=== PATIENT | female | born 2000 | race Caucasian/White ===

== ENCOUNTER 2025-03-10 11:46 | Outpatient (CLI) | payer OTHER, SELFPAY ==
[2025-03-10 16:05] LABS: Absolute Lymphocyte Count 1.82 X10^3/uL (0.83-4.51); Absolute Neutrophil Count 3.5 X10^3/uL (2.0-7.7); Basophil# 0.04 X10^3/uL; Basophil% 0.7 % (0-1); Eosinophil# 0.26 X10^3/uL; Eosinophils% 4.4 % (0-5); Hematocrit 41.4 % (37-47); Hemoglobin 14.1 g/dL (12.0-15.0); Lymphocyte # 1.82 X10^3/ul (0.83-4.51); Lymphocyte % 30.7 % (19-41); Mean Corp Hgb Conc 34.1 g/dL (32-36); Mean Corpuscular Hgb 30.3 pg (27.0-32.0); Mean Corpuscular Volume 88.8 fL (81-99); Mean Platelet Vol. 9.8 fl (6.2-12.0); Monocyte# 0.34 X10^3/uL; Monocyte% 5.7 % (0-10); NRBC Flagged by Analyzer 0 % (0-5); Neutrophil # 3.45 X10^3/uL (2.7-7.7); Neutrophil % 58.2 % (47-70); Platelet Count 277 K/mm3 (150-450); RBC Distribution Width CV 11.9 % (11.6-14.6); RBC Distribution Width SD 38.4 fl (35.1-43.9); Red Blood Count 4.66 M/mm3 (4.2-5.4); White Blood Count 5.9 K/mm3 (4.4-11.0)
[2025-03-11 15:09] LABS: ALB/GLOB Ratio 1.9 RATIO (0.9-2.4); AST(SGOT) 16 U/L (<=31); Alanine Aminotransfer ALT/SGPT 10 U/L (<=34); Alkaline Phosphatase 59 U/L (35-104); Anion Gap 13 (5-15); BUN 11 mg/dL (4-19); BUN/Creat Ratio 15.4 RATIO (10-20); Calcium,Total 9.8 mg/dL (7.6-11.0); Carbon Dioxide 21.2 mmol/L (21.0-32.0); Chloride 105 mmol/L (98-108); Creatinine, Serum 0.71 mg/dL (0.70-1.20); EST Glomerular Filtration Rate 122 (>60); Globulin 2.7 g/dL (2.2-4.2); Glucose 92 mg/dL (70-99); Protein, Total 7.6 g/dL (5.9-8.4); Sodium Level 139 mmol/L (133-145); Total Bilirubin 0.76 mg/dL (0.00-1.30)
[2025-03-11 15:51] LABS: Vitamin D,25 Hydroxy 13.7 ng/mL (30-100)
[2025-03-12 15:08] LABS: Endomysial Antibody IgA Negative (Negative); Immunoglobulin A 104 mg/dL (87-352); t-Transglutaminase IgA <2 U/mL (0-3)
[2025-03-14 23:07] LABS: ANTINUCLEAR ANTIBODIES DIRECT Negative (Negative); Anti-Centromere B Ab <0.2 AI (0.0-0.9); Anti-Chromatin <0.2 AI (0.0-0.9); Anti-Jo <0.2 AI (0.0-0.9); Anti-Scleroderma-70 AB <0.2 AI (0.0-0.9); Anti-dsDNA Ab <1 IU/mL (0-9); Beef 0.34 kU/L (Class I); Chocolate <0.10 kU/L (Class 0); Codfish <0.10 kU/L (Class 0); Corn <0.10 kU/L (Class 0); Egg, Whole <0.10 kU/L (Class 0); Milk (Cow) 0.72 kU/L (Class II); Mussels <0.10 kU/L (Class 0); Peanut <0.10 kU/L (Class 0); Pork <0.10 kU/L (Class 0); RNP Ab <0.2 AI (0.0-0.9); SJOGREN'S Anti-SS-A test < 0.2 AI (0.0-0.9); SJOGREN'S Anti-SS-B test < 0.2 AI (0.0-0.9); Salmon <0.10 kU/L (Class 0); Shrimp <0.10 kU/L (Class 0); Smith Ab <0.2 AI (0.0-0.9); Soybean <0.10 kU/L (Class 0); Tuna <0.10 kU/L (Class 0); Wheat <0.10 kU/L (Class 0)
== END 2025-03-10 23:59 | disposition home or self-care (01) ==
LOC: BIMLAB 11:49
PROVIDERS: PCP Internal Medicine; Referring Provider Internal Medicine; Visit Provider Internal Medicine
DX: R10.9 Unspecified abdominal pain (principal); G89.29 Other chronic pain
CPT/HCPCS: 36415; 80053; 82306; 82784; 83516; 84443; 85025; 86003; 86005; 86038; 86225; 86235; 86255

== ENCOUNTER → 2025-04-28 | Outpatient (CLI) | payer OTHER, SELFPAY ==
[2025-04-28 16:27] LABS: Hematocrit 41.3 % (37-47); Hemoglobin 14.1 g/dL (12.0-15.0); Immature Granulocytes Count 0.010 X10^3/uL (0.0-0.0); Mean Corp Hgb Conc 34.1 g/dL (32-36); Mean Corpuscular Volume 88.2 fL (81-99); Mean Platelet Vol. 9.5 fl (6.2-12.0); NRBC Flagged by Analyzer 0 % (0-5); Platelet Count 311 K/mm3 (150-450); RBC Distribution Width CV 11.9 % (11.6-14.6); RBC Distribution Width SD 38.2 fl (35.1-43.9); Red Blood Count 4.68 M/mm3 (4.2-5.4); White Blood Count 6.2 K/mm3 (4.4-11.0)
== END | disposition home or self-care (01) ==
LOC: LAB 15:56
PROVIDERS: PCP Internal Medicine; Referring Provider Nurse Practitioner Acute Care; Visit Provider Nurse Practitioner Acute Care
DX: K92.1 Melena (principal); R10.13 Epigastric pain; R11.0 Nausea; R10.32 Left lower quadrant pain
CPT/HCPCS: 36415; 85025

== ENCOUNTER → 2025-06-02 | Outpatient (CLI) | payer OTHER, SELFPAY ==
--- NOTE | 2025-06-02 10:06 | US_ITS ---
PROCEDURE: ABDOMEN LIMITED 06/02/2025 REASON FOR EXAM: EPIGASTRIC PAIN, BLOATING TECHNIQUE: Procedure Code: USABDL Modality: US Procedure: ABDOMEN LIMITED COMPARISON: None FINDINGS: Liver: Fatty infiltration of the liver is noted without a discrete lesion. No intrahepatic biliary dilatation, liver measures 14.9 cm Gallbladder: No stones, sludge, wall thickening or tenderness. Wall measures 1.9 mm, no pericholecystic fluid Common bile duct: Normal measuring 2.6 mm. Pancreas: Normal Kidneys: The right kidney measures 10.7 cm. No hydronephrosis, calculi or mass US/Abdomen Limited IMPRESSION: Fatty liver, no discrete lesion, otherwise unremarkable abdominal sonogram Reading Location: [id number]
== END | disposition home or self-care (01) ==
LOC: US 10:04
PROVIDERS: PCP Internal Medicine; Referring Provider Nurse Practitioner Acute Care; Visit Provider Nurse Practitioner Acute Care
DX: R11.0 Nausea (principal); R10.13 Epigastric pain; R10.32 Left lower quadrant pain
CPT/HCPCS: 76705

== ENCOUNTER 2025-06-16 10:24 | Day surgery (SDC) | payer OTHER, SELFPAY ==
[2025-06-16] VITALS (8 sets, daily range): BP systolic 86–109; BP diastolic 53–68; PULSE 55–65; RESP 14–16; TEMP 36.6–36.9; O2SAT 96–100; BMI 17.4
--- NOTE | 2025-06-16 10:30 | PRE.ANES_ITS ---
ASA Classification* ASA Classification ASA Classification: 2 Assessment & Plan Anesthesia* Anesthesia Assessment Anesthesia Assessment: Discussed sedation and/or anesthesia options, risks, benefits, and alternatives with patient/parents/legal guardian/POA. Questions invited. The patient/parents/legal guardian/POA seems to understand and agrees to proceed with anesthesia plan. Reviewed the physical assessment, medical history, allergy history and patient home medications list prior to surgery/procedure/anesthetic and documented any changes. Performed airway and anesthesia risk assessments. Anesthesia Type Anesthesia Type: MAC Anesthesia Focused Assessment* Airway Assessment Mouth opens: >3 cm Mallampati Score: II Labs Anesthesia Preop lab: CBC WBC, (4.4-11.0) 6.2 K/mm3 04/28/25, 16:00 RBC, (4.2-5.4) 4.68 M/mm3 04/28/25, 16:00 Hgb, (12.0-15.0) 14.1 g/dL 04/28/25, 16:00 Hct, (37-47) 41.3 % 04/28/25, 16:00 Plt Count, (150-450) 311 K/mm3 04/28/25, 16:00 CHEMISTRY Potassium, (3.3-5.1) 4.0 mmol/L 03/10/25, 11:49 Sodium, (133-145) 139 mmol/L 03/10/25, 11:49 BUN, (4-19) 11 mg/dL 03/10/25, 11:49 Creatinine, (0.70-1.20) 0.71 mg/dL 03/10/25, 11:49 Glucose, (70-99) 92 mg/dL 03/10/25, 11:49 TSH, (0.300-4.200) 2.570 uIU/mL 03/10/25, 11:49 COAG Pre-Assessment Diagnosis/Proposed Procedure Planned Operative Procedure(s): EGD Anesthesia History 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 When Was Last Pacemaker Check QUESTION #4 FULL TEXT: You/Your Family Experience fever (hyperthermia) with Anesthesia Last Oral Intake Last Oral intake: Last Oral Intake NPO since Meds taken in AM with sips of water? Meds patient instructed to take am of surgery PONV PONV - loader technician: PONV - loader technician Female Yes 06/11/25 09:25 HX of Motion Sickness No 06/11/25 09:25 HX of N/V After Surgery No 06/11/25 09:25 Non-Smoker Yes 06/11/25 09:25 Duration of Surgery greater No 06/11/25 09:25 than 60 minutes Number of Risk Factors 2 06/11/25 09:25 PONV Score Moderate Risk 06/11/25 09:25 Height & Weight Height & Weight: Anesthesia: Height & Weight Height 5 ft 4 in 05/19/25 15:00 Respiratory Assessment Respiratory Assessment - loader technician: Respiratory Tract Infection Hx - loader technician Hx Respiratory Tract Infection No 06/11/25 09:25 STOP Sleep Apnea STOP Sleep Apnea - loader technician: STOP Sleep Apnea - loader technician Hx Hypertension No 06/11/25 09:25 Hx Sleep Apnea No 06/11/25 09:25 CPAP BIPAP Do you snore loudly (louder No 06/11/25 09:25 than talking or can be heard Do you often feel tired/ No 06/11/25 09:25 fatigued/ sleepy during daytime? Has anyone observed you stop No 06/11/25 09:25 breathing during sleep? STOP Results Negative 06/11/25 09:25 QUESTION #5 FULL TEXT : Do you snore loudly (louder than talking or can be heard through closed doors)? 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 Specify any problems Hx of Preganancy in last 3 No 06/11/25 09:25 Months Nurse Filling Out Transfusion VCHRISTIN 06/11/25 09:25 & Questions: Date: 06/11/25 06/11/25 09:25 Time: 06/11/25 09:25 Patient unable to answer at this time (ie. confused, unrespo /Reproduction History /Reproductive History - loader technician: /Reproductive Hx- loader technician Hx Now No 06/11/25 09:25 Gestational Age (in weeks): EDC: Hx Hx Para Hx Section SAB No 06/11/25 09:25 [facility] Medical History History of steroid therapy Anemia Back pain Gastric reflux Non-smoker COVID Mononucleosis Depression Allergy/AdvReac Type Severity Reaction Status Date / Time Beef Containing Products AdvReac Severe Upset Verified 06/11/25 09:19 Stomach Milk Containing Products AdvReac Severe Upset Verified 06/11/25 09:19 (Dairy) Stomach Family History Mother Hyperlipidemia Father Heart disease Hypertension Grandmother Breast cancer Grandmother Diabetes Aunt Diabetes Surgical History Hx of tonsillectomy H/O wisdom tooth extraction Social History adopted: No household members: significant other and family number of children: 0 current occupational status: employed 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
--- NOTE | 2025-06-16 10:31 | PCM.HP.STD ---
HPI - General General Date of Admission: 06/16/25 Date of Service: 06/16/25 Chief Complaint: abdominal pain HPI Narrative 25-year-old female with a history of chronic abdominal pain, nausea, and possible lactose intolerance presenting with worsening symptoms over the last two years. The patient's clinical presentation suggests potential gastrointestinal pathology such as gastroesophageal reflux disease (GERD) or peptic ulcer disease, especially given the report of black stools indicative of possible upper gastrointestinal bleeding. Further complications may be attributed to a complex interplay of factors including dietary allergies, previous ovarian cysts, and underlying adenomyosis. Suspected constipation and overflow diarrhea may contribute to her current symptomatology due to fecal retention observed in prior imaging. CBC today H. pylori stool Pantoprazole 40mg once daily - Begin pantoprazole only after completing stool test. - Follow dietary restrictions for identified food allergies. - Drink plenty of fluids to help with bowel regularity. - Collect stool sample as per provided instructions and call [employer] for collection. - Schedule follow-up appointment in three weeks to review test results and progress. - Visit the lab today for blood work and contact us if you have any concerns or questions. - Address any unusual symptoms, such as continued black stools or increased pain, with immediate medical consultation. Please advise patient stool testing is negative for acute infection and calprotectin is normal. Stool was positive for Enterotoxigenic Escherichia coli (ETEC); however, this is not something that we treat unless patient are experiencing severe watery diarrhea. This is likely colonized with calprotectin being normal. 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 [facility] Medical History History of steroid therapy Anemia Back pain Gastric reflux Non-smoker COVID Mononucleosis Depression Allergy/AdvReac Type Severity Reaction Status Date / Time Beef Containing Products AdvReac Severe Upset Verified 06/11/25 09:19 Stomach Milk Containing Products AdvReac Severe Upset Verified 06/11/25 09:19 (Dairy) Stomach Family History Mother Hyperlipidemia Father Heart disease Hypertension Grandmother Breast cancer Grandmother Diabetes Aunt Diabetes Surgical History Hx of tonsillectomy H/O wisdom tooth extraction Social History adopted: No household members: significant other and family number of children: 0 current occupational status: employed 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 pets and animals: Yes (3) pets and animals: cat(s) sexually active: Yes Smoking Status: Never smoker Tobacco: How many years used: 1 how long ago did patient quit smokin alcohol intake: never substance use type: does not use caffeine: Yes (1) Type: coffee what type of physical activity do you participate in: walking frequency: daily do you feel safe at home: Yes ROS Constitutional Constitutional: Denies fatigue, fever(s), poor appetite, weight gain or weight loss Gastrointestinal Gastrointestinal: Denies belching, bloating, change in bowel habits, change in stool character, chewing difficulty, coffee ground emesis, constipation, cramping, diarrhea, dyspepsia, dysphagia, early satiety, excessive flatus, fecal incontinence, heartburn, hematemesis, hematochezia, hemorrhoids, loose stools, melena, nausea, odynophagia, rectal bleeding, tenesmus, vomiting or weight changes Physical Exam Const alert, oriented x3, no apparent distress and healthy appearing General Appearance: cooperative GI normal to inspection, nondistended, normoactive bowel sounds, soft to palpation, non-tender and non-distended Percussion: normal to percussion Rectal Exam: deferred Assessment & Plan Assessment/Plan (1) Abdominal cramping: (2) LLQ pain: (3) Nausea: PLAN: Assessment and Plan Assessment and Plan (1) Epigastric pain: Status: Acute (2) Nausea: Status: Acute (3) LLQ pain: Status: Acute (4) Abdominal cramping: Status: Acute Orders: Orders Abdomen Limited Today R10.13 - Epigastric pain, R10.32 - Left lower quadrant pain, R11.0 - Nausea Medications: New linaclotide (Linzess) take once daily 30 minutes before breakfast every morning 145 mcg PO QAM 90 caps 1RF Plan 25-year-old female presents for 3-week follow-up of epigastric and LLQ abdominal pain, nausea, and vomiting. Stool testing is negative for acute infection and calprotectin is normal. Stool was positive for Enterotoxigenic Escherichia coli (ETEC); however, this is not something that we treat unless patient are experiencing severe watery diarrhea. This is likely colonized with calprotectin being normal. She denies any improvement in her gastrointestinal symptoms with avoiding food allergens. She has noted an improvement in nausea and near resolution of emesis with pantoprazole 40 mg once daily. However, she does continue to experience epigastric tenderness and heartburn. She denies any use of nonsteroidal medications in the past month. She is continuing to experience of bloating and constipation, reporting going up to a week without a bowel movement. She has increased her oral intake, now eating at least 2 meals daily. Her weight is stable. I have scheduled her for an abdominal ultrasound and EGD. She will continue pantoprazole daily and start Linzess 145 mcg once daily. She will follow-up in 3 weeks. Plan Details Follow Up: 3 Weeks
[2025-06-16 10:50] LABS: Internal QC Validated? YES +Cl - CLEAR BKGD; Pregnancy, Urine Negative Negative; Record Kit Lot#,Urine Preg 0000964736
[2025-06-16] MEDS: Lactated Ringers 1,000 ML 15 ML IV (11:07)
--- NOTE | 2025-06-16 11:30 | EGD_PTH ---
PATIENT: EDISON PUENTE LOC: EN U#:[id number] AGE/SX: 25/F ROOM: RE06/16/[address]: Dr. Mike Alarcon DO : 2000 BED: DIS: 06/16/2025 SPEC #: [id number] RECD: 06/16/25 13:50 STATUS: LOUIS REMalu #: [id number] TEAGAN: 06/16/25 11:[address]: Mike Alarcon DEPT: SURGICAL PATHOLOGY RECD BY: Jon Covarrubias ENTERED: 06/16/25 14:34 SP TYPE: EGD BIOPSY PHILIPPE DR: Dr. Melissa Newsome MD Tissues: A - Duodenum, NOS B - Gastric mucous membrane C - Esophagus, NOS Procedures: Surgery Specimen Level IV HEADER OPERATION: EGD PRE-OP DIAGNOSIS: Epigastric pain, nausea, left lower quadrant pain, abdominal cramping TISSUE SUBMITTED: A- Duodenum biopsy, B- Gastric body biopsy, C- Distal esophagus biopsy MICROSCOPIC DIAGNOSIS A. Duodenum, biopsy: * Normal villous architecture with Bradley gland hyperplasia. * Negative for increased intraepithelial lymphocytes. B. Gastric body, biopsy: * Antral and oxyntic mucosa with features of reactive gastropathy - see note. * Negative for Helicobacter-like organisms (H&E). Note: A fragment of small intestinal mucosa is also noted, favor carryover from part A. Recommend clinical/endoscopic correlation. C. Distal esophagus, biopsy: * Columnar mucosa negative for goblet cell metaplasia. * Focal scant benign squamous mucosa. MICROSCOPIC DESCRIPTION Slides are reviewed. GROSS DESCRIPTION A. Received in fixative is one container labeled with the patient's name and designated "Duodenum biopsy." The specimen consists of two irregular fragments of cameron tissue that measure 0.4 and 0.6 cm. The specimen is totally submitted in one cassette. B. Received in fixative is one container labeled with the patient's name and designated "Gastric body biopsy." The specimen consists of three irregular fragments of cameron tissue that measure <0.1 to 0.4 cm. Smallest fragment may not survive processing. The specimen is totally submitted in one cassette. C. Received in fixative is one container labeled with the patient's name and designated "Distal esophagus biopsy." The specimen consists of two irregular fragments of cameron tissue, each measuring 0.4 cm. The specimen is totally submitted in one cassette. [place] 06/16/2025 CPT:64386x5
--- NOTE | 2025-06-16 12:18 | OP.EGD_ITS ---
Patient Name: Heide York Procedure Date: 06/16/2025 11:59 AM Date of : 2000 Age: 25 Procedure: Upper GI endoscopy Indications: Epigastric abdominal pain, Functional Dyspepsia, Indigestion, Heartburn Providers: Mike Alarcon DO Referring MD: Melissa Newsome Md Medicines: Monitored Anesthesia Care Patient Profile: This is a 25 year old female. Refer to note in patient chart for documentation of history and physical. Patient has symptoms of acute epigastric abdominal pain. Complications: No immediate complications. Procedure: Pre-Anesthesia Assessment: - Prior to the procedure, a History and Physical was performed, and patient medications and allergies were reviewed. The patient is competent. The risks and benefits of the procedure and the sedation options and risks were discussed with the patient. All questions were answered and informed consent was obtained. Patient identification and proposed procedure were verified by the physician in the pre-procedure area. Mental Status Examination: alert and oriented. Airway Examination: normal oropharyngeal airway and neck mobility. Respiratory Examination: clear to auscultation. CV Examination: normal. Prophylactic Antibiotics: The patient does not require prophylactic antibiotics. Prior Anticoagulants: The patient has taken no anticoagulant or antiplatelet agents except for NSAID medication. ASA Grade Assessment: II - A patient with mild systemic disease. After reviewing the risks and benefits, the patient was deemed in satisfactory condition to undergo the procedure. The anesthesia plan was to use monitored anesthesia care (MAC). Immediately prior to administration of medications, the patient was re-assessed for adequacy to receive sedatives. The heart rate, respiratory rate, oxygen saturations, blood pressure, adequacy of pulmonary ventilation, and response to care were monitored throughout the procedure. The physical status of the patient was re-assessed after the procedure. After obtaining informed consent, the endoscope was passed under direct vision. Throughout the procedure, the patient's blood pressure, pulse, and oxygen saturations were monitored continuously. The Endoscope was introduced through the mouth, and advanced to the third part of the duodenum. Small bowel enteroscopy was deemed necessary. The upper GI endoscopy was accomplished without difficulty. The patient tolerated the procedure well. Scope In: 12:07:03 PM Scope Out: 12:11:51 PM Total Procedure Duration Time 0 hours 4 minutes 48 seconds Findings: The Z-line was irregular and was found 39 cm from the incisors. Biopsies were taken with a cold forceps for histology. Verification of patient identification for the specimen was done. Estimated blood loss was minimal. Patchy mildly erythematous mucosa without bleeding was found in the gastric body. Biopsies were taken with a cold forceps for histology. Verification of patient identification for the specimen was done. Estimated blood loss was minimal. Biopsies were taken with a cold forceps for Helicobacter pylori testing. Verification of patient identification for the specimen was done. Estimated blood loss was minimal. Patchy mildly erythematous mucosa without active bleeding and with no stigmata of bleeding was found in the entire duodenum. Biopsies were taken with a cold forceps for histology. Verification of patient identification for the specimen was done. Estimated blood loss was minimal. Impression: - Z-line irregular, 39 cm from the incisors. Biopsied. - Erythematous mucosa in the gastric body. Biopsied. - Erythematous duodenopathy. Biopsied. Recommendation: - Discharge patient to home. - Resume previous diet. - Continue present medications. Procedure Code(s): --- Professional --- 90211, Small intestinal endoscopy, enteroscopy beyond second portion of duodenum, not including ileum; with biopsy, single or multiple CPT copyright 2021 [employer]. All rights reserved. The codes documented in this report are preliminary and upon soda fountain clerk review may be revised to meet current compliance requirements. Mike Alarcon DO 06/16/2025 12:17:43 PM This report has been signed electronically. Number of Addenda: 0 Note Initiated On: 06/16/2025 11:59 AM
--- NOTE | 2025-06-16 12:18 | OP.PROVAT_ITS ---
06/16/2025 Melissa Newsome Md Re : Upper GI endoscopy procedure for Heide York Dear Jerod This procedure was performed on Monday, June 16, 2025. My impressions and recommendations are as follows: Impressions : - Z-line irregular, 39 cm from the incisors. Biopsied. - Erythematous mucosa in the gastric body. Biopsied. - Erythematous duodenopathy. Biopsied. Recommendations : - Discharge patient to home. - Resume previous diet. - Continue present medications. My findings are described in the full procedure note, which is enclosed. If I can be of further assistance, please feel free to contact me at . Sincerely, Mike Alarcon, 06/16/2025 12:17:43 PM This report has been signed electronically.
--- NOTE | 2025-06-16 12:31 | PCM.POST.ANE ---
Anesthesia: Postop Eval I Current Vital Signs Temperature: 97.9 F Pulse Rate: 61 Blood Pressure: 89/53 Respiratory Rate: 16 Pulse Ox: 97 Oxygen Delivery Method: Room Air Assessment Airway patent: Yes Spontaneous unlabored respirations: Yes Mental status: Asleep nausea: No Vomiting: No Anesthesia Complication: No Fluid Hydration Crystalloid volume administer (ml): 400 Total IV fluid infused: 400 Progress Note Anesthesia document: Postop Eval 1 completed: Yes
--- NOTE | 2025-06-16 13:04 | PCM.POSTANE2 ---
Anesthesia Postop Eval I Sum Postop Eval Completion status Anesthesia document: Postop Eval 1 completed: Yes Anesthesia Postop Eval I Summary Anesthesia Postop Eval I Summary: Anesthesia Postop Eval I: Assessment Summary Airway patent Yes 06/16/25 12:32 [email or web address] Spontaneous unlabored Yes 06/16/25 12:32 [email or web address] respirations Mental status Asleep 06/16/25 12:32 [email or web address] nausea No 06/16/25 12:32 [email or web address] Vomiting No 06/16/25 12:32 [email or web address] Anesthesia Postop Eval I: Fluid Summary Crystalloid volume administer 400 06/16/25 12:32 [email or web address] (ml) Colloids volume administered ( ml) Blood Product volume administered (ml) Total IV fluid infused 400 06/16/25 12:32 [email or web address] Anesthesia Postop Eval I: Summary Notes Anesthesia Complication No 06/16/25 12:32 [email or web address] Anesthesia Complication Comment: Post-operative progress note Anesthesia: Postop Eval II Evaluation Mental status: Awake Pain Level: 0 nausea: No Vomiting: No
== END 2025-06-16 13:22 | disposition home or self-care (01) ==
LOC: EN 10:29 → AC 10:29
PROVIDERS: Anesthesiology; PCP Internal Medicine; Referring Provider Internal Medicine; Visit Provider Internal Medicine Gastroenterology
PROC: 0DJ08ZZ Inspection of Upper Intestinal Tract, Via Natural or Artificial Opening Endoscopic (ICD-10-PCS; CPT 43235; principal; 2025-06-16 11:25)
DX: R10.32 Left lower quadrant pain (principal); R10.13 Epigastric pain; R11.2 Nausea with vomiting, unspecified; K31.89 Other diseases of stomach and duodenum; K92.89 Other specified diseases of the digestive system
CPT/HCPCS: 43239; 81025; 88305; J2405

== ENCOUNTER → 2025-06-19 | Outpatient (CLI) | payer OTHER, SELFPAY | END | disposition home or self-care (01) | LOC: LABSPEC 12:11 | PROVIDERS: PCP Internal Medicine; Referring Provider Nurse Practitioner Family; Visit Provider Nurse Practitioner Family | DX: Z12.4 Encounter for screening for malignant neoplasm of cervix (principal) | CPT/HCPCS: 88175; G0145 ==

== ENCOUNTER 2025-09-16 20:16 | Emergency (ER) | payer OTHER, SELFPAY ==
[2025-09-16 20:17] VITALS: BP 111/67; PULSE 76; RESP 16; TEMP 37.2; O2SAT 100; BMI 18.0
--- NOTE | 2025-09-16 20:42 | US_ITS ---
PROCEDURE: BREAST LIMITED UNILATERAL 09/16/2025 REASON FOR EXAM: F, Age 25 y/o , SWELLING, WHITE DISCHARGE FROM NIPPLE, NOT BREASTF COMPARISON: . TECHNIQUE: Procedure Code: USBRSTLIMIT Modality: US Procedure: BREAST LIMITED UNILATERAL FINDINGS: Left breast 7 o'clock 3 cm from nipple 2.3 x 0.9 cm hypoechoic circumscribed lesion with vascularity. No mammogram provided. US/Breast Limited Unilateral IMPRESSION: Left breast hypoechoic circumscribed solid lesion at the 7 o'clock position, 3 cm from the nipple, measuring 2.3 x 0.9 cm, with internal vascularity. Imaging features are indeterminate. BI-RADS Category 4. Ultrasound-guided biopsy is recommended. No prior mammogram is available for correlation. Reading Location: [facility]
--- OUTSIDE RECORDS SUMMARY | 2025-09-16 20:53 | XMS RPT_ITS | CCD ---
Author Organization [facility] Care Team Providers Care Hoisting Machine Operator Name Role Phone BHOJRAJ, WILFREDO P. Referring Unavailable BHOJRAJ, WILFREDO P. Attending Unavailable BHOJRAJ, WILFREDO P. Primary Care Unavailable MONICA, JESSIE W Referring Unavailable MARLON SCHMITZ Attending Unavailable BHOJRAJ, WILFREDO Primary Care Unavailable MONICA, JESSIE Hayes Attending Unavailable BHOJRAJ, WILFREDO Primary Care Unavailable SELF, SELF Referring Unavailable MONICA, JESSIE W Referring Unavailable BHOJRAJ, WILFREDO Primary Care Unavailable BHOJRAJ, WILFREDO Primary Care Unavailable MONICA, JESSIE W Admitting Unavailable MONICA, JESSIE W Attending Unavailable BHOJRAJ, WILFREDO Primary Care Unavailable MONICA, JESSIE Hayes Attending Unavailable BHOJRAJ, WILFREDO Primary Care Unavailable SELF, SELF Referring Unavailable MONICA, JESSIE Hayes Attending Unavailable SELF, SELF Referring Unavailable BHOJRAJ, WILFREDO P Primary Care Unavailable MARLON TRAYLOR Attending Unavailable [facility] Primary Care Provider U navailable Unavailable Primary Care Provider Unavailabl e Dr. Melissa Newsome MD Attending Provider Dr. Melissa Newsome MD Primary Care Provider [phone] Dr. Melissa Newsome MD Referring Provider MICHELLE TUBBS Attending Unavailable FABIOLA HUANG Attending Unavailable Mary Cervantes Attending Provider Mary Cervantes Referring Provider Jerod ROME, Dr. Torres Attending Physician Dr. Melissa Newsome MD Primary Care Physician Mary Cervantes Attending Physician [phone] Dr. Mike Alarcon DO Attending Physician [phone] Agnes VELAZCO, Dr. Mckeon Nurse Practitioner Jaz Bustos Attending Physician [phone] Rachel MANAGER EDUCATION-CJaz Referring Provider [phone] NO, PHYSICIAN Primary Care Unavailable GREGORY GARDNER Attending Unavailable Mary Chauhan Attending Unavailable Mary Chauhan Referring Unavailable Jerod, Melissa Primary Care Unavailable Tien, Mary Referring Unavailable Jerod, Melissa Primary Care Unavailable Mary Chauhan Attending Unavailable Jerod, Melissa Primary Care Unavailable Jaz Ramos Attending Unavailable Jaz Ramos Referring Unavailable Jerod, Melissa Referring Unavailable Jerod, Melissa Primary Care Unavailable [place], Melissa Attending Unavailable [place], Melissa Primary Care Unavailable Mike Alarcon Attending Unavailable [place], Melissa Referring Unavailable [place], Melissa Primary Care Unavailable TienMary green Attending Unavailable [place], Melissa Referring Unavailable [place], Melissa Primary Care Unavailable Mike Alarcon Consulting Unavailable FriendMike Attending Unavailable [place], Melissa Referring Unavailable Jerod, Melissa Attending Unavailable Jerod, Melissa Referring Unavailable TienKathyMary Attending Unavailable Jerod, Melissa Primary Care Unavailable TienMary Attending Unavailable Jerod, Melissa Primary Care Unavailable [place], Melissa Referring Unavailable [place], Melissa Primary Care Unavailable Jaz Ramos Attending Unavailable Jerod, Melissa Referring Unavailable [place] , Dr. Torres Primary Care Physician Dr. Melissa Newsome MD Referring Provider Tine MANAGER EDUCATION-Mary Jones Attending Physician [phone] Tien MANAGER EDUCATION-CMary Referring Provider Agnes VELAZCO, Dr. Mckeon Attending Physician [phone] Dr. Mike Alarcon DO Nurse Practitioner Jaz Bustos Attending Physician Jaz Bustos Referring Provider [phone] Allergies Allergy Classification Reported Allergen(s) Allergy Type Date of Onset Reaction(s) Facility (4 sources) Beef Containing Products Propensity to adverse reactions 5 Upset Stomach [facility] (4 sources) Milk Containing Products (Dairy) Propensity to adverse reactions Upset Stomach [facility] (1 source) Beef Containing Products Drug allergy (disorder) [facility] Repository (1 source) Milk Containing Products (Dairy) Drug allergy (disorder) [facility] Repository Medications Current Medications Medication Drug Class(es) Dates Sig (Normalized) Sig (Original) cephalexin 250 mg oral capsule (1 source) Cephalosporin Antibacterial Start: 07-30-2024 End: 08-06-2024 take 1 capsule by mouth four times daily cephALEXin (KEFLEX) 250 mg capsule Indications: Acute UTI Take 1 capsule by mouth four times daily for 7 days. 28 capsule 07/30/2024 08/06/2024 Active levonorgestrel 0.368600 mg/hr intrauterine system (11 sources) Progestin, Progestin-containin g Intrauterine Device Start: 06-19-2025 Levonorgestrel (Kyleena) 17.5 mcg/24 hr (5 yrs) 19.5 mg intrauterine device Active 1 NMA INTRA-UTER ONCE June 18, 2025 11:00pm as a single dose Complies with drug therapy Start: 06-19-2025 Start: 06-19-2025 Start: 12-24-2020 levonorgestrel (KYLEENA) 17.5 mcg/24 hrs (5 yrs) 19.5 mg IUD Take by intrauterine route. 12/24/2020 Active Comment on above: Take by intrauterine route. lubiprostone 0.008 mg oral capsule (1 source) Chloride Channel Activator Start: take 1 capsule by mouth twice daily Lubiprostone (Amitiza) 8 mcg capsule Active 8 ug PO TWICE A DAY 60 July 13, 2025 11:00pm Complies with drug therapy nitrofurantoin, macrocrystals 25 mg / nitrofurantoin, monohydrate 75 mg oral capsule (1 source) Nitrofuran Antibacterial Start: End: take 1 capsule by mouth twice daily nitrofurantoin monohydrate and macrocrystal (MACROBID) 100 mg capsule Indications: Urinary frequency Take 1 capsule by mouth two times a day for 5 days. 10 capsule 01/13/2025 01/18/2025 Active [place] (Nk) (1 source) Start: [place] (Nk) Active March 10, 2025 12:00am oseltamivir 75 mg oral capsule (1 source) Neuraminidase Inhibitor Start: End: take 1 capsule by mouth twice daily oseltamivir (TAMIFLU) 75 mg capsule Take 1 capsule by mouth two times a day for 5 days. 10 capsule 0 12/16/2023 12/21/2023 Active Comment on above: Take 1 capsule by mo [facility] two times a day for 5 days. sucralfate 1000 mg oral tablet (2 sources) Aluminum Complex Start: End: take 1 tablet by mouth before mealtime Sucralfate (Carafate) 1 gram tablet Discontinued 1 g PO before meals 42 14 0 July 13, 2025 11:00pm July 26, 2025 11:00pm July 28, 2025 12:08am sulfamethoxazole 800 mg / trimethoprim 160 mg oral tablet (1 source) Dihydrofolate Reductase Inhibitor Antibacterial, Sulfonamide Antimicrobial Start: End: take 1 tablet by mouth twice daily sulfamethoxazole-tri methoprim (BACTRIM DS) 800-160 mg per tablet Indications: Urinary frequency Take 1 tablet by mouth two times a day for 5 days. 10 tablet 0 05/10/2024 05/15/2024 Active Completed/Discontinued Medications Medication Drug Class(es) Dates Sig (Normalized) Sig (Original) cholecalciferol 1.25 mg oral capsule (8 sources) Vitamin D Start: 03-11-2025 End: 04-28-2025 take 1 capsule by mouth every week Cholecalciferol (Vitamin D3) 1,250 mcg (50,000 unit) capsule Discontinued 1250 ug PO EVERY WEEK 8 0 March 10, 2025 11:00pm April 28, 2025 2:08pm fluconazole 150 mg oral tablet (4 sources) Azole Antifungal Start: 01-13-2025 End: 01-13-2025 fluconazole (DIFLUCAN) 150 mg tablet Indications: Urinary frequency Take 1 tablet by mouth one time only for 1 dose. If symptoms have not improved in 72 hours may take second dose 2 tablet 01/13/2025 01/13/2025 Start: 07-30-2024 End: 07-30-2024 fluconazole (DIFLUCAN) 150 m g tablet Indications: Acute UTI Take 1 tablet by mouth one time only for 1 dose. Repeat in 3 days as needed. 2 tablet 07/30/2024 07/30/2024 Active Start: 05-08-2024 End: 05-11-2024 take 1 tablet by mouth once daily fluconazole (DIFLUCAN) 150 mg tablet Take 1 tablet by mouth once daily for 1 day. 1 tablet 0 05/10/2024 05/11/2024 Active FLUoxetine 40 mg oral capsule (9 sources) Serotonin Reuptake Inhibitor Start: 12-10-2021 End: 03-10-2025 Fluoxetine (Prozac) 40 mg Capsule Discontinued mg December 09, 2021 11:00pm March 10, 2025 10:07am Iron (9 sources) Start: 12-10-2021 End: 03-10-2025 iron Discontinued December 09, 2021 11:00pm March 10, 2025 10:07am Start: 12-10-2021 End: 03-10-2025 iron Discontinued November 12:00am March 10, 2025 11:07am linaclotide 0.29 mg oral capsule (10 sources) Guanylate Cyclase-C Agonist Start: 05-19-2025 End: 06-11-2025 take 1 capsule by mouth once daily 30 minutes before breakfast Linaclotide (Linzess) 145 mcg capsule Discontinued 145 ug PO EVERY MORNING 90 May 18, 2025 11:00pm June 11, 2025 8:20am take once daily 30 minutes before breakfast every morning Start: 05-19-2025 End: 05-19-2025 take 1 capsule by mouth once daily in the morning Linaclotide (Linzess) 290 mcg capsule Discontinued 290 ug PO EVERY MORNING 90 May 18, 2025 11:00pm May 19, 2025 2:31pm Multivitamin tablet (7 sources) Start: 04-28-2025 End: 06-11-2025 Multivitamin tablet Disconti nued 1 {tbl} PO EVERY MORNING April 27, 2025 11:00pm June 11, 2025 8:20am Start: 04-28-2025 End: 06-11-2025 Multivitamin tablet Disconti nued 1 {tbl} PO EVERY MORNING April 28, 2025 12:00am June 11, 2025 9:20am Start: 04-28-2025 Multivitamin t ablet Active 1 {tbl} PO EVERY MORNING April 28, 2025 12:00am pantoprazole 40 mg delayed release oral tablet (7 sources) Proton Pump Inhibitor Start: 04-28-2025 End: 06-11-2025 take 1 tablet by mouth once daily Pantoprazole 40 mg tablet,delayed release (DR/EC) Discontinued 40 mg PO daily 90 1 April 27, 2025 11:00pm June 11, 2025 8:20am Problems Active Problems Problem Classification Problem Date Documented Da te Episodic/Chronic Abdominal pain (20 sources) Chronic abdominal pain; Translations: [Pain in pelvis] Onset: 01-28-2025 Episodic Administrative/social admission (8 sources) First encounter by subject; Translations: [Persons encountering health services in other specified circumstances] 03-10-2025 Episodic Anxiety disorders (7 sources) Mild anxiety; Translations: [Anxiety disorder, unspecified] 03-10-2025 Chronic Contraceptive and procreative management (1 source) Patient encounter status; Translations: [Encounter for contraceptive management, unspecified] 07-04-2025 Episodic Comment on above: No PA needed for IUD . 07/04/25 Ref#[id number] Fever of unknown origin (1 source) Fever; Translations: [Fever, unspecified] 12-16-2023 Episodic Gastrointestinal hemorrhage (15 sources) Melena; Translations: [Melena] Onset: 05-07-2025 04-28-2025 Episodic Genitourinary symptoms and ill-defined conditions (4 sources) Increased frequency of urination; Translations: [Frequency of micturition] Onset: 01-13-2025 05-08-2024 Episodic Headache; including migraine (9 sources) Tension-type headache; Translations: [Tension-type headache, unspecified, not intractable] 12-16-2024 Chronic Influenza (1 source) Influenza due to Influenza B virus; Translations: [Influenza due to other identified influenza virus with other respiratory manifestations] 12-16-2023 Episodic Malaise and fatigue (7 sources) Fatigue; Translations: [Other fatigue] 03-10-2025 Episodic Menstrual disorders (8 sources) Irregular periods; Translations: [Irregular menstruation, unspecified] 06-19-2025 Chronic Mood disorders (7 sources) Moderate major depression ; Translations: [Major depressive disorder, single episode, moderate] 03-10-2025 Chronic Nausea and vomiting (20 sources) Nausea; Translations: [Nausea] Onset: 06-17-2025 04-28-2025 Episodic Other female genital disorders (1 source) Vaginal discharge; Translations: [Other specified noninflammatory disorders of vagina] 05-08-2024 Episodic Other gastrointestinal disorders (2 sources) Constipation; Translations: [Constipation, unspecified] 07-14-2025 Episodic Other nervous system disorders (1 source) Other chronic pain; Translations: [Other chronic pain] Onset: 03-10-2025 Chronic Other screening for suspected conditions (not mental disorders or infectious disease) (1 source) Encounter for screening for malignant neoplasm of cervix; Translations: [Encounter for screening for malignant neoplasm of cervix] Onset: 07-18-2025 Episodic Residual codes; unclassified (7 sources) Medication refused; Translations: [Immunization not carried out because of patient refusal] 03-10-2025 Episodic Spondylosis; intervertebral disc disorders; other back problems (10 sources) Neck pain; Translations: [Cervicalgia] 12-16-2024 Episodic Unclassified (2 sources) R10.9 - Unspecified abdominal pain,G89.29 - Other chronic pain Unclassified (1 source) Acute midline low back pain without sciatica; Translations: [Acute midline low back pain without sciatica] Onset: 03-11-2025 Urinary tract infections (1 source) Acute urinary tract infection; Translations: [Urinary tract infection, site not specified] 07-30-2024 Episodic Past or Other Problems Problem Classification Problem Date Documented Da te Episodic/Chronic Other gastrointestinal disorders (2 sources) Constipation, unspecified; Translations: [Constipation, unspecified] Onset: 05-06-2025 Episodic Results Test Name Value Interpretation Reference Range Facil ity Gastroenterology Visit Repor ton 07-14-2025 Gastroenterology Visit Report [facility] [address] [place] [address] OFFICE VISIT Date of Service: 07/14/25 MR#: [id number] Acct: [id number] Name: EDISON PUENTE Rep #: [id number] : 2000 Provider: JOSIE olguin Age/Sex: 25/F Location: [facility] [place] Status: Signed Intake Vital Signs 05/19/25 15:00 06/19/25 09:03 07/14/25 14:57 Height 5 ft 4 in 5 ft 4 in 5 ft 4 in Weight: 103 lb 3 oz 100 lb 6 oz BMI 17.6 17.2 BP 111/74 108/72 Respiration 16 Pulse 72 Temp 98.2 F Temp Source Temporal Pulse Oximetry (%) 98 Oxygen Delivery Method room air Intake Visit Reasons: F/u Abdominal cramping Chief Complaint: 3 week follow-up Entertainment Dancer Required: No Accompanied by: Self Is patient in pain?: Yes Pain scale (1-10): 3 Allergies Beef Containing Products Adverse Reaction (Severe, Verified 07/14/25 14:58) Upset Stomach Milk Containing Products (Dairy) Adverse Reaction (Severe, Verified 07/14/25 14:58) Upset Stomach Medications ???Medication ???Instructions ???Recorded ???Confirmed ???Type levonorgestrel 17.5 mcg/24 hr (up 1 device intrauterine ONCE 07/14/25 History to 5 yrs) 19.5mg intrauterine device (Kyleena) lubiprostone 8 mcg capsule 8 mcg PO BID #60 caps 07/14/25 Rx (Amitiza) sucralfate 1 gram tablet (Carafate) 1 g PO QAC 2 weeks #42 tabs 07/14/25 Rx PFSH Medical History Contraceptive management History of steroid therapy Anemia Back pain Gastric reflux Non-smoker COVID Mononucleosis Depression Surgical History Hx of tonsillectomy H/O wisdom tooth extraction Family History Mother Hyperlipidemia Endometriosis Father Heart disease Hypertension Grandmother Breast cancer Grandmother Diabetes Aunt Diabetes Social History adopted: No household members: significant other and family number of children: 0 current occupational status: employed 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 pets and animals: Yes (3) pets and animals: cat(s) sexually active: Yes Smoking Status: Never smoker Tobacco: How many years used: 1 how long ago did patient quit smokin alcohol intake: never substance use type: does not use caffeine: Yes (1) Type: coffee what type of physical activity do you participate in: walking frequency: daily seatbelt use: always do you feel safe at home: Yes HPI HPI Chief Complaint: 3 week follow-up Details: - has not noticed any difference avoiding beef and dairy - Linzess - did not have a BM for a week and caused abdomnal pain - stopped pantoprazole after 1 week also - ABD US showed fatty liver - 100lbs and BMI 17.2% The patient is a 25-year-old female presenting with persistent constipation and epigastric pain as the primary concerns. She reports epigastric tenderness, heartburn, and has been experiencing intervals of constipation lasting up to a week and a half, with minimal bowel movement characterized by small, hard stool. Constipation has not improved with Linzess, which she discontinued due to severe abdominal discomfort post-ingestion. She has a past medical history of nausea and vomiting, partially resolving with pantoprazole 40 mg daily, which she has since stopped. She also previously noted epigastric, left upper quadrant pain following exposure to a possible food allergen, with no clear improvement upon dietary adjustments. Current dietary intake includes minimized consumption of beef and dairy. Recent stool testing returned negative for acute infection, but positive for exotogenic E. coli, which is not being treated due to absence of severe diarrhea symptoms. She underwent upper endoscopy on 06/16, revealing gastric and duodenal inflammation consistent with mild gastritis, with biopsies negative for Malone's esophagus and H. pylori infection. Liver ultrasound on 06/02 indicated fatty liver without discrete lesions, raising a potential concern for lean NAFLD, despite patient denying any alcohol consumption and maintaining a low body weight, historically fluctuating but recently noted at 100 pounds. ROS Const Constitutional: Positive for fatigue; No fever(s) or weight change ENT ENT: No difficulty swallowing Gastro GI: Positive for abdominal pain, bloating, constipation, diarrhea and nausea/dyspepsia; No belching, change in bowel habits, change in stool character, coffee ground emesis, cramping, heartburn, difficulty swallowing, feeling full early, excessive flatus, incontinent of stools, Vomiting blood/hematemesis, Blood in stool, loose stools, Black,t (more content not included)... Normal [facility] PAP I-G w/rfx hrHPV-Aptimaon 06-26-2025 ADEQ Comment Normal . [facility] Comment on above: Order Comment: Speci men Comment: [id number] Specimen Comment: No. of containers..01 ThinPrep Vial Result Comment: Sati sfactory for evaluation. Endocervical and/or squamous metaplastic cells (endocervical component) are present. Performed By: #### L [id number] #### [facility] [address] [place], [address] COMM . Normal . [facility] Comment on above: Order Comment: Speci men Comment: [id number] Specimen Comment: No. of containers..01 ThinPrep Vial Performed By: #### L [id number] #### [facility] [address] [place], [place], [id number] COMMENT Comment Normal . [facility] Comment on above: Order Comment: Speci men Comment: [id number] Specimen Comment: No. of containers..01 ThinPrep Vial Result Comment: This liquid based ThinPrep(R) pap test was screened with the use of an image guided system. Performed By: #### L [id number] #### [facility] [address] [place], [place], [id number] DIAG Comment Normal . [facility] Comment on above: Order Comment: Speci men Comment: [id number] Specimen Comment: No. of containers..01 ThinPrep Vial Result Comment: NEGA TIVE FOR INTRAEPITHELIAL LESION OR MALIGNANCY. THIS SPECIMEN WAS RESCREENED PART OF OUR SERVICE REPRESENTATIVE PROGRAM. Performed By: #### L [id number] #### [facility] [address] [place], [place], [id number] HPV RFLX Comment Normal . [facility] Comment on above: Order Comment: Speci men Comment: [id number] Specimen Comment: No. of containers..01 ThinPrep Vial Result Comment: The HPV DNA reflex criteria were not met with this specimen result therefore, no HPV testing was performed. Performed at: [address] [id number] Photocomposition Keyboard Operator: Martita Jordan MD, Phone: [phone] Performed By: #### L [id number] #### [facility] [address] [place], [place], [address] PAPSMR Comment Normal . [facility] Comment on above: Order Comment: Speci men Comment: [id number] Specimen Comment: No. of containers..01 ThinPrep Vial Result Comment: The Pap smear is a screening test designed to aid in the detection of premalignant and malignant conditions of the uterine cervix. It is not a diagnostic procedure and should not be used as the sole means of detecting cervical cancer. Both false-positive and false-negative reports do occur. Performed By: #### L [id number] #### [facility] [address] [place], [place], [address] PERFORM Comment Normal . [facility] Comment on above: Order Comment: Speci men Comment: [id number] Specimen Comment: No. of containers..01 ThinPrep Vial Result Comment: Meg Ashby, Pleat Patternmaker (ASCP) Performed By: #### L [id number] #### [facility] [address] [place], [place], [address] QC REV Comment Normal . [facility] Comment on above: Order Comment: Speci men Comment: [id number] Specimen Comment: No. of containers..01 ThinPrep Vial Result Comment: Ingrid Pantoja Pleat Patternmaker (ASCP) Performed By: #### L [id number] #### [facility] [address] [place], [place], [address] Cervical or vagninal specime n microscopic examination by cytology stain (reported asOrdered By: Jaz Ramos on 06-19-2025 Cytology report Cyto stain Doc (Cvx/Vag) Comment . [facility] Comment on above: The Pap smear is a s creening test designed to aid in thedetection of premalignant and malignant conditions of theuterine cervix. It is not a diagnostic procedure andshould not be used as the sole means of detecting cervicalcancer. Both false-positive and false-negative reports dooccur. Laboratory - CytologyOrdered By: Jaz Ramos on 06-19-2025 Pleat Patternmaker Cyto stain Nom (Cvx/Vag) [ID] Comment . [facility] Comment on above: Khang Gonzalesl ogmarie (ASCP) Laboratory - Miscellaneous t estsOrdered By: Jaz Ramos on 06-19-2025 Service comment (Unsp spec) [Interp] . . [facility] No Panel InformationOrdered By: Jaz Ramos on 06-19-2025 Pap Smear QC Review Comment . [facility] Comment on above: Karan Hartley (ASCP) Pap Smear Specimen Adequacy Comment . [facility] Comment on above: Satisfactory for tennille luation. Endocervical and/or squamous metaplasticcells (endocervical component) are present. 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: No Is patient in pain?: Yes Pain scale (1-10): 6 Allergies Beef Containing Products Adverse Reaction (Severe, Verified 06/19/25 09:04) Upset Stomach Milk Containing Products (Dairy) Adverse Reaction (Severe, Verified 06/19/25 09:04) Upset Stomach Medications ???Medication ???Instructions ???Recorded ???Confirmed ???Type levonorgestrel 17.5 mcg/24 hr (up 1 device intrauterine ONCE 06/19/25 History to 5 yrs) 19.5mg intrauterine device (Kyleena) Is last menstrual period known: Yes Last Menstrual Period: 06/16/25 Post menopausal: No Patient : No : No Control Method: kyleena [facility] Medical History History of steroid therapy Anemia Back pain Gastric reflux Non-smoker COVID Mononucleosis Depression Surgical History Hx of tonsillectomy H/O wisdom tooth extraction Family History (Updated 06/19/25 @ 09:19 by JOSIE Sosa) Mother Hyperlipidemia Endometriosis Father Heart disease Hypertension Grandmother Breast cancer Grandmother Diabetes Aunt Diabetes Social History adopted: No household members: significant other and family number of children: 0 current occupational status: employed 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 pets and animals: Yes (3) pets and animals: cat(s) sexually active: Yes Smoking Status: Never smoker Tobacco: How many years used: 1 how long ago did patient quit smokin alcohol intake: never substance use type: does not use caffeine: Yes (1) Type: coffee what type of physical activity do you participate in: walking frequency: daily seatbelt use: always do you feel safe at home: Yes History 0 Elective abortions Hx Para Spontaneous abortions Hx # Term Pregnancies Ectopic pregnancies Hx # Pregnancies Multiple births # of living children HPI Encounter for routine gynecological examination Details: EDISON PUENTE is a 25 year old who presents for annual exam. She is here to establish care; has Kyleena in place--placed 2020. She had this placed due to extremely heavy periods. She had an ultrasound completed in [place] and was told she had adenomyosis. She reports for the last year she has noticed irregular bleeding; she will have instances of 3 day bleeds then stops and restarts soon after. She is sexually active. She reports no concerns for std's; 1 partner. Last PAP: 2021; normal per pt. History of abnormal PAP: no Last mammogram: age 41 History of abnormal mammogram: n/a Colon cancer screening: age 46--follows with Dr. Alarcon for gastro. Other preventative health care screenings: Dr. Newsome; PCP Female Reproductive History Last Menstrual Period: 06/16/25 Questions: metrorrhagia: No, sexually active: Yes, dyspareunia: No and PCB: No ROS Const Constitutional: Denies chills, fatigue, fever(s), headache(s) or weight loss Eyes Eyes: Denies change in vision ENT ENT: Denies dizziness Cardio Card: Denies chest pain at rest or palpitations Resp Resp: Denies cough or dyspnea GI GI: Denies abdominal pain, constipation or nausea : Denies difficulty voiding, dysuria, hematuria, nipple discharge, pelvic pain, prolapse symptoms, urinary incontinence, vaginal discharge, vaginal dryness, vaginal odor or vaginal pruritus Skin Skin/Breast: Denies alopecia, rash, breast mass, breast pain, breast skin changes or nipple discharge Neuro Neuro: Denies dizziness Psych Psych: Denies anxiety or depression Endo Endo: Denies cold intolerance, excessive sweating or heat intolerance Exam Const General: cooperative, healthy appearing, comfortable, no acute distress, well groomed and well hydrated Nutritional Appearance: well nourished Orientation: alert, awake and oriented x3 HENMT Head: normal to inspection and normocephalic Ears: hearing grossly normal bilaterally and external ears normal Nose: external nose normal Face and sinus: normal facial exam Eyes General: appearance normal, both eyes and all related structures Neck Neck: normal visual inspection, full ROM and no lymphadenopathy Thyroid: thyroid normal (more content not included)... Normal [facility] EGD Reporton 06-16-2025 EGD Report [facility] Medical Records Department [address] [place] [address] EGD Report MR#: [id number] Acct: [id number] Name: EDISON PUENTE Rep #: [id number] : 2000 25 From: Mike Alarcon DO PCP: Dr. Melissa Newsome MD Status:[facility] Patient Name: Edison Puente Procedure Date: 06/16/2025 11:59 AM Date of : 2000 Age: 25 Procedure: Upper GI endoscopy Indications: Epigastric abdominal pain, Functional Dyspepsia, Indigestion, Heartburn Providers: Mike Alarcon DO Referring MD: Melissa Newsome Md Medicines: Monitored Anesthesia Care Patient Profile: This is a 25 year old female. Refer to note in patient chart for documentation of history and physical. Patient has symptoms of acute epigastric abdominal pain. Complications: No immediate complications. Procedure: Pre-Anesthesia Assessment: - Prior to the procedure, a History and Physical was performed, and patient medications and allergies were reviewed. The patient is competent. The risks and benefits of the procedure and the sedation options and risks were discussed with the patient. All questions were answered and informed consent was obtained. Patient identification and proposed procedure were verified by the physician in the pre-procedure area. Mental Status Examination: alert and oriented. Airway Examination: normal oropharyngeal airway and neck mobility. Respiratory Examination: clear to auscultation. CV Examination: normal. Prophylactic Antibiotics: The patient does not require prophylactic antibiotics. Prior Anticoagulants: The patient has taken no anticoagulant or antiplatelet agents except for NSAID medication. ASA Grade Assessment: II - A patient with mild systemic disease. After reviewing the risks and benefits, the patient was deemed in satisfactory condition to undergo the procedure. The anesthesia plan was to use monitored anesthesia care (MAC). Immediately prior to administration of medications, the patient was re-assessed for adequacy to receive sedatives. The heart rate, respiratory rate, oxygen saturations, blood pressure, adequacy of pulmonary ventilation, and response to care were monitored throughout the procedure. The physical status of the patient was re-assessed after the procedure. After obtaining informed consent, the endoscope was passed under direct vision. Throughout the procedure, the patient's blood pressure, pulse, and oxygen saturations were monitored continuously. The Endoscope was introduced through the mouth, and advanced to the third part of the duodenum. Small bowel enteroscopy was deemed necessary. The upper GI endoscopy was accomplished without difficulty. The patient tolerated the procedure well. Scope In: 12:07:03 PM Scope Out: 12:11:51 PM Total Procedure Duration Time 0 hours 4 minutes 48 seconds Findings: The Z-line was irregular and was found 39 cm from the incisors. Biopsies were taken with a cold forceps for histology. Verification of patient identification for the specimen was done. Estimated blood loss was minimal. Patchy mildly erythematous mucosa without bleeding was found in the gastric body. Biopsies were taken with a cold forceps for histology. Verification of patient identification for the specimen was done. Estimated blood loss was minimal. Biopsies were taken with a cold forceps for Helicobacter pylori testing. Verification of patient identification for the specimen was done. Estimated blood loss was minimal. Patchy mildly erythematous mucosa without active bleeding and with no stigmata of bleeding was found in the entire duodenum. Biopsies were taken with a cold forceps for histology. Verification of patient identification for the specimen was done. Estimated blood loss was minimal. Impression: - Z-line irregular, 39 cm from the incisors. Biopsied. - Erythematous mucosa in the gastric body. Biopsied. - Erythematous duodenopathy. Biopsied. Recommendation: - Discharge patient to home. - Resume previous diet. - Continue present medications. Procedure Code(s): --- Professional --- 57614, Small intestinal endoscopy, enteroscopy beyond second portion of duodenum, not including ileum; with biopsy, single or multiple CPT copyright 2021 [employer]. All rights reserved. The codes documented in this report are preliminary and upon green end department supervisor review may be revised to meet current compliance requirements. Mike Alarcon DO 06/16/2025 12:17:43 PM This report has been signed electronically. Number of Addenda: 0 Note Initiated On: 06/16/2025 11:59 AM 06/16/25 1217 Date Mike Gomez Signature: Date (if indicated) CC: Dr. Melissa Newsome MD; Mike Alarcon DO D (more content not included)... [facility] Medical Records Department [address] [place], [place] [address] [place] [address] Physician Letter MR#: [id number] Acct: [id number] Name: EDISON PUENTE Rep #: [id number] : 2000 25 From: Mike Alarcon DO PCP: Dr. Melissa Newsome MD Status:[facility] 06/16/2025 Melissa Newsome Md Re : Upper GI endoscopy procedure for Edison Puente Dear Jerod This procedure was performed on Monday, June 16, 2025. My impressions and recommendations are as follows: Impressions : - Z-line irregular, 39 cm from the incisors. Biopsied. - Erythematous mucosa in the gastric body. Biopsied. - Erythematous duodenopathy. Biopsied. Recommendations : - Discharge patient to home. - Resume previous diet. - Continue present medications. My findings are described in the full procedure note, which is enclosed. If I can be of further assistance, please feel free to contact me at . Sincerely, Mike Alarcon DO 06/16/2025 12:17:43 PM This report has been signed electronically. 06/16/25 1218 Date Mike Gomez Signature: Date (if indicated) CC: Dr. Melissa Newsome MD; Mike Alarcon DO Date Dictated: 06/16/25 1159 Date Transcribed: Airline Stewardess: RAMEZ Signed [facility] MR/POSTOP.ANEon 06-16-2025 MR/POSTOP.[facility] Medical Records Department [address] [place] [address] Anesthesia Postop Eval I 06/16/25 1231 MR#: [id number] Acct: [id number] Name: EDISON PUENTE Rep #: [id number] : 2000 25 From: Kyle Phillips PCP: Dr. Melissa Newsome MD Status:REG [facility] Race: C Location: [place] [address] Anesthesia: Postop Eval I Current Vital Signs Temperature: 97.9 F Pulse Rate: 61 Blood Pressure: 89/53 Respiratory Rate: 16 Pulse Ox: 97 Oxygen Delivery Method: Room Air Assessment Airway patent: Yes Spontaneous unlabored respirations: Yes Mental status: Asleep nausea: No Vomiting: No Anesthesia Complication: No Fluid Hydration Crystalloid volume administer (ml): 400 Total IV fluid infused: 400 Progress Note Anesthesia document: Postop Eval 1 completed: Yes 06/16/25 1232 Date Kyle Claros Signature: Date CC: Signed [facility] MR/TCDLRFUX0lb 06-16-2025 MR/POSTOPAN2 [facility] Medical Records Department [address] [place] [address] Anesthesia Postop Eval II 06/16/25 1304 MR#: [id number] Acct: [id number] Name: EDISON PUENTE Rep #: [id number] : 2000 25 From: Everrado Hernandez MD PCP: Dr. Melissa Newsome MD Status:REG [facility] Y Race: C Location: [place] [address] Anesthesia Postop Eval I Sum Postop Eval Completion status Anesthesia document: Postop Eval 1 completed: Yes Anesthesia Postop Eval I Summary Anesthesia Postop Eval I Summary: Anesthesia Postop Eval I: Assessment Summary Airway patent Yes 06/16/25 12:32 [email or web address] Spontaneous unlabored Yes 06/16/25 12:32 [email or web address] respirations Mental status Asleep 06/16/25 12:32 [email or web address] nausea No 06/16/25 12:32 [email or web address] Vomiting No 06/16/25 12:32 [email or web address] Anesthesia Postop Eval I: Fluid Summary Crystalloid volume administer 400 06/16/25 12:32 [email or web address] (ml) Colloids volume administered ( ml) Blood Product volume administered (ml) Total IV fluid infused 400 06/16/25 12:32 [email or web address] Anesthesia Postop Eval I: Summary Notes Anesthesia Complication No 06/16/25 12:32 [email or web address] Anesthesia Complication Comment: Post-operative progress note Anesthesia: Postop Eval II Evaluation Mental status: Awake Pain Level: 0 nausea: No Vomiting: No 06/16/25 1304 Date Everardo Hernandez MD Cosign Signature: Date CC: Signed Normal [facility] ,Urineon 06-16-2025 Beta HCG ( test) Ql (U) Negative Normal [facility] Comment on above: Result Comment: Very dilute urine specimens, as indicated by a low specific gravity, may not contain solar sales representative levels of hCG. If is still suspected, a first morning urine specimen should be collected 48 hours later and tested. Performed By: #### L 400.7600 #### [facility] [address] [place], [address] Surgery Specimen Level [place] 06-16-2025 Surgery Specimen Level IV Patient Age/Sex Location Account Attending Physician EDISON PUENTE EN [id number] Mike Alarcon DO Specimen: [id number] Received: 06/16/25-1349 Status: [facility] [place] Num: [id number] Spec Type: EGD BIOPSY Subm Dr: Mike Friend, DO HEADER OPERATION: EGD PRE-OP DIAGNOSIS: Epigastric pain, nausea, left lower quadrant pain, abdominal cramping TISSUE SUBMITTED: A- Duodenum biopsy, B- Gastric body biopsy, C- Distal esophagus biopsy MICROSCOPIC DIAGNOSIS A. Duodenum, biopsy: * Normal villous architecture with Bradley gland hyperplasia. * Negative for increased intraepithelial lymphocytes. B. Gastric body, biopsy: * Antral and oxyntic mucosa with features of reactive gastropathy - see note. * Negative for Helicobacter-like organisms (H E). Note: A fragment of small intestinal mucosa is also noted, favor carryover from part A. Recommend clinical/endoscopic correlation. C. Distal esophagus, biopsy: * Columnar mucosa negative for goblet cell metaplasia. * Focal scant benign squamous mucosa. MICROSCOPIC DESCRIPTION Slides are reviewed. GROSS DESCRIPTION A. Received in fixative is one container labeled with the patient's name and designated Duodenum biopsy. The specimen consists of two irregular fragments of cameron tissue that measure 0.4 and 0.6 cm. The specimen is totally submitted in one cassette. B. Received in fixative is one container labeled with the patient's name and designated Gastric body biopsy. The specimen consists of three irregular fragments of cameron tissue that measure <0.1 to 0.4 cm. Smallest fragment may not survive processing. The specimen is totally submitted in one cassette. C. Received in fixative is one container labeled with the patient's name and designated Distal esophagus biopsy. The specimen consists of two irregular fragments of cameron tissue, each measuring 0.4 cm. The specimen is totally submitted in one cassette. [place] 06/16/2025 CPT:03307w9 Patient Age/Sex Location Account Attending Physician EDISON PUENTE EN [id number] Mike Alarcon, DO Signed (signatur e on file) Dr. Marie Joshi MD 06/26/251120 Normal [facility] Comment on above: Performed By: #### P SUIV #### [facility] [address] [facility] [place], [address] Urine testOrdered By: Cuco Sanford on 06-16-2025 HCG ( test) Ql (U) Negative [facility] Comment on above: Very dilute urine sp ecimens, as indicated by a low specificgravity, may not contain solar sales representative levels of hCG. If is still suspected, a first morning urinespecimen should be collected 48 hours later and tested. Abdomen Limitedon 06-02-2025 Abdomen Limited [facility] Imaging Services [address] [place] [address] Abdomen Limited MR#: [id number] Acct: [id number] Name: EDISON PUENTE IRVING Rep #: [id number] : 2000 F 25 From: Arturo Simon MD PCP: Dr. Melissa Newsome MD Status: REG CLI Study: Abdomen Limited Date of Exam: 06/02/25 Exam# [id number] Ordering Dr: Mary Chauhan PROCEDURE: ABDOMEN LIMITED 06/02/2025 REASON FOR EXAM: EPIGASTRIC PAIN, BLOATING TECHNIQUE: Procedure Code: USABDL Modality: US Procedure: ABDOMEN LIMITED COMPARISON: None FINDINGS: Liver: Fatty infiltration of the liver is noted without a discrete lesion. No intrahepatic biliary dilatation, liver measures 14.9 cm Gallbladder: No stones, sludge, wall thickening or tenderness. Wall measures 1.9 mm, no pericholecystic fluid Common bile duct: Normal measuring 2.6 mm. Pancreas: Normal Kidneys: The right kidney measures 10.7 cm. No hydronephrosis, calculi or mass US/Abdomen Limited IMPRESSION: Fatty liver, no discrete lesion, otherwise unremarkable abdominal sonogram Reading Location: [facility] CC: JOSIE Chauhan; Dr. Melissa Newsome MD Airline Stewardess: Signed Normal [facility] Gastroenterology Visit Repor ton 05-19-2025 Gastroenterology Visit Report [facility] Gastroenterology [address] [place] [address] OFFICE VISIT Date of Service: 05/19/25 MR#: [id number] Acct: [id number] Name: EDISON PUENTE Rep #: [id number] : 2000 Provider: JOSIE olguin Age/Sex: 25/F Location: [facility] Status: Signed Intake Vital Signs 04/28/25 15:14 05/19/25 15:00 Height 5 ft 4 in 5 ft 4 in Weight: 103 lb 4 oz 103 lb 4 oz BMI 17.7 17.7 BP 106/69 107/72 Respiration 14 16 Pulse 76 82 Temp 99.0 F 97.7 F L Temp Source Temporal Temporal Pulse Oximetry (%) 98 98 Oxygen Delivery Method room air room air Intake Visit Reasons: 3 week FU Chief Complaint: 3 week follow-up Entertainment Dancer Required: No Accompanied by: Self Is patient in pain?: No Allergies No Known Allergies Allergy (Verified 04/28/25 15:09) Medications ???Medication ???Instructions ???Recorded ???Confirmed ???Type multivitamin 1 tab PO QAM 04/28/25 05/19/25 His tory pantoprazole 40 mg tablet,delayed 40 mg PO QDAY #90 tabs 04/28/25 0 05/19/25 Rx release linaclotide 145 mcg capsule 145 mcg PO QAM #90 caps 05/19/25 0 05/19/25 Rx (Linzess) PFSH Medical History COVID Mononucleosis Depression Surgical History Hx of tonsillectomy H/O wisdom tooth extraction Family History Mother Hyperlipidemia Father Heart disease Hypertension Grandmother Breast cancer Grandmother Diabetes Aunt Diabetes Social History adopted: No household members: significant other and family number of children: 0 current occupational status: employed 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 The patient's clinical presentation suggests potential gastrointestinal pathology such as gastroesophageal reflux disease (GERD) or peptic ulcer disease, especially given the report of black stools indicative of possible upper gastrointestinal bleeding. Further complications may be attributed to a complex interplay of factors including dietary allergies, previous ovarian cysts, and underlying adenomyosis. Suspected constipation and overflow diarrhea may contribute to her current symptomatology due to fecal retention observed in prior imaging. CBC today H. pylori stool Pantoprazole 40mg once daily - Begin pantoprazole only after completing stool test. - Follow dietary restrictions for identified food allergies. - Drink plenty of fluids to help with bowel regularity. - Collect stool sample as per provided instructions and call [employer] for collection. - Schedule follow-up appointment in three weeks to review test results and progress. - Visit the lab today for blood work and contact us if you have any concerns or questions. - Address any unusual symptoms, such as continued black stools or increased pain, with immediate medical consultation. Please advise patient stool testing is negative for acute infection and calprotectin is normal. Stool was positive for Enterotoxigenic Escherichia coli (ETEC); however, this is not something that we treat unless patient are experiencing severe watery diarrhea. This is likely colonized with calprotectin being normal. 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 Normal [facility] Absolute lymphocyte countOrd ered By: Mary Chauhan on 04-28-2025 Lymphocytes Auto (Unsp spec) [#/Vol] 1.86 10*3/uL 0.83-4.51 [facility] Absolute neutrophil countOrd ered By: Mary Chauhan on 04-28-2025 Neutrophils (Bld) [#/Vol] 3.6 10*3/uL 2.0-7.7 [facility] Automated blood erythrocyte countOrdered By: Mary Chauhan on 04-28-2025 RBC (Bld) [#/Vol] 4.68 10*6/uL Normal 4.2-5.[address] [facility] Comment on above: Performed By: #### L 100.0100 #### [facility] [address] [place], [address] Automated blood hematocrit ( percentage)Ordered By: Mary Chauhan on 04-28-2025 Hematocrit (Bld) [Volume fraction] 41.3 % Normal 37-47 [facility] Comment on above: Performed By: #### L 100.0100 #### [facility] [address] [place], [address] Automated lymphocyte count a s percentage of total leukocytesOrdered By: Mary Chauhan on 04-28-2025 Lymphocytes/100 WBC Auto (Unsp spec) 30.2 % 19-41 [facility] Basophil percentageOrdered B y: Mary Chauhan on 04-28-2025 Basophils/100 WBC (Bld) 0.5 % Normal 0-1 [facility] Comment on above: Performed By: #### L 100.0100 #### [facility] [address] [place], [address] CBC W/Diff, Automatedon 08-0 Absolute Lymph 1.86 X10 3/uL Normal 0.83-4.51 [facility] Comment on above: Performed By: #### L 100.0100 #### [facility] [address] [place], [address] Absolute Neut 3.6 X10 3/uL Normal 2.0-7.7 [facility] Comment on above: Performed By: #### L 100.0100 #### [facility] [address] [place], [address] IG% 0.200 Normal 0.0-0.9 [facility] Comment on above: Result Comment: IG% - Immature Granulocytes (promyelocytes, myelocytes and metamyelocytes) > 1% indicates that a LEFT SHIFT is Present. Performed By: #### L 100.0100 #### [facility] [address] [place], [address] Lymphocytes/100 WBC (Bld) 30.2 % Normal 19-41 [facility] Comment on above: Performed By: #### L 100.0100 #### [facility] [address] [place], [address] Nucleated RBC (Bld) [#/Vol] 0 10*3/uL Normal 0-5 [facility] Comment on above: Performed By: #### L 100.0100 #### [facility] [address] [place], [address] RDW SD 38.2 fl Normal 35.1-43.9 [facility] Comment on above: Performed By: #### L 100.0100 #### [facility] [address] [place], [address] Eosinophil percentageOrdered By: Mary Chauhan on 04-28-2025 Eosinophils/100 WBC (Bld) 3.6 % Normal 0-5 [facility] Comment on above: Performed By: #### L 100.0100 #### [facility] [address] [place], [address] Erythrocyte distribution wid th ratioOrdered By: Mary Chauhan on 04-28-2025 Erythrocyte distribution width (RBC) [Ratio] 11.9 % Normal 11.6-14.6 [facility] Comment on above: Performed By: #### L 100.0100 #### [facility] [address] [place], [address] Erythrocyte distribution wid th standard deviationOrdered By: Mary Chauhan on 04-28-2025 Erythrocyte distribution width (RBC) [Ratio] 38.2 fl 35.1-43.9 [facility] Gastroenterology Visit Repor ton 04-28-2025 Gastroenterology Visit Report [facility]astroenter[facility] [address] [place] [address] OFFICE VISIT Date of Service: 04/28/25 MR#: [id number] Acct: [id number] Name: EDISON PUENTE Rep #: [id number] : 2000 Provider: JOSIE olguin Age/Sex: 25/F Location: [facility] Status: Signed Intake Vital Signs 03/10/25 11:14 04/28/25 15:14 Height 5 ft 5 in 5 ft 4 in Weight: 104 lb 103 lb 4 oz BMI 17.3 17.7 BP 106/54 L 106/69 Blood Pressure Location Lt brachial Position Sitting Respiration 14 14 Pulse 66 76 Pulse Source Monitor Temp 97.2 F L 99.0 F Temp Source Temporal Temporal Pulse Oximetry (%) 99 98 Oxygen Delivery Method room air room air Intake Visit Reasons: Abdominal pain Chief Complaint: pain Entertainment Dancer Required: No Accompanied by: Self Is patient in pain?: Yes Allergies No Known Allergies Allergy (Verified 04/28/25 15:09) Medications ???Medication ???Instructions ???Recorded ???Confirmed ???Type multivitamin 1 tab PO QAM 04/28/25 04/28/25 His tory pantoprazole 40 mg tablet,delayed 40 mg PO QDAY #90 tabs 04/28/25 0 04/28/25 Rx release PFSH Medical History (Updated 04/28/25 @ 15:45 by JOSIE Leon) COVID Mononucleosis Depression Surgical History (Updated 03/10/25 @ 11:08 by Cristiana Gannon MA) Hx of tonsillectomy H/O wisdom tooth extraction Family History (Updated 03/10/25 @ 11:[address] Melissa Newsome MD) Mother Hyperlipidemia Father Heart disease Hypertension Grandmother Breast cancer Grandmother Diabetes Aunt Diabetes Social History (Updated 03/10/25 @ 11:[address] 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 pets and animals: Yes (3) pets and animals: cat(s) sexually active: Yes Smoking Status: Former smoker quit date: 12/24/24 Tobacco: How many years used: 1 how long ago did patient quit smokin alcohol intake: never substance use type: does not use caffeine: Yes (1) Type: coffee what type of physical activity do you participate in: walking frequency: daily do you feel safe at home: Yes HPI HPI Chief Complaint: pain Details: EDISON PUENTE, is a 25 F who presents to the office today for - abdominal pain, nausea, vomiting - alternating constipation and diarrhea - the past 2 weeks vomiting daily, usually just bile, can be before or after meals - rare emesis of food - reports she was in ER 2 months ago in [place] due to severe abdominal pain - states this was an ovarian cyst RLQ - LLQ pain has been ongoing for a long time - pain is a severe cramping, doubled over, dizziness - pain can wake her up in the middle of the night or happen during the day - mom with h/o CCX at 22y/o - pain is epigastric - LLQ pain worse this past week and currently on her menstrual cycle - has appt in May to establish with CEILING INSTALLER - reports having black stool this past Monday, liquid soft - heartburn - does not taking anything - epigastric burning that radiates down her right arm - denies any significant health history - has an IUD - denies any marijuana use - denies any illicit drugs - denies any smoking or alcohol ROS Const Constitutional: Positive for fatigue, fever(s), headache(s) and weight change (loss) ENT ENT: Positive for headache(s); No difficulty swallowing Gastro GI: Positive for abdominal pain, bloating, change in bowel habits, constipation, diarrhea, heartburn, Blood in stool, nausea/dyspepsia and vomiting; No belching, change in stool character, coffee ground emesis, cramping, difficulty swallowing, feeling full early, excessive flatus, incontinent of stools, Vomiting blood/hematemesis, loose stools, Black,tarry stools, pain with swallowing or other Musc Musculoskeletal: Positive for muscle cramps and muscle weakness Skin Skin: Positive for rash; No yellowing of the eye or itchy eyes Neuro Neurology: Positive for dizziness and headache(s) Psych Psychiatric: Positive for anxiety and Positive for depression Endo Endocrine: Positive for fatigue and weight change (loss) Aller/Imm Allergy/Immunologic : No itchy eyes Christiano/Lymp Hematologic/Lymphat ic: No easy bleeding or easy bruising Exam Const General: cooperative, healthy appearing, no acute distress and well developed Nutritional Appearance: average body habitus and well nourished Orientation: alert and oriented x3 HENMT Head: normocephalic Ears: hearing grossly normal bilaterally Mouth: moist mucous membranes Teeth and gingiva: dentition normal Eyes Conjunctivae: conjunctivae normal Sclera: sclerae normal Neck Neck: normal visual inspection, full ROM and trache (more content not included)... Normal [facility] Hemoglobin measurementOrdere d By: Mary Chauhan on 04-28-2025 Hemoglobin (Bld) [Mass/Vol] 14.1 g/dL Normal 12.0-15.0 [facility] Comment on above: Performed By: #### L 100.0100 #### [facility] [address] [place], [address] Immature granulocytes/100 WB C Auto (Bld)Ordered By: Mary Chauhan on 04-28-2025 Immature granulocytes/100 WBC (Bld) 0.200 % 0.0-0.9 [facility] Comment on above: IG% - Immature Granu locytes (promyelocytes, myelocytes and metamyelocytes) > 1% indicates that a LEFT SHIFT is Present. MCV (mean corpuscular volume ) determinationOrdered By: Mary Chauhan on 04-28-2025 MCV (RBC) [Entitic vol] 88.2 fL Normal 81-99 [facility] Comment on above: Performed By: #### L 100.0100 #### [facility] [address] [facility] [place], [address] Mean corpuscular hemoglobin (MCH) determinationOrdered By: Mary Chauhan on 04-28-2025 MCH (RBC) [Entitic mass] 30.1 pg Normal 27.0-32.0 [facility] Comment on above: Performed By: #### L 100.0100 #### [facility] [address] [place], [address] Mean corpuscular hemoglobin concentration (MCHC) determinationOrdered By: Mary Chauhan on 04-28-2025 MCHC (RBC) [Mass/Vol] 34.1 g/dL Normal 32-36 [facility] Comment on above: Performed By: #### L 100.0100 #### [facility] [address] [place], [address] Mean platelet volume determi nationOrdered By: Mary Chauhan on 04-28-2025 Platelet mean volume (Bld) [Entitic vol] 9.5 fL Normal 6.2-12.0 [facility] Comment on above: Performed By: #### L 100.0100 #### [facility] [address] [place], [address] Monocyte percentageOrdered B y: Mary Chauhan on 04-28-2025 Monocytes/100 WBC (Bld) 6.5 % Normal 0-10 [facility] Comment on above: Performed By: #### L 100.0100 #### [facility] [address] [place], [address] Neutrophil percentageOrdered By: Mary Chauhan on 04-28-2025 Neutrophils/100 WBC (Bld) 59.0 % Normal 47-70 [facility] Comment on above: Performed By: #### L 100.0100 #### [facility] [address] [place], [address] Nucleated red blood cell per centageOrdered By: Mary Chauhan on 04-28-2025 Nucleated RBC/100 WBC (Bld) [Ratio] 0 % 0-5 [facility] Platelet countOrdered By: Pee Chauhan on 04-28-2025 Platelets (Bld) [#/Vol] 311 10*3/uL Normal 150-450 [facility] Comment on above: Performed By: #### L 100.0100 #### [facility] [address] [place], [address] White blood cell (WBC) count Ordered By: Mary Chauhan on 04-28-2025 WBC (Bld) [#/Vol] 6.2 10*3/uL Normal 4.4-11.0 [facility] Comment on above: Performed By: #### L 100.0100 #### [facility] [address] [place], [address] DANNIE Comprehensive Panelon ANTI-DNA (DS)AB <1 Normal 0-9 [facility] Comment on above: Result Comment: Nega tive <5 Equivocal 5 - 9 Positive >9 Performed By: #### L 7400.0353 #### [facility] [address] [place], [address] ANTI-SS-A < 0.2 Normal 0.0-0.9 [facility] Comment on above: Performed By: #### L 7400.0353 #### [facility] [address] [place], [address] ANTI-SS-B < 0.2 Normal 0.0-0.9 [facility] Comment on above: Performed By: #### L 7400.0353 #### [facility] [address] [place], [address] ANTINUCLEAR ANTIBODIES DIREC Ton 03-14-2025 DANNIE,DIRECT Negative Normal Negative [facility] Comment on above: Result Comment: Perf ormed at: - [facility] [address] [id number] Photocomposition Keyboard Operator: Chano Calvo PhD, Phone: [phone] Performed at: - [facility] [id number] Photocomposition Keyboard Operator: Ru Briseno MD, Phone: [phone] Performed By: #### L 010.3545 #### [facility] [address] [place], [address] [id number] 03-14-2025 BEEF 0.34 kU/L Abnormal Class I [facility] Comment on above: Performed By: #### L 650.0677 #### [facility] [address] [place], [place], [address] CHOCOLATE <0.10 Normal Class 0 [facility] Comment on above: Performed By: #### L 400.7600 #### [facility] [address] [place], [address] CODFISH <0.10 Normal Class 0 [facility] Comment on above: Performed By: #### L 400.7600 #### [facility] [address] [place], [address] COMMENT Comment Normal . [facility] Comment on above: Result Comment: Krystyna escobedo of Specific IgE Class Description of Class ----- < 0.10 0 Negative 0.10 - 0.31 0/I Equivocal/Low 0.32 - 0.55 I Low 0.56 - 1.40 II Moderate 1.41 - 3.90 III High 3.91 - 19.00 IV Very High 19.01 - 100.00 V Very High >100.00 Very High Performed By: #### L 400.7600 #### [facility] [address] [place], [address] CORN <0.10 Normal Class 0 [facility] Comment on above: Performed By: #### L 400.7600 #### [facility] [address] [place], [address] EGG, WHOLE <0.10 Normal Class 0 [facility] Comment on above: Performed By: #### L 400.7600 #### [facility] [address] [place], [address] MILK (COW) 0.72 kU/L Abnormal Class II [facility] Comment on above: Performed By: #### L 400.7600 #### [facility] [address] [place], [address] MUSSELS <0.10 Normal Class 0 [facility] Comment on above: Performed By: #### L 400.7600 #### [facility] [address] [place], [address] PEANUT <0.10 Normal Class 0 [facility] Comment on above: Performed By: #### L 400.7600 #### [facility] [address] [place], [address] PORK <0.10 Normal Class 0 [facility] Comment on above: Performed By: #### L 400.7600 #### [facility] [address] [place], [address] SALMON <0.10 Normal Class 0 [facility] Comment on above: Performed By: #### L 400.7600 #### [facility] [address] [place], [address] SHRIMP <0.10 Normal Class 0 [facility] Comment on above: Performed By: #### L 400.7600 #### [facility] [address] [place], [address] SOYBEAN <0.10 Normal Class 0 [facility] Comment on above: Performed By: #### L 400.7600 #### [facility] [address] [place], [address] TUNA <0.10 Normal Class 0 [facility] Comment on above: Performed By: #### L 400.7600 #### [facility] [address] [place], [address] WHEAT <0.10 Normal Class 0 [facility] Comment on above: Performed By: #### L 400.7600 #### [facility] [address] [place], [address] Celiac Disease Profileon ENDOMYSIAL IGA Negative Normal Negative [facility] Comment on above: Performed By: #### L 400.7600 #### [facility] [address] [place], [place], [id number] IMMUNOGLOB A QN 104 mg/dL Normal 87-352 [facility] Comment on above: Result Comment: Perf ormed at: [facility] [id number] Photocomposition Keyboard Operator: Chano Calvo PhD, Phone: [phone] Performed By: #### L 400.7600 #### [facility] [address] [place], [place], [id number] tTG IGA <2 Normal 0-3 [facility] Comment on above: Result Comment: Nega tive 0 - 3 Weak Positive 4 - 10 Positive >10 Tissue Transglutaminase (tTG) has been identified as the endomysial antigen. Studies have demonstr- ated that endomysial IgA antibodies have over 99% specificity for gluten sensitive enteropathy. Performed By: #### L 400.7600 #### [facility] [address] [place], [place], [id number] Bacteria Ur Culton 5 Bacteria identified Cx Nom (U) ORGANISM ID: 1 <10,000 CFU/ml Mixed microbiota Insignificant colony count. No further workup. Normal [facility] Comment on above: Performed By: #### 6 30-4 #### [facility] CLIA [id number] [address] [place] [address] [place] CNOVon 03-11-2025 CNOV Office Visit (UCWSTR) ---- EDISON PUENTE ([id number]) 2 F Date Time Provider Department 03/11/25 6:30 PM PATIENCE HUANGELIA RODRIGUEZ During your visit today, we recorded the following information about you: Temperature Pulse Respiration Blood pressure 98.4 degrees 86/minute 16/minute 106/62 Weight 47.9 kg Fabiola Huang APRN.LEARNING CENTER INSTRUCTOR 03/11/2025 7:03 PM Signed [facility] Subjective HPI HPI Edison Puente is a 25 year old female who presents today for CC of painful urination, abd discomfort, back discomfort. This started 1 day ago, improving. Has tried otc medication for relief. Symptoms are worsened by moving torso. Risk factors had ruptured cyst on ovary last month, went to ER/imaging performed. . Declines concerns for std and . .Patient presents with: Urinary Problem: urinated 1 time today, low back and pelvic pain x 1 day No past medical history on file. No past surgical history on file. ALLERGIES Patient has no known allergies. MEDICATIONS levonorgestrel (KYLEENA) 17.5 mcg/24 hrs (5 yrs) 19.5 mg IUD Take by intrauterine route. No family history on file. Social History Tobacco Use Smoking status: Never Smokeless tobacco: Never Review of Systems Constitutional: Negative for fever. Cardiovascular: Negative for chest pain. Gastrointestinal: Positive for abdominal pain. Negative for constipation, diarrhea, nausea and vomiting. Genitourinary: Positive for dysuria. Negative for flank pain, frequency and urgency. Musculoskeletal: Positive for back pain. Objective BP 106/62 Pulse 86 Temp 36.9 ?C (98.4 ?F) Resp 16 Wt 47.9 kg (105 lb 9.6 oz) LMP 08/18/2021 SpO2 98% Physical Exam Constitutional: General: She is not in acute distress. Appearance: Normal appearance. She is not toxic-appearing. Cardiovascular: Rate and Rhythm: Normal rate and regular rhythm. Heart sounds: Normal heart sounds. Pulmonary: Effort: Pulmonary effort is normal. Breath sounds: Normal breath sounds. Abdominal: General: Bowel sounds are normal. Palpations: Abdomen is soft. Tenderness: There is abdominal tenderness (vague, mild) in the right lower quadrant. There is right CVA tenderness (vague, mild). There is no left CVA tenderness. Comments: Negative chandelier sign Skin: General: Skin is warm and dry. {ASSESSMENT/PLAN: 1. Acute midline low back pain without sciatica - ICD9: 724.2, ICD10: M54.50 (primary diagnosis) Possibly improving msk pain Will send urine culture, treat per results - UA DIP, URINE (POC) - BACTERIAL CULTURE, URINE 2. Pelvic pain - ICD9: [id number], ICD10: R10.2 Ua negative Declines std testing No treatment today, treat per results Go to ER for worsening s/s - UA DIP, URINE (POC) - BACTERIAL CULTURE, URINE Fabiola Huang APRN.LEARNING CENTER INSTRUCTOR History and Record Review External record(s) reviewed: prior outpatient record. Disposition The patient was discharged. OTC Medications were advised: Procedures Allergies As of Date: 03/11/2025 (No Known Allergies) Date Reviewed: 03/11/2025 Reviewed by: Nanci Sheikh MA - Fully Assessed Reason for Visit: Urinary Problem [252] Cmt: urinated 1 time today, low back and pelvic pain x 1 day Primary Visit Diagnosis:Acute midline low back pain without sciatica [M54.50] Other Visit Diagnosis:Pelvic pain [R10.2] Order(s):UA DIP, URINE (POC) [0732845] Order #: [id number]. #:[id number] BACTERIAL CULTURE, URINE [SQURCUL] Order #: [id number]. #:[id number] Prescriptions as of 03/11/2025 - levonorgestrel (KYLEENA) 17.5 mcg/24 hrs (5 yrs) 19.5 mg IUD Take by intrauterine route. Problem List As Of Date: 03/11/2025 (None) Encounter Status:Closed by FABIOLA HUANG on 03/11/25 Normal [facility] Metabolic Prof tanvion 03-11-2025 Albumin [Mass/Vol] 5.0 g/dL Normal 3.5-5.0 [facility] Comment on above: Performed By: #### L 7400.0353 #### [facility] [place], [address] Albumin/Globulin [Mass ratio] 1.9 {ratio} Normal 0.9-2.4 [facility] Comment on above: Performed By: #### L 7400.0353 #### [facility] [address] [place], [address] ALK PHOS 59 U/L Normal 35-104 [facility] Comment on above: Performed By: #### L 7400.0353 #### [facility] [address] [place], [address] ALT [Catalytic activity/Vol] 10 U/L Normal <=34 [facility] Comment on above: Performed By: #### L 7400.0353 #### [facility] [address] [place], [address] AST [Catalytic activity/Vol] 16 U/L Normal <=31 [facility] Comment on above: Performed By: #### L 7400.0353 #### [facility] [address] [place], [address] Bilirubin [Mass/Vol] 0.76 mg/dL Normal 0.00-1.[address] [facility] Comment on above: Performed By: #### L 7400.0353 #### [facility] [address] [place], [address] BUN/CRE 15.4 RATIO Normal 10-20 [facility] Comment on above: Performed By: #### L 7400.0353 #### [facility] [address] [place], [address] Calcium [Mass/Vol] 9.8 mg/dL Normal 7.6-11.0 [facility] Comment on above: Performed By: #### L 7400.0353 #### [facility] [address] [place], [address] Chloride [Moles/Vol] 105 mmol/L Normal 98-[address] [facility] Comment on above: Performed By: #### L 7400.0353 #### [facility] [address] [place], [address] CO2 [Moles/Vol] 21.2 mmol/L Normal 21.0-32.0 [facility] Comment on above: Performed By: #### L 7400.0353 #### [facility] [address] [place], [address] Creatinine [Mass/Vol] 0.71 mg/dL Normal 0.70-1.20 [facility] Comment on above: Performed By: #### L 7400.0353 #### [facility] [address] [place], [address] GAP 13 Normal 5-15 [facility] Comment on above: Performed By: #### L 7400.0353 #### [facility] [address] [place], [address] GFR/1.73 sq M.predicted among non-blacks MDRD (S/P/Bld) [Vol rate/Area] 122 mL/min/{1.73_m2} Normal >60 [facility] Comment on above: Result Comment: mL/m in/1.73m2 CKD-EPI Creatinine Equation (2020) Performed By: #### L 7400.0353 #### [facility] [address] [place], [address] Globulin (S) [Mass/Vol] 2.7 g/dL Normal 2.2-4.2 [facility] Comment on above: Performed By: #### L 7400.0353 #### [facility] [address] [place], [address] Glucose [Mass/Vol] 92 mg/dL Normal 70-99 [facility] Comment on above: Performed By: #### L 7400.0353 #### [facility] [address] [place], [address] Potassium [Moles/Vol] 4.0 mmol/L Normal 3.3-5.1 [facility] Comment on above: Performed By: #### L 7400.0353 #### [facility] [address] [place], [address] Sodium [Moles/Vol] 139 mmol/L Normal 133-145 [facility] Comment on above: Performed By: #### L 7400.0353 #### [facility] [address] [place], [address] T PROT 7.6 g/dL Normal 5.9-8.4 [facility] Comment on above: Performed By: #### L 7400.0353 #### [facility] [address] [place], [address] Urea nitrogen [Mass/Vol] 11 mg/dL Normal 4-19 [facility] Comment on above: Performed By: #### L 7400.0353 #### [facility] [address] [place], [address] Thyroid Stim Hormone (TSH)on 03-11-2025 TSH 2.570 uIU/mL Normal 0.300-4.200 [facility] Comment on above: Performed By: #### L 7400.0353 #### [facility] [address] [place], [address] UA DIP, URINE (POC)on 2024 BILIRUBIN UA (POCT) Negative Negative [place] CLARITY UA (POCT) [facility] COLOR UA (POCT) Yellow [facility] GLUCOSE UA (POCT) Negative Negative mg/dL [facility] Hemoglobin Ql (U) Negative Negative [facility] KETONE UA (POCT) Negative Negative mg/dL [facility] LEUKOCYTES UA (POCT) Negative Negative [facility] NITRITE UA (POCT) Negative Negative [facility] PH UA (POCT) 6 4.5 - 8.0 [facility] Protein Ql (U) Negative Negative mg/dL [facility] SPECIFIC GRAVITY UA (POCT) 1.025 1.005 - 1.030 [facility] UROBILINOGEN UA (POCT) 0.2 Normal E.U./d L [facility] Location:[facility], [address] [facility], [place], [address] [facility] C[facility] Vitamin D,25 Hydroxyon 03-11 Vitamin D 25-OH 13.7 ng/mL Low 30-100 [facility] Comment on above: Result Comment: Gauri min D Status Deficiency: <20 ng/mL (50nmol/L) Insufficiency: 20-30 ng/mL (50-75 nmol/L) Sufficiency: 30-100 ng/mL (75-250 nmol/L) Toxicity: >100 ng/mL (>250 nmol/L) Performed By: #### L 7400.0353 #### [facility] [address] [place], [place], [id number] Absolute lymphocyte countOrd ered By: Melissa Newsome on 03-10-2025 Lymphocytes Auto (Unsp spec) [#/Vol] 1.82 10*3/uL 0.83-4.51 [facility] Absolute neutrophil countOrd ered By: Melissa Newsome on 03-10-2025 Neutrophils (Bld) [#/Vol] 3.5 10*3/uL 2.0-7.7 [facility] Anion gap in Serum or Plasma Ordered By: Melissa Newsome on 03-10-2025 Anion gap [Moles/Vol] 13 mmol/L 5-15 [facility] Automated lymphocyte count a s percentage of total leukocytesOrdered By: Melissa Newsome on 03-10-2025 Lymphocytes/100 WBC Auto (Unsp spec) 30.7 % - [facility] BUN/creatinine ratioOrdered By: Melissa Newsome on 03-10-2025 Urea nitrogen/Creatinine [Mass ratio] 15.4 mg/mg 10-20 [facility] Basophil percentageOrdered B y: Melissa Newsome on 03-10-2025 Basophils/100 WBC (Bld) 0.7 % 0-1 [facility] Bilirubin, totalOrdered By: Melissa Newsome on 03-10-2025 Bilirubin [Mass/Vol] 0.76 mg/dL 0.00-1.[address] [facility] CBC W/Diff, Automatedon 02-23 Absolute Lymph 1.82 X10 3/uL Normal 0.83-4.51 [facility] Comment on above: Performed By: #### L 7400.0353 #### [facility] [address] [place], [address] Absolute Neut 3.5 X10 3/uL Normal 2.0-7.7 [facility] Comment on above: Performed By: #### L 7400.0353 #### [facility] [address] [place], [address] Basophils/100 WBC (Bld) 0.7 % Normal 0-1 [facility] Comment on above: Performed By: #### L 7400.0353 #### [facility] [address] [place], [address] Eosinophils/100 WBC (Bld) 4.4 % Normal 0-5 [facility] Comment on above: Performed By: #### L 7400.0353 #### [facility] [address] [place], [address] Erythrocyte distribution width (RBC) [Ratio] 11.9 % Normal 11.6-14.6 [facility] Comment on above: Performed By: #### L 7400.0353 #### [facility] [address] [place], [address] Hematocrit (Bld) [Volume fraction] 41.4 % Normal 37-47 [facility] Comment on above: Performed By: #### L 7400.0353 #### [facility] [address] [place], [address] Hemoglobin (Bld) [Mass/Vol] 14.1 g/dL Normal 12.0-15.0 [facility] Comment on above: Performed By: #### L 7400.0353 #### [facility] [address] [place], [address] IG% 0.300 Normal 0.0-0.9 [facility] Comment on above: Result Comment: IG% - Immature Granulocytes (promyelocytes, myelocytes and metamyelocytes) > 1% indicates that a LEFT SHIFT is Present. Performed By: #### L 7400.0353 #### [facility] [address] [place], [address] Lymphocytes/100 WBC (Bld) 30.7 % Normal 19-41 [facility] Comment on above: Performed By: #### L 7400.0353 #### [facility] [address] [place], [address] MCH (RBC) [Entitic mass] 30.3 pg Normal 27.0-32.0 [facility] Comment on above: Performed By: #### L [id number] #### [facility] [address] [place], [address] MCHC (RBC) [Mass/Vol] 34.1 g/dL Normal 32-36 [facility] Comment on above: Performed By: #### L [id number] #### [facility] [address] [place], [address] MCV (RBC) [Entitic vol] 88.8 fL Normal 81-99 [facility] Comment on above: Performed By: #### L [id number] #### [facility] [address] [place], [address] Monocytes/100 WBC (Bld) 5.7 % Normal 0-10 [facility] Comment on above: Performed By: #### L [id number] #### [facility] [address] [place] [place], [address] Neutrophils/100 WBC (Bld) 58.2 % Normal 47-70 [facility] Comment on above: Performed By: #### L [id number] #### [facility] [address] [place], [address] Nucleated RBC (Bld) [#/Vol] 0 10*3/uL Normal 0-5 [facility] Comment on above: Performed By: #### L [id number] #### [facility] [address] [place], [address] Platelet mean volume (Bld) [Entitic vol] 9.8 fL Normal 6.2-12.0 [facility] Comment on above: Performed By: #### L [id number] #### [facility] [address] [place], [address] Platelets (Bld) [#/Vol] 277 10*3/uL Normal 150-450 [facility] Comment on above: Performed By: #### L [id number] #### [facility] [address] [place], [address] RBC (Bld) [#/Vol] 4.66 10*6/uL Normal 4.2-5.[address] [facility] Comment on above: Performed By: #### L [id number] #### [facility] [address] [place], [address] RDW SD 38.4 fl Normal 35.1-43.9 [facility] Comment on above: Performed By: #### L [id number] #### [facility] [address] [place], [address] WBC (Bld) [#/Vol] 5.9 10*3/uL Normal 4.4-11.0 [facility] Comment on above: Performed By: #### L [id number] #### [facility] [place], [address] Carbon dioxide, total [Moles /volume] in Central venous bloodOrdered By: Melissa Newsome on 03-10-2025 CO2 [Moles/Vol] 21.2 mmol/L 21.0-32.0 [facility] Chloride assayOrdered By: Juarez Newsome on 03-10-2025 Chloride [Moles/Vol] 105 mmol/L 98-[address] [facility] Eosinophil percentageOrdered By: Melissa Newsome on 03-10-2025 Eosinophils/100 WBC (Bld) 4.4 % 0-5 [facility] Erythrocyte distribution wid th ratioOrdered By: Melissa Newsome on 03-10-2025 Erythrocyte distribution width (RBC) [Ratio] 11.9 % 11.6-14.6 [facility] Erythrocyte distribution wid th standard deviationOrdered By: Melissa Newsome on 03-10-2025 Erythrocyte distribution width (RBC) [Ratio] 38.4 fl 35.1-43.9 [facility] Glomerular filtration rate ( GFR) estimation/1.73 sq m using serum, plasma, or whole bOrdered By: Melissa Newsome on 03-10-2025 GFR/1.73 sq M.predicted among non-blacks MDRD (S/P/Bld) [Vol rate/Area] 122 mL/min/{1.73_m2} >60 [facility] Comment on above: mL/min/1.73m2 CKD-EP I Creatinine Equation (2020) Hematocrit Auto (Bld) [Volum e fraction]Ordered By: Melissa Newsome on 03-10-2025 Hematocrit (Bld) [Volume fraction] 41.4 % 37-47 [facility] Hemoglobin measurementOrdere d By: Melissa Newsome on 03-10-2025 Hemoglobin (Bld) [Mass/Vol] 14.1 g/dL 12.0-15.0 [facility] Immature granulocytes/100 WB C Auto (Bld)Ordered By: Melissa Newsome on 03-10-2025 Immature granulocytes/100 WBC (Bld) 0.300 % 0.0-0.9 [facility] Comment on above: IG% - Immature Granu locytes (promyelocytes, myelocytes and metamyelocytes) > 1% indicates that a LEFT SHIFT is Present. Laboratory - Chemistry and C hemistry - challengeOrdered By: Melissa Newsome on 03-10-2025 AST [Catalytic activity/Vol] 16 U/L <32 [facility] - Miscellaneous t estsOrdered By: Melissa Newsome on 03-10-2025 Service comment (Unsp spec) [Interp] Comment . [facility] Comment on above: Levels of Specific I gE Class Description of Class ----- < 0.10 0 Negative 0.10 - 0.31 0/I Equivocal/Low 0.32 - 0.55 I Low 0.56 - 1.40 II Moderate 1.41 - 3.90 III High 3.91 - 19.00 IV Very High 19.01 - 100.00 V Very High >100.00 Very High MCV (mean corpuscular volume ) determinationOrdered By: Melissa Newsome on 03-10-2025 MCV (RBC) [Entitic vol] 88.8 fL 81-99 [facility] Mean corpuscular hemoglobin (MCH) determinationOrdered By: Melissa Newsome on 03-10-2025 MCH (RBC) [Entitic mass] 30.3 pg 27.0-32.0 [facility] Mean corpuscular hemoglobin concentration (MCHC) determinationOrdered By: Melissa Newsome on 03-10-2025 MCHC (RBC) [Mass/Vol] 34.1 g/dL 32-36 [facility] Mean platelet volume determi nationOrdered By: Melissa Newsome on 03-10-2025 Platelet mean volume (Bld) [Entitic vol] 9.8 fL 6.2-12.0 [facility] Monocyte percentageOrdered B y: Melissa Newsome on 03-10-2025 Monocytes/100 WBC (Bld) 5.7 % 0-10 [facility] Neutrophil percentageOrdered By: Melissa Newsome on 03-10-2025 Neutrophils/100 WBC (Bld) 58.2 % 47-70 [facility] Nucleated red blood cell per centageOrdered By: Melissa Newsome on 03-10-2025 Nucleated RBC/100 WBC (Bld) [Ratio] 0 % 0-5 [facility] Platelet countOrdered By: Juarez Newsome on 03-10-2025 Platelets (Bld) [#/Vol] 277 10*3/uL 150-450 [facility] Potassium measurement (mass/ volume)Ordered By: Melissa Newsome on 03-10-2025 Potassium (Unsp spec) [Mass/Vol] 4.0 mmol/L 3.3-5.1 [facility] RBC Auto (Bld) [#/Vol]Ordere d By: Melissa Newsome on 03-10-2025 RBC (Bld) [#/Vol] 4.66 10*6/uL 4.2-5.[address] [facility] Serum DNA double strand anti body assay (units/volume)Ordered By: Melissa Newsome on 03-10-2025 DNA double strand Ab Qn (S) [IU]/mL 0-9 [facility] Comment on above: Negative <5 Equivoca l 5 - 9 Positive >9 Serum Scl-70 antibody assay (units/volume)Ordered By: Melissa Newsome on 03-10-2025 SCL-70 extractable nuclear Ab Qn (S) TNP [facility] Comment on above: Test not performed SCL-70 extractable nuclear Ab Qn (S) <0.2 AI 0.0-0.9 [facility] Comment on above: Previous reported re sult: TNP AIEdited by: EMILIE on 03/14/25:512 AMENDED REPORT 03/14/252306 ANTISCLER previously reported as: Test not performed Serum beef IgE antibody assa y (units/volume)Ordered By: Melissa Newsome on 03-10-2025 Beef IgE Qn (S) 0.34 kU/L High Class I [facility] Serum codfish IgE antibody a ssay (units/volume)Ordered By: Melissa Newsome on 03-10-2025 Codfish IgE Qn (S) <0.10 kU/L Class 0 [facility] Serum corn IgE antibody assa y (units/volume)Ordered By: Melissa Newsome on 03-10-2025 [place] IgE Qn (S) <0.10 kU/L Class 0 [facility] Serum cow milk IgE antibody assay (units/volume)Ordered By: Melissa Newsome on 03-10-2025 Cow milk IgE Qn (S) 0.72 kU/L High Class II [facility] Serum creatinine measurement (mass/volume)Ordered By: Melissa Newsome on 03-10-2025 Creatinine [Mass/Vol] 0.71 mg/dL 0.70-1.20 [facility] Serum globulin measurementOr dered By: Melissa Newsome on 03-10-2025 Globulin (S) [Mass/Vol] 2.7 g/dL 2.2-4.2 [facility] Serum glucose measurement (m ass/volume)Ordered By: Melissa Newsome on 03-10-2025 Glucose [Mass/Vol] 92 mg/dL 70-99 [facility] Serum or plasma IgA measurem ent (mass/volume)Ordered By: Melissa Newsome on 03-10-2025 IgA [Mass/Vol] 104 mg/dL 87-352 [facility] Comment on above: Performed at: [place] [id number] Director: Chano Calvo PhD, Phone: [phone] Serum or plasma alanine pressley otransferase (ALT) measurementOrdered By: Melissa Newsome on 03-10-2025 ALT [Catalytic activity/Vol] 10 U/L <35 [facility] Serum or plasma albumin sharon urement (mass/volume)Ordered By: Melissa Newsome on 03-10-2025 Albumin [Mass/Vol] 5.0 g/dL 3.5-5.0 [facility] Serum or plasma albumin/glob ulin mass ratioOrdered By: Melissa Newsome on 03-10-2025 Albumin/Globulin [Mass ratio] 1.9 {ratio} 0.9-2.4 [facility] Serum or plasma alkaline beata sphatase measurementOrdered By: Melissa Newsome on 03-10-2025 ALP [Catalytic activity/Vol] 59 U/L 35-104 [facility] Serum or plasma calcium sharon urement (mass/volume)Ordered By: Melissa Newsome on 03-10-2025 Calcium [Mass/Vol] 9.8 mg/dL 7.6-11.0 [facility] Serum or plasma urea nitroge n measurement (mass/volume)Ordered By: Melissa Newsome on 03-10-2025 Urea nitrogen [Mass/Vol] 11 mg/dL 4-19 [facility] Serum peanut IgE antibody as say (units/volume)Ordered By: Melissa Newsome on 03-10-2025 Peanut IgE Qn (S) <0.10 kU/L Class 0 [facility] Serum pork IgE antibody assa y (units/volume)Ordered By: Melissa Newsome on 03-10-2025 Pork IgE Qn (S) <0.10 kU/L Class 0 [facility] Serum salmon IgE antibody as say (units/volume)Ordered By: Melissa Newsome on 03-10-2025 Mccool IgE Qn (S) <0.10 kU/L Class 0 [facility] Serum soybean IgE antibody a ssay (units/volume)Ordered By: Melissa Newsome on 03-10-2025 Soybean IgE Qn (S) <0.10 kU/L Class 0 [facility] Serum tissue transglutaminas e (tTG) IgA antibody assay (units/volume)Ordered By: Melissa Newsome on 03-10-2025 tTG IgA Qn (S) <2 U/mL 0-3 [facility] Comment on above: Negative 0 - 3 Weak Positive 4 - 10 Positive >10 Tissue Transglutaminase (tTG) has been identified as the endomysial antigen. Studies have demonstr- ated that endomysial IgA antibodies have over 99% specificity for gluten sensitive enteropathy. Serum tuna IgE antibody assa y (units/volume)Ordered By: Melissa Newsome on 03-10-2025 Tuna IgE Qn (S) <0.10 kU/L Class 0 [facility] Serum wheat IgE antibody ass ay (units/volume)Ordered By: Melissa Newsome on 03-10-2025 Wheat IgE Qn (S) <0.10 kU/L Class 0 [facility] Serum whole egg IgE antibody assay (units/volume)Ordered By: Melissa Newsome on 03-10-2025 Whole Egg IgE Qn (S) <0.10 kU/L Class [address] [facility] Sodium levelOrdered By: Mauri Newsome on 03-10-2025 Sodium [Moles/Vol] 139 mmol/L 133-145 [facility] TSH DL <= 0.005 mIU/L QnOrde red By: Melissa Newsome on 03-10-2025 TSH Qn 2.570 uIU/mL 0.300-4.200 [facility] Total proteinOrdered By: Dejan Newsome on 03-10-2025 Protein [Mass/Vol] 7.6 g/dL 5.9-8.4 [facility] White blood cell (WBC) count Ordered By: Melissa Newsome on 03-10-2025 WBC (Bld) [#/Vol] 5.9 10*3/uL 4.4-11.0 [facility] Internal Medicine Office Vis ito 03-06-2025 Internal Medicine Office Visit [facility] [place] [address] [place] [address] OFFICE VISIT Date of Service: 03/10/25 MR#: [id number] Acct: [id number] Name: EDISON PUENTE Rep #: [id number] : 2000 Provider: Dr. 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 Pt states that she gets 8 hours of sleep at night and does not feel rested, pt states she wakes up about every 30 minutes w/o reason and eventually is able to get back to sleep. Pt denies snoring. Pt went to [facility] for abdominal pain a month ago Pt is fasting for labs. [facility] Medical History (Updated 03/10/25 @ 11:[address] Melissa Newsome MD) COVID Mononucleosis Depression Surgical History (Updated 03/10/25 @ 11:08 by Cristiana Gannon MA) Hx of tonsillectomy H/O wisdom tooth extraction Family History (Updated 03/10/25 @ 11:[address] Melissa Newsome MD) Mother Hyperlipidemia Father Heart disease Hypertension Grandmother Breast cancer Grandmother Diabetes Aunt Diabetes Social History (Updated 03/10/25 @ 11:[address] 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 pets and animals: Yes (3) pets and animals: cat(s) sexually active: Yes Smoking Status: Former smoker quit date: 12/24/24 Tobacco: How many years used: 1 how long ago did patient quit smokin alcohol intake: never substance use type: does not use caffeine: Yes (1) Type: coffee what type of physical activity do you participate in: walking frequency: daily do you feel safe at home: Yes Questionnaire [facility]-9 BMS Over the last 2 weeks, how often have you been bothered by any of the following problems? 1. Little interest or pleasure in doing things: not at all 2. Feeling down, depressed, or hopeless: nearly every day 3. Trouble falling or staying asleep, or sleeping too much: nearly every day 4. Feeling tired or having little energy: nearly every day 5. Poor appetite or overeating: more than half the days 6. Feeling bad about yourself - or that you are a failure or have let yourself and your family down: nearly every day 7. Trouble concentrating on things, such as reading the newspaper or watching television: more than half the days 8. Moving or speaking so slowly that other people could have noticed? - Or the opposite - being so fidgety or restless that you have been moving around a lot more than usual: not at all 9. Thoughts that you would be better off or of hurting yourself in some way: not at all Total score: 16 If you checked off any problems, how difficult have these problems made it for you to do your work, take care of things at home, or get along with other people?: extremely difficult Source: Developed by Drs. Adolfo Mujica, Delia Kenney, Daniel Berry and colleagues, with an educational mikayla from [employer]. ROBERT-7 BMS ROBERT-7 Feeling nervous, anxious, or on edge: 0 = Not at all Not being able to stop or control worryin = Not at all Worrying too much about different things: 0 = Not at all Trouble relaxin = More than half the days Being so restless that it is hard to sit still: 1 = Several days Becoming easily annoyed or irritable: 0 = Not at all Feeling afraid as if something awful might happen: 3 = Nearly every day Total ROBERT-7 score (0-4 normal; 5-9 mild; 10-14 moderate; 15-21 severe): 6 Source: Developed by Drs. Adolfo Mujica, Delia Kenney, Daniel Berry and colleagues, with an educational mikayla from [employer]. HPI HPI Details: EDISON CLAYRICHAR, is a 24 F who presents to the office today to establish care. She was seeing a provider in [place] and last saw them a couple of years ago. She is not due for any routine blood work stating she had some done recently at [facility]. She is up to date on her screening and has an appointment scheduled with OBGYN in May. She doesn't want any further (more content not included)... Normal [facility] CBC WITH AUTO DIFFERENTIALon 01-28-2025 AUTO NRBC 0.0 % Normal [facility] Comment on above: Performed By: #### L [id number] #### [facility] [address] [place] [address] Fabiola Antonio M.D. [id number] AUTO NRBC ABS COUNT 0.00 K/mcL Normal 0.00-0.00 [facility] Comment on above: Performed By: #### L [id number] #### [facility] [address] [place] [address] Fabiola Antonio M.D. [id number] BASOPHILS ABSOLUTE COUNT 0.03 K/mcL Normal 0.00-0.30 [facility] Comment on above: Performed By: #### L [id number] #### LAB [address] [place] [address] Fabiola Antonio M.D. [id number] Basophils/100 WBC (Bld) 0.7 % Normal [facility] Comment on above: Performed By: #### L [id number] #### LAB [address] [place] [address] Fabiola Antonio M.D. [id number] Eosinophils (Bld) [#/Vol] 0.05 10*3/uL Normal 0.00-0.50 [facility] Comment on above: Performed By: #### L [id number] #### LAB [address] [place] [address] Fabiola Antonio M.D. [id number] Eosinophils/100 WBC (Bld) 1.2 % Normal [facility] Comment on above: Performed By: #### L [id number] #### [facility] [address] [place] [address] Fabiola Antonio M.D. [id number] Erythrocyte distribution width (RBC) [Ratio] 11.9 % Normal 11.6-14.8 [facility] Comment on above: Performed By: #### L [id number] #### LAB [address] [place] [address] Fabiola Antonio M.D. [id number] Hematocrit (Bld) [Volume fraction] 37.6 % Normal 36.0-46.0 [facility] Comment on above: Performed By: #### L [id number] #### LAB [address] [place] [address] Fabiola Antonio M.D. [id number] Hemoglobin (Bld) [Mass/Vol] 13.0 g/dL Normal 12.0-16.0 [facility] Comment on above: Performed By: #### L [id number] #### [facility] [address] [place] [address] Fabiola Antonio M.D. [id number] IG ABSOLUTE 0.01 K/mcL Normal 0.00-0.30 [facility] Comment on above: Performed By: #### L [id number] #### [facility] [address] [place] [address] Fabiola Antonio M.D. [id number] IG PERCENT 0.20 % Normal [facility] Comment on above: Result Comment: The IG parameter is the percentage of metamyelocytes, myelocytes and promyelocytes. An immature granulocyte count (IG) of 1% or more suggests the possibility of infection, an IG count of 3% is very likely related to an infection. Performed By: #### L [id number] #### [facility] [address] [place] [address] Fabiola Antonio M.D. [id number] Lymphocytes (Bld) [#/Vol] 1.51 10*3/uL Normal 0.90-4.00 [facility] Comment on above: Performed By: #### L [id number] #### LAB [address] [place] [address] Fabiola Antonio M.D. [id number] Lymphocytes/100 WBC (Bld) 37.2 % Normal [facility] Comment on above: Performed By: #### L [id number] #### LAB [address] [place] [address] Fabiola Antonio M.D. [id number] MCH (RBC) [Entitic mass] 30.9 pg Normal 26.0-34.0 [facility] Comment on above: Performed By: #### L [id number] #### LAB [address] [place] [address] Fabiola Antonio M.D. [id number] MCV (RBC) [Entitic vol] 89.3 fL Normal 80.0-100.0 [facility] Comment on above: Performed By: #### L [id number] #### LAB [address] [place] [address] Fabiola Antonio M.D. [id number] MEAN CORPUSCULAR HEMOGLOBIN CONC 34.6 g/dL Normal 31.0-37.0 [facility] Comment on above: Performed By: #### L [id number] #### LAB [address] [place] [address] Fabiola Antonio M.D. [id number] Monocytes (Bld) [#/Vol] 0.50 10*3/uL Normal 0.30-0.90 [facility] Comment on above: Performed By: #### L [id number] #### LAB [address] [place] [address] Fabiola Antonio M.D. [id number] Monocytes/100 WBC (Bld) 12.3 % Normal [facility] Comment on above: Performed By: #### L [id number] #### LAB [address] [place] [address] Fabiola Antonio M.D. [id number] NEUTROPHILS ABSOLUTE COUNT 1.96 K/mcL Normal 1.70-7.00 [facility] Comment on above: Performed By: #### L [id number] #### LAB [address] [place] [address] Fabiola Antonio M.D. [id number] Neutrophils/100 WBC (Bld) 48.4 % Normal [facility] Comment on above: Result Comment: Heaven pheral smear reviewed manually Performed By: #### L [id number] #### LAB [address] [place] [address] Fabiola Antonio M.D. [id number] Platelet mean volume (Bld) [Entitic vol] 10.4 fL Normal 9.4-12.4 [facility] Comment on above: Performed By: #### L [id number] #### LAB [address] [place] [address] Fabiola Antonio M.D. [id number] Platelets (Bld) [#/Vol] 163 10*3/uL Normal 150-400 [facility] Comment on above: Performed By: #### L [id number] #### [facility] [address] [place] [address] Fabiola Antonio M.D. [id number] RBC (Bld) [#/Vol] 4.21 10*6/uL Normal 4.00-5.20 [facility] Comment on above: Performed By: #### L [id number] #### [facility] [address] [place] [address] Fabiola Antonio M.D. [id number] WBC (Bld) [#/Vol] 4.06 10*3/uL Low 4.50-11.00 [facility] Comment on above: Performed By: #### L [id number] #### LAB [address] [place] [address] Fabiola [address] M[address]D. [id number] CT ABDOMEN PELVIS WITH IV CO NTRAST ONLYon 01-28-2025 CT ABDOMEN PELVIS WITH IV CONTRAST ONLY EXAMINATION: CT ABDOMEN PELVIS WITH IV CONTRAST ONLY HISTORY: ORDERING SYSTEM PROVIDED HISTORY: Right lower quadrant pain rule out appendicitis versus ovarian cyst, TECHNOLOGIST PROVIDED HISTORY: Illness/Other Reason for exam: RLQ pain x1 wk , nki, IUD Encounter Type: Initial Additional signs and symptoms: C/o RLQ abd pain x 1 week. ORDERING SYSTEM PROVIDED DIAGNOSIS CODES: COMPARISON: Renal and bladder ultrasound from 10/25/2021. TECHNIQUE: CT examination of the abdomen and pelvis following the administration of intravenous contrast. Coronal and sagittal reformations were performed. Dose reduction techniques were achieved by using automated exposure control and/or adjustment of mA and/or kV according to patient size and/or use of iterative reconstruction technique. CONTRAST: IOPAMIDOL 370 MG IODINE/ML (76 %) INTRAVENOUS SOLUTION - 75 mL, FINDINGS: The lung bases are clear of infiltrate or nodule or effusion. Visualized heart shows no gross enlargement or pericardial effusion. The gastroesophageal junction is unremarkable. Spleen shows mild enlargement without abnormal density or enhancement. The abdominal and pelvic vasculature is unremarkable. The left renal vein passes posteriorly to the aorta of incidental note. The liver shows mild enlargement without abnormal enhancement or density or ductal dilatation. The gallbladder shows no inflammation or stone. The stomach, pancreas, duodenum and adrenal glands are unremarkable. The kidneys show normal enhancement without hydronephrosis or inflammation or obvious stone. The ureters and bladder show no stones or defects. The bladder is well distended. The inguinal and ischiorectal regions are unremarkable. The anus and rectum are unremarkable. The uterus and adnexal areas are unremarkable. Intrauterine device appears to be in good position. There is trace amount of free fluid in the pelvis which may be physiologic. No adnexal masses or inflammation noted. There is moderate stool throughout the colon. The large and small bowels show no signs of obstruction or inflammation. The mesentery and ileocecal junction are unremarkable. The appendix appears to be unremarkable. No free air, free fluid, loculated fluid, mass or lymphadenopathy noted. The subcutaneous tissues are unremarkable. No abdominal wall hernia is noted. No bony lesions or defects noted. IMPRESSION: 1. No sign of inflammation in the right lower quadrant. Large and small bowel show no acute process. There is moderate stool throughout the colon suggestive of constipation. The appendix is partially visualized with out obvious inflammation. 2. Intrauterine device is in good position. There is trace amount of free fluid in the pelvis most likely physiologic in nature. Workstation ID: [id number] Dictated by: CHRIS KAY on MonJanuary 28, 2025 10:53:53 PM EDT Transcribed by: CHRIS KAY on MonJanuary 28, 2025 10:53:53 PM EDT Finalized by: CHRIS KAY on MonJanuary 28, 2025 10:53:53 PM EDT [facility] Comment on above: Order Comment: Injur y/Trauma or Illness?:Illness/Other How long have you had these symptoms (acute/chronic)?:Acute Reason for exam?:RLQ pain x1 wk , nki, IUD Type of Exam?:Initial Additional signs and symptoms?:C/o RLQ abd pain x 1 week. ED Prov Noteon 01-28-2025 ED Prov Note HPI: 01/28/2025, Time: @NOWDELBERT@ Edison Puente is a 24 y.o. female presenting to the ED for gradual onset of right lower quadrant pain, beginning 1 week ago. The complaint has been intermittent, moderate in severity, and worsened by changing position. No fever chills or night sweats. Positive nausea but no emesis and no diarrhea or constipation. Patient has irregular menses but also has IUD. No urinary complaints ROS: Pertinent positives and negatives are stated within HPI, all other systems reviewed and are negative. ------- PAST HISTORY ------- Past Medical History: @[facility]@ Past Surgical History: has a past surgical history that includes tonsillectomy. Social History: reports that she has never smoked. Her smokeless tobacco use includes snuff. She reports that she does not use drugs. Family History: family history is not on file. The patient's home medications have been reviewed. Allergies: Patient has no known allergies. RESULTS All laboratory and radiology results have been personally reviewed by myself LABS: Results for orders placed or performed during the hospital encounter of 01/28/25 POC CBC and Differential Collection Time: 01/28/25 9:35 PM Result Value Ref Range WBC 3.78 (L) 4.50 - 11.00 K/mcL RBC 4.33 4.00 - 5.20 M/mcL Hemoglobin 13.4 12.0 - 16.0 g/dL Hematocrit 38.9 36.0 - 46.0 % MCV 89.8 80.0 - 100.0 fL MCH 30.9 26.0 - 34.0 pg MCHC 34.4 31.0 - 37.0 g/dL RDW - CV 11.7 11.6 - 14.8 % Platelets 152 150 - 400 K/mcL MPV 9.2 (L) 9.4 - 12.4 fL Comment See Comment (CR) (none) POC Urinalysis Dipstick, Auto Collection Time: 01/28/25 9:40 PM Result Value Ref Range Spec Grav, UA <=1.005 1.005 - 1.025 pH, UA 5.5 5.0 - 7.0 Protein, UA Negative Negative mg/dL Glucose, UA Negative Negative mg/dL Ketones, UA Negative Negative mg/dL Bilirubin, UA Negative Negative Urobilinogen, UA 0.2 <2.0 mg/dL Blood, UA Small (A) Negative Nitrite, UA Negative Negative Leukocyte Esterase, UA Negative Negative POC , Urine Collection Time: 01/28/25 9:40 PM Result Value Ref Range POC Preg Test, Urine Negative Negative POC Basic Metabolic Panel Collection Time: 01/28/25 9:41 PM Result Value Ref Range Glucose 80 65 - 99 mg/dL BUN 5 (L) 8 - 25 mg/dL Creatinine 0.66 0.40 - 1.10 mg/dL GFR 127 >=60 mL/min/1.73 m2 Sodium 140 135 - 145 mmol/L Potassium 3.5 3.5 - 5.1 mmol/L Chloride 104 98 - 108 mmol/L TCO2 24 21 - 32 mmol/L Ionized Calcium 4.8 4.5 - 5.3 mg/dL POC CBC and Differential Collection Time: 01/28/25 9:45 PM Result Value Ref Range WBC 4.12 (L) 4.50 - 11.00 K/mcL RBC 4.21 4.00 - 5.20 M/mcL Hemoglobin 13.0 12.0 - 16.0 g/dL Hematocrit 37.8 36.0 - 46.0 % MCV 89.8 80.0 - 100.0 fL MCH 30.9 26.0 - 34.0 pg MCHC 34.4 31.0 - 37.0 g/dL RDW - CV 11.6 11.6 - 14.8 % Platelets 161 150 - 400 K/mcL MPV 9.5 9.4 - 12.4 fL Comment See Comment (CR) (none) RADIOLOGY: Interpreted by Radiologist. CT Abdomen Pelvis With IV Contrast Only Final Result 1. No sign of inflammation in the right lower quadrant. Large and small bowel show no acute process. There is moderate stool throughout the colon suggestive of constipation. The appendix is partially visualized with out obvious inflammation. 2. Intrauterine device is in good position. There is trace amount of free fluid in the pelvis most likely physiologic in nature. Workstation ID: [id number] ------ NURSING NOTES AND VITALS REVIEWED -------- The nursing notes within the ED encounter and vital signs as below have been reviewed. BP 129/84 Pulse 76 Temp 99 degrees F (37.2 degrees C) (Oral) Wt 47.6 kg (105 lb) SpO2 100% Oxygen Saturation Interpretation: Normal PHYSIC AL EXAM ---- Constitutional/Gene ral: Alert and oriented x3, well appearing, non toxic in NAD Head: NC/AT Eyes: PERRL, EOMI Mouth: Oropharynx clear, handling secretions, no trismus Neck: Supple, full ROM, no meningeal signs Pulmonary: Lungs clear to auscultation bilaterally, no wheezes, rales, or rhonchi. Not in respiratory distress Cardiovascular: Regular rate and rhythm, no murmurs, gallops, or rubs. 2+ distal pulses Abdomen: Soft, mild right lower quadrant tenderness to palpation but no guarding or rebound, non distended, Extremities: Moves all extremities x 4. Warm and well perfused Skin: warm and dry without rash Neurologic: GCS 15, Psych: Normal Affect ED COURSE/MEDICAL DECISION MAKING --------- Medications sodium chloride 0.9% (NS) bolus 500 mL (500 mL Intravenous New Bag 01/28/252209) ketorolac (TORADOL) injection 15 mg (15 mg Intravenous Given 01/28/252209) s (more content not included)... [facility] MORPHOLOGYon 01-28-2025 OVAL SCAN Few [facility] Comment on above: Performed By: #### L [id number] #### [facility] [address] [place], [place] [address] Fabiola Antonio M.D. [id number] PLATELET ESTIMATE Normal [facility] Comment on above: Performed By: #### L AB295 #### [facility] [address] [place] [address] Fabiola Antonio M.D. [id number] RBC MORPH SCAN See Comment [facility] Comment on above: Result Comment: RBC Indices confirmed with manual peripheral smear review. Performed By: #### L AB295 #### [facility] [address] [place] [address] Fabiola Antonio M.D. [id number] POC BASIC METABOLIC PANEL [facility] 01-28-2025 Chloride [Moles/Vol] 104 mmol/L Normal 98-108 [facility] Comment on above: Order Comment: [facility] has implemented the eGFR calculation approach that does not have a coefficient for race that conforms to the NKF-ASN Task Force Recommendations. CO2 [Moles/Vol] 24 mmol/L Normal 21-32 [facility] Comment on above: Order Comment: [facility] has implemented the eGFR calculation approach that does not have a coefficient for race that conforms to the NKF-ASN Task Force Recommendations. Creatinine [Mass/Vol] 0.66 mg/dL Normal 0.40-1.10 [facility] Comment on above: Order Comment: [facility] has implemented the eGFR calculation approach that does not have a coefficient for race that conforms to the NKF-ASN Task Force Recommendations. Glucose [Mass/Vol] 80 mg/dL Normal 65-99 [facility] Comment on above: Order Comment: [facility] has implemented the eGFR calculation approach that does not have a coefficient for race that conforms to the NKF-ASN Task Force Recommendations. POC GFR 127 mL/min/1.73 m2 Normal >=60 [facility] Comment on above: Order Comment: [facility] has implemented the eGFR calculation approach that does not have a coefficient for race that conforms to the NKF-ASN Task Force Recommendations. Result Comment: Carmita mated GFR was calculated using the 2020 CKD-EPI creatinine equation. POC IONIZED CALCIUM 4.8 mg/dL Normal 4.5-5.3 [facility] Comment on above: Order Comment: [facility] has implemented the eGFR calculation approach that does not have a coefficient for race that conforms to the NKF-ASN Task Force Recommendations. Potassium [Moles/Vol] 3.5 mmol/L Normal 3.5-5.1 [facility] Comment on above: Order Comment: [facility] has implemented the eGFR calculation approach that does not have a coefficient for race that conforms to the NKF-ASN Task Force Recommendations. Sodium [Moles/Vol] 140 mmol/L Normal 135-145 [facility] Comment on above: Order Comment: [facility] has implemented the eGFR calculation approach that does not have a coefficient for race that conforms to the NKF-ASN Task Force Recommendations. Urea nitrogen [Mass/Vol] 5 mg/dL Low 8-25 [facility] Comment on above: Order Comment: [facility] has implemented the eGFR calculation approach that does not have a coefficient for race that conforms to the NKF-ASN Task Force Recommendations. POC CBC AND DIFFERENTIALon 0 01-28-2025 Erythrocyte distribution width (RBC) [Ratio] 11.6 % Normal 11.6-14.8 [facility] Hematocrit (Bld) [Volume fraction] 37.8 % Normal 36.0-46.0 [facility] Hemoglobin (Bld) [Mass/Vol] 13.0 g/dL Normal 12.0-16.0 [facility] MCH (RBC) [Entitic mass] 30.9 pg Normal 26.0-34.0 [facility] MCV (RBC) [Entitic vol] 89.8 fL Normal 80.0-100.0 [facility] MEAN CORPUSCULAR HEMOGLOBIN CONC 34.4 g/dL Normal 31.0-37.0 [facility] Platelet mean volume (Bld) [Entitic vol] 9.5 fL Normal 9.4-12.4 [facility] Platelets (Bld) [#/Vol] 161 10*3/uL Normal 150-400 [facility] RBC (Bld) [#/Vol] 4.21 10*6/uL Normal 4.00-5.20 [facility] WBC (Bld) [#/Vol] 4.12 10*3/uL Low 4.50-11.00 [facility] [id number] See Comment Critically abnormal (none) [facility] Comment on above: Result Comment: CRIT ICAL. CBCD reordered and sent to . Possible presence of atypical lymphocytes present. Automated differential not reported. Erythrocyte distribution width (RBC) [Ratio] 11.7 % Normal 11.6-14.8 [facility] Hematocrit (Bld) [Volume fraction] 38.9 % Normal 36.0-46.0 [facility] Hemoglobin (Bld) [Mass/Vol] 13.4 g/dL Normal 12.0-16.0 [facility] MCH (RBC) [Entitic mass] 30.9 pg Normal 26.0-34.0 [facility] MCV (RBC) [Entitic vol] 89.8 fL Normal 80.0-100.0 [facility] MEAN CORPUSCULAR HEMOGLOBIN CONC 34.4 g/dL Normal 31.0-37.0 [facility] Platelet mean volume (Bld) [Entitic vol] 9.2 fL Low 9.4-12.4 [facility] Platelets (Bld) [#/Vol] 152 10*3/uL Normal 150-400 [facility] RBC (Bld) [#/Vol] 4.33 10*6/uL Normal 4.00-5.20 [facility] WBC (Bld) [#/Vol] 3.78 10*3/uL Low 4.50-11.00 [facility] [id number] See Comment Critically abnormal (none) [facility] Comment on above: Result Comment: CRIT ICAL. CBCD reordered and sent to . Possible presence of atypical lymphocytes present. Automated differential not reported. POC , URINE - [facility] n 01-28-2025 Beta HCG ( test) Ql (U) Negative Normal Negative [facility] Comment on above: Order Comment: Negat mandeep: Dilute urine specimens, as indicated by a low specific gravity (<1.010) may not contain representitive levels of hCG. If is still suspected, a serum test or repeat urine test using a first morning urine specimen should be considered. POC URINALYSIS DIPSTICK,AUTO - RALSon 01-28-2025 POC BILIRUBIN, URINE Negative Normal Negative [facility] POC BLOOD, URINE Small Abnormal Negative [facility] POC GLUCOSE, URINE Negative Normal Negative [facility] POC KETONES, URINE Negative Normal Negative [facility] POC LEUKOCYTE ESTERASE, URINE Negative Normal Negative [facility] POC NITRITE, URINE Negative Normal Negative [facility] POC PH, URINE 5.5 Normal 5.0-7.0 [facility] POC PROTEIN, URINE Negative Normal Negative [facility] POC SPECIFIC GRAVITY <= Normal 1.005-1.025 [facility] POC UROBILINOGEN 0.2 mg/dL Normal < 2.0 [facility] BACTERIAL CULTURE, URINEOrde red By: Brigida Rodriguez on 01-14-2025 Bacteria identified Cx Nom (U) <10,000 CFU/ml Mixed microbiota Abnormal [facility] Comment on above: No further workup. M ixed microbiota can be due to urine contamination with skin bacteria at time of collection or presence of a long-term urinary catheter. If a new culture is needed, please consider re-education of the patient on proper midstream co llection technique or straight catheterization for urine collection. Bacteria identified Cx Nom ( U)Ordered By: Brigida Rodriguez on 01-14-2025 Interpretation and review of laboratory results Abnormal [facility] Bacteria Ur Culton Bacteria identified Cx Nom (U) ORGANISM ID: 1 <10,000 CFU/ml Mixed microbiota No further workup. Mixed microbiota can be due to???urine???contam ination with skin bacteria at time of collection or presence of a long-term urinary catheter. If a new culture is needed, please consider re-education of the patient on proper midstream collection technique or straight catheterization for???urine???colle ction. Normal [facility] Comment on above: Performed By: #### 6 30-4 #### [facility] CLIA [id number] [address] [facility] [address] OF [facility] CNOVon 01-13-2025 CNOV Office Visit (UCWSTR) ---- EDISON PUENTE ([id number]) 2 F Date Time Provider Department 01/13/25 5:00 PM MICHELLE TUBBS WS During your visit today, we recorded the following information about you: Temperature Pulse Respiration Blood pressure 98.5 degrees 98/minute 16/minute 102/64 Weight 48 kg Michelle Tubbs APRN.LEARNING CENTER INSTRUCTOR 01/13/2025 4:52 PM Signed This note was created using [employer]. Subjective Edison Puente is a 24 year old female. HPI Patient notes some nausea and vomiting yesterday which has currently resolved. Today she noticed some urinary burning and frequency along with some low back pain which she feels is consistent with her previous urinary tract infections. She denies any chance of and denies any concerns for STD. Denies any recent fever. Review of Systems As above Objective BP 102/64 Pulse 98 Temp 36.9 ?C (98.5 ?F) (Tympanic) Resp 16 Wt 48 kg (105 lb 13.1 oz) LMP 08/18/2021 SpO2 98% Physical Exam Vitals and nursing note reviewed. Constitutional: General: She is not in acute distress. Appearance: Normal appearance. She is not ill-appearing. HENT: Head: Normocephalic. Mouth/Throat: Mouth: Mucous membranes are moist. Eyes: Conjunctiva/sclera: Conjunctivae normal. Cardiovascular: Rate and Rhythm: Normal rate and regular rhythm. Pulmonary: Effort: Pulmonary effort is normal. Breath sounds: Normal breath sounds. Abdominal: Tenderness: There is abdominal tenderness. There is no right CVA tenderness or left CVA tenderness. Comments: Mild diffuse tenderness Musculoskeletal: General: Normal range of motion. Cervical back: Normal range of motion. Skin: General: Skin is warm and dry. Neurological: General: No focal deficit present. Mental Status: She is alert. Psychiatric: Mood and Affect: Mood normal. Behavior: Behavior normal. Assessment and Plan ASSESSMENT/PLAN: 1. Urinary frequency - ICD9: 788.41, ICD10: R35.0 acute - UA positive for josesito esterase - Send urine for culture - Begin treatment with Macrobid 100 mg BID for 5 days - Patient education for prevention given -Patient also given a prescription for fluconazole as she often notes yeast infections post antibiotic use -No additional testing done as patient denies any concern for or STD -Macrobid -Fluconazole - UA DIP, URINE (POC) - BACTERIAL CULTURE, URINE Michelle Tubbs APRN.CNP Allergies As of Date: 01/13/2025 (No Known Allergies) Date Reviewed: 01/13/2025 Reviewed by: Michelle Tubbs APRN.LEARNING CENTER INSTRUCTOR - Fully Assessed Reason for Visit: Urinary Frequency [1086] Cmt: Frequency, burning and lower back pain x 1 day Primary Visit Diagnosis:Urinary frequency [R35.0] Order(s):UA DIP, URINE (POC) [[id number]] Order #: [id number]. #:[id number] BACTERIAL CULTURE, URINE [SQURCUL] Order #: [id number]. #:[id number] nitrofurantoin monohydrate and macrocrystal (MACROBID) 100 mg capsuleTake 1 capsule by mouth two times a day for 5 days.Disp: 10 capsuleRfl: 0 fluconazole (DIFLUCAN) 150 mg tabletTake 1 tablet by mouth one time only for 1 dose. If symptoms have not improved in 72 hours may take second doseDisp: 2 tabletRfl: 0 Prescriptions as of 01/13/2025 - nitrofurantoin monohydrate and macrocrystal (MACROBID) 100 mg capsule Take 1 capsule by mouth two times a day for 5 days. - fluconazole (DIFLUCAN) 150 mg tablet Take 1 tablet by mouth one time only for 1 dose. If symptoms have not improved in 72 hours may take second dose - levonorgestrel (KYLEENA) 17.5 mcg/24 hrs (5 yrs) 19.5 mg IUD Take by intrauterine route. Problem List As Of Date: 01/13/2025 (None) Prescriptions ordered this encounter Disp Refills Start End NITROFURANTOIN MONOHYDRATE AND MACROCR* 10 c* 0 01/13/2025 01/18/2025 Route: ORAL Sig: Take 1 capsule by mouth two times a day for 5 days. FLUCONAZOLE 150 MG TABLET 2 ta* 0 01/13/2025 01/13/2025 Route: ORAL Sig: Take 1 tablet by mouth one time only for 1 dose. If symptoms have not improved in 72 hours may take second dose Encounter Status:Closed by MICHELLE TUBBS on 01/13/25 Normal [facility] UA DIP, URINE (POC)on 2024 BILIRUBIN UA (POCT) Negative Negative [place] CLARITY UA (POCT) Clear [facility] COLOR UA (POCT) Yellow [facility] GLUCOSE UA (POCT) Negative Negative mg/dL [facility] [place] Hemoglobin Ql (U) Small Abnormal Negative [facility] Interpretation and review of laboratory results Abnormal [facility] KETONE UA (POCT) Negative Negative mg/dL [facility] LEUKOCYTES UA (POCT) Trace Abnormal Negative [facility] NITRITE UA (POCT) Negative Negative [facility] PH UA (POCT) 7 4.5 - 8.0 [facility] Protein Ql (U) Negative Negative mg/dL [facility] SPECIFIC GRAVITY UA (POCT) 1.025 1.005 - 1.030 [facility] UROBILINOGEN UA (POCT) 0.2 Normal E.U./d L [facility] Location:[address], [place], [place], [id number] [place] [address] POINT OF CARE [facility] Bacteria Ur Culton 4 Bacteria identified Cx Nom (U) CULTURE, URINE: Mixed microbiota, including predominantly: ORGANISM ID: 1 50,000-<100,000 CFU/ml Escherichia coli ORGANISM ID: 1 (ESCHERICHIA COLI) ANTIBIOTIC INTERPRETATION ALVARADO STATUS REFERENCE RANGE Ampicillin R >=32 F Susceptible <=8 , Intermediate >8 , Resistant >16 Cefazolin S <=4 F Susceptible 0-16 , Intermediate <0 or >16 , Resistant >16 For uncomplicated urinary tract infections, cefazolin results can be used to predict susceptibility or resistance to cephalexin. Ceftriaxone S <=1 F Susceptible <=1 , Intermediate >1 , Resistant >=4 Cefepime S <=1 F Susceptible <=2 , Susceptible-Dose Dependent >2 , Resistant >=16 Ertapenem S <=0.5 F Susceptible <=0.5 , Intermediate >.5 , Resistant >1 Meropenem S <=0.25 F Susceptible <=1 , Intermediate >1 , Resistant >2 Ampicillin/Sulbact R >=32 F Susceptible <=8 , Intermediate >8 , Resistant >16 Piperacillin/Tazoba c S <=4 F Susceptible <16 , Susceptible-Dose Dependent >=16 , Resistant >=32 Gentamicin S <=1 F Susceptible <=2 , Intermediate >2 , Resistant >=8 Tobramycin S <=1 F Susceptible <4 , Intermediate >=4 , Resistant >=8 Trimeth sulfameth S <=20 F Susceptible <=40 , Resistant >40 Ciprofloxacin S <=0.25 F Susceptible <0.5 , Intermediate >=.5 , Resistant >=1 Nitrofurantoin S <=16 F Susceptible <=32 , Intermediate >32 , Resistant >64 Abnormal [facility] Comment on above: Performed By: #### 6 30-4 #### [facility] CLIA [id number] [address] [place] [address] [place] CNOVon 07-30-2024 CNOV Office Visit (UCWSTR) ---- EDISON PUENTE ([id number]) 2 F Date Time Provider Department 07/30/24 12:45 PM [place] GREGORY [facility] During your visit today, we recorded the following information about you: Temperature Pulse Respiration Blood pressure 98.2 degrees 70/minute 16/minute 96/62 Weight 43.5 kg Gregory Be PA-C 07/30/2024 1:24 PM Signed This note was created using [employer]. Subjective Edison Puente is a 24 year old female. Patient is a 24-year-old female who complains of dysuria and hematuria that she has noted for the past 3 days. Patient also reports slight left lower back pain. Patient denies fever, chills, nausea, flank pain or other symptoms. Patient has no history of kidney stone. Patient states her last menses was 2 weeks ago and normal. Patient does have a history of UTI and states her current symptoms are consistent with same. Review of Systems Genitourinary: Positive for dysuria, hematuria and urgency. Negative for enuresis, flank pain, frequency and pelvic pain. All other systems reviewed and are negative. Objective BP 96/62 Pulse 70 Temp 36.8 ?C (98.2 ?F) Resp 16 Wt 43.5 kg (95 lb 14.4 oz) LMP 08/18/2021 SpO2 99% Physical Exam Vitals and nursing note reviewed. Constitutional: Appearance: Normal appearance. She is normal weight. HENT: Head: Normocephalic and atraumatic. Right Ear: External ear normal. Left Ear: External ear normal. Nose: Nose normal. Mouth/Throat: Mouth: Mucous membranes are moist. Pharynx: Oropharynx is clear. Eyes: Extraocular Movements: Extraocular movements intact. Conjunctiva/sclera: Conjunctivae normal. Pupils: Pupils are equal, round, and reactive to light. Cardiovascular: Rate and Rhythm: Normal rate. Pulses: Normal pulses. Heart sounds: Normal heart sounds. Pulmonary: Effort: Pulmonary effort is normal. Breath sounds: Normal breath sounds. Abdominal: General: Abdomen is flat. Palpations: Abdomen is soft. Musculoskeletal: Cervical back: Normal range of motion and neck supple. Skin: General: Skin is warm and dry. Capillary Refill: Capillary refill takes less than 2 seconds. Neurological: General: No focal deficit present. Mental Status: She is alert and oriented to person, place, and time. Psychiatric: Mood and Affect: Mood normal. Behavior: Behavior normal. Thought Content: Thought content normal. Judgment: Judgment normal. Assessment and Plan Physical exam findings as noted above. UA shows leukocyte esterase and blood. Urine culture was ordered. Patient was provided with a prescription for Keflex 250 mg and advised that results of the urine culture will be available in 2 days. Patient was informed that she will be contacted if her medication needs to be changed based on the sensitivity report. Patient states that she typically develops vaginal yeast infections with antibiotic use and she was also provided with a prescription for Diflucan 150 mg. Patient verbalizes good understanding of all of the above instructions. CLINICAL IMPRESSION: Acute UTI Allergies As of Date: 07/30/2024 (No Known Allergies) Date Reviewed: 07/30/2024 Reviewed by: Nanci Sheikh MA - Fully Assessed Reason for Visit: Low Back Pain [126] Cmt: frequency and fever x 4 days Primary Visit Diagnosis:Urinary frequency [R35.0] Other Visit Diagnosis:Acute UTI [N39.0] Order(s):UA DIP, URINE (POC) [[id number]] Order #: [id number]. #:[id number] URINE CULTURE [SQURCUL] Order #: [id number]. #:[id number] cephALEXin (KEFLEX) 250 mg capsuleTake 1 capsule by mouth four times daily for 7 days.Disp: 28 capsuleRfl: 0 fluconazole (DIFLUCAN) 150 mg tabletTake 1 tablet by mouth one time only for 1 dose. Repeat in 3 days as needed.Disp: 2 tabletRfl: 0 Prescriptions as of 07/30/2024 - cephALEXin (KEFLEX) 250 mg capsule Take 1 capsule by mouth four times daily for 7 days. - fluconazole (DIFLUCAN) 150 mg tablet Take 1 tablet by mouth one time only for 1 dose. Repeat in 3 days as needed. - levonorgestrel (KYLEENA) 17.5 mcg/24 hrs (5 yrs) 19.5 mg IUD Take by intrauterine route. Problem List As Of Date: 07/30/2024 (None) Prescriptions ordered this encounter Disp Refills Start End CEPHALEXIN 250 MG CAPSULE 28 c* 0 07/30/2024 08/06/2024 Class: Print RX Route: ORAL Sig: Take 1 capsule by mouth four times daily for 7 days. FLUCONAZOLE 150 MG TABLET 2 ta* 0 07/30/2024 07/30/2024 Class: Print RX Route: ORAL Sig: Take 1 tablet by mouth one time only for 1 dose. Repeat in 3 days as needed. Level of Service: OFFICE/OUTPATIENT [facility] 30 MINUTES [15799] Encounter Status:Closed by GREGORY BE on 07/30/24 Normal [facility] UA DIP, URINE (POC)on 2023 BILIRUBIN UA (POCT) Negative Negative [place] CLARITY UA (POCT) Clear [facility] COLOR UA (POCT) Yellow [facility] GLUCOSE UA (POCT) Negative Negative mg/dL [facility] [place] Hemoglobin Ql (U) Small Abnormal Negative [facility] Interpretation and review of laboratory results Abnormal [facility] KETONE UA (POCT) Negative Negative mg/dL [facility] LEUKOCYTES UA (POCT) Small Abnormal Negative [facility] [facility] NITRITE UA (POCT) Negative Negative [facility] PH UA (POCT) 6.0 4.5 - 8.0 [facility] Protein Ql (U) Negative Negative mg/dL [facility] SPECIFIC GRAVITY UA (POCT) 1.025 1.005 - 1.030 [facility] UROBILINOGEN UA (POCT) 0.2 Normal E.U./d L [facility] Location:[facility], [address] [place] [address], [place], [address] [facility] POINT OF CARE [facility] BACTERIAL VAGINOSIS NAATon 0 05-08-2024 Lactobacillus crispatus+gasseri+jense ayaz + Gardnerella vaginalis + Atopobium vaginae rRNA CJ+probe Ql (Vag fld) Negative Normal Negative for bacterial vaginosis [facility] Comment on above: Order Comment: Speci men Type: SWAB Ordering Facility: [facility] Address: [address] [place] [address] Performed By: #### 3 6902-5, BVAMP #### [facility] CLIA [id number] [address] [facility] [id number] [place] [address] [place] Bacteria Ur Culton 4 Bacteria identified Cx Nom (U) ORGANISM ID: 1 50,000-<100,000 CFU/ml Escherichia coli ORGANISM ID: 1 (ESCHERICHIA COLI) ANTIBIOTIC INTERPRETATION ALVARADO STATUS REFERENCE RANGE Ampicillin R >=32 F Susceptible <=8 , Intermediate >8 , Resistant >16 Cefazolin S <=4 F Susceptible 0-16 , Intermediate <0 or >16 , Resistant >16 For uncomplicated urinary tract infections, cefazolin results can be used to predict susceptibility or resistance to cephalexin. Ceftriaxone S <=1 F Susceptible <=1 , Intermediate >1 , Resistant >=4 Cefepime S <=1 F Susceptible <=2 , Susceptible-Dose Dependent >2 , Resistant >=16 Ertapenem S <=0.5 F Susceptible <=0.5 , Intermediate >.5 , Resistant >1 Meropenem S <=0.25 F Susceptible <=1 , Intermediate >1 , Resistant >2 Ampicillin/Sulbact I 16 F Susceptible <=8 , Intermediate >8 , Resistant >16 Piperacillin/Tazoba c S <=4 F Susceptible <16 , Susceptible-Dose Dependent >=16 , Resistant >=32 Gentamicin S <=1 F Susceptible <=2 , Intermediate >2 , Resistant >=8 Tobramycin S <=1 F Susceptible <4 , Intermediate >=4 , Resistant >=8 Trimeth sulfameth S <=20 F Susceptible <=40 , Resistant >40 Ciprofloxacin S <=0.25 F Susceptible <0.5 , Intermediate >=.5 , Resistant >=1 Nitrofurantoin S <=16 F Susceptible <=32 , Intermediate >32 , Resistant >64 Abnormal [facility] Comment on above: Performed By: #### 6 30-4 #### [facility] CLIA [id number] [address] [place] [address] [place] C. trachomatis+N. gonorrhoea e DNA CJ+probe Ql (Unsp spec)on 05-08-2024 C. trachomatis rRNA CJ+probe Ql (Unsp spec) Negative Normal Negative for Chlamydia trachomatis by amplificaton [facility] Comment on above: Order Comment: Speci men Type: SWAB Ordering Facility: [facility] Address: [address] [place] [address] Performed By: #### 3 6902-5, BVAMP #### [facility] CLIA [id number] [address] [place] [address] [place] N. gonorrhoeae rRNA CJ+probe Ql (Unsp spec) Negative Normal Negative for Neisseria gonorrhoeae by amplification [facility] Comment on above: Order Comment: Speci men Type: SWAB Ordering Facility: [facility] Address: [address] [place] [address] Performed By: #### 3 6902-5, BVAMP #### [facility] CLIA [id number] [address] [place] [address] [place] BELEN/TRICHOMONAS NAATon 0 05-08-2024 C. glabrata RNA CJ+probe Ql (Vag fld) Negative Normal Negative for Belen glabrata [facility] Comment on above: Order Comment: Speci men Type: SWAB Ordering Facility: [facility] Address: [address] [place] [address] Performed By: #### C VTV #### [facility] CLIA [id number] [address] [place] [address] [place] Belen sp DNA CJ+probe Ql (Vag fld) Positive Abnormal Negative for Belen species [facility] Comment on above: Order Comment: Speci men Type: SWAB Ordering Facility: [facility] Address: [address] [place] [address] Performed By: #### C VTV #### [facility] CLIA [id number] [address] [place] [address] [place] T. vaginalis DNA CJ+probe Ql (Unsp spec) Negative Normal Negative for Trichomonas vaginalis by amplification [facility] Comment on above: Order Comment: Speci men Type: SWAB Ordering Facility: [facility] Address: [address] [place] [address] Performed By: #### C VTV #### [facility] CLIA [id number] [address] [place] [address] [place] CNOVon 05-08-2024 CNOV Office Visit (UCWSTR) ---- EDISON PUENTE ([id number]) 2 F Date Time Provider Department 05/08/24 5:45 PM MARIA GREER [facility] During your visit today, we recorded the following information about you: Temperature Pulse Respiration Blood pressure 99.2 degrees 77/minute 18/minute 100/64 Weight 43.6 kg Maria Greer APRN.CNP 05/08/2024 7:24 PM Signed This note was created using NoteWriter. Subjective Edison Puente is a 24 year old female. 24 year old female with no PMH presents for possile UTI. Acute onset 3 to 4 days ago Pain with urinating +frequency +cloudy urine +vaginal bleeding +vaginal discharge +suprapubic pressure Denies fever or chills LMP-recently ended Recent coitus Endorses increasing fluids has helped. Endorses she engages in sex with single partner. Denies concerns for possible STI, but states anything is possible The history is provided by the patient. No corsage maker was used. Female Gu Problem This is a new problem. The current episode started 3 to 5 days ago. The onset was gradual. The problem occurs continuously. The problem has been gradually worsening. Nothing relieves the symptoms. Nothing aggravates the symptoms. Associated symptoms include frequency, urgency and vaginal discharge. Pertinent negatives include no chest pain, no anorexia, no chills, no fever, no abdominal pain, no nausea, no vomiting, no dysuria, no pelvic pain, no headaches, no sore throat, no back pain, no cough, no rash and no dyspareunia. There has been no history of trauma. Urine output has been normal. The last void occurred Less than 6 hours ago. She is currently Sexually active. She has 1 sexual partner. She is not . She has not missed her period. Her past medical history does not include STD or PID. There were no sick contacts. She has received no recent medical care. History reviewed. No pertinent past medical history. No past surgical history on file. ALLERGIES Patient has no known allergies. MEDICATIONS levonorgestrel (KYLEENA) 17.5 mcg/24 hrs (5 yrs) 19.5 mg IUD Take by intrauterine route. fluconazole (DIFLUCAN) 150 mg tablet Take 1 tablet by mouth once daily for 1 day. No family history on file. Social History Tobacco Use Smoking status: Never Smokeless tobacco: Never Review of Systems Constitutional: Negative for chills and fever. HENT: Negative for sore throat. Respiratory: Negative for cough. Cardiovascular: Negative for chest pain. Gastrointestinal: Negative for abdominal pain, anorexia, nausea and vomiting. Genitourinary: Positive for frequency, urgency and vaginal discharge. Negative for dyspareunia, dysuria and pelvic pain. Musculoskeletal: Negative for back pain. Skin: Negative for rash. Allergic/Immunologi c: Negative for environmental allergies, food allergies and immunocompromised state. Neurological: Negative for dizziness, facial asymmetry and headaches. Hematological: Negative for adenopathy. Does not bruise/bleed easily. Psychiatric/Behavio ral: Negative for agitation and behavioral problems. Objective BP 100/64 Pulse 77 Temp 37.3 ?C (99.2 ?F) (Tympanic) Resp 18 Wt 43.6 kg (96 lb 1.9 oz) LMP 08/18/2021 SpO2 99% Physical Exam Vitals and nursing note reviewed. Constitutional: General: She is not in acute distress. Appearance: Normal appearance. She is normal weight. She is not ill-appearing, toxic-appearing or diaphoretic. HENT: Head: Normocephalic and atraumatic. Right Ear: Ear canal and external ear normal. Left Ear: Ear canal and external ear normal. Nose: Nose normal. No congestion or rhinorrhea. Mouth/Throat: Mouth: Mucous membranes are moist. Pharynx: No oropharyngeal exudate or posterior oropharyngeal erythema. Eyes: General: Right eye: No discharge. Left eye: No discharge. Extraocular Movements: Extraocular movements intact. Conjunctiva/sclera: Conjunctivae normal. Pupils: Pupils are equal, round, and reactive to light. Cardiovascular: Rate and Rhythm: Normal rate and regular rhythm. Pulses: Normal pulses. Heart sounds: Normal heart sounds. No murmur heard. No friction rub. Pulmonary: Effort: Pulmonary effort is normal. No respiratory distress. Breath sounds: Normal breath sounds. No stridor. No wheezing, rhonchi or rales. Chest: Chest wall: No tenderness. Abdominal: General: Abdomen is flat. There is no distension. Palpations: Abdomen is soft. There is no mass. Tenderness: There is no abdominal tenderness. There is no right CVA tenderness, left CVA tenderness, guarding or rebound. Hernia: No hernia is present. Genitourinary: Comments: Declines pelvic exam Prefers self swab Musculoskeletal: General: No swelling, tenderness, deformity or signs of injury. Normal range of motion. Cervical back: Normal range of motion and neck supple. No rigidity. Righ (more content not included)... Normal [facility] UA DIP, URINE (POC)on 2023 BILIRUBIN UA (POCT) Negative Negative [place] CLARITY UA (POCT) Clear [facility] COLOR UA (POCT) Yellow [facility] GLUCOSE UA (POCT) Negative Negative mg/dL [facility] Hemoglobin Ql (U) Trace-intact Abnormal Negative [place] Interpretation and review of laboratory results Abnormal [facility] KETONE UA (POCT) Negative Negative mg/dL [facility] LEUKOCYTES UA (POCT) Negative Negative [facility] NITRITE UA (POCT) Negative Negative [facility] PH UA (POCT) 7.5 4.5 - 8.0 [facility] Protein Ql (U) Negative Negative mg/dL [facility] SPECIFIC GRAVITY UA (POCT) 1.025 1.005 - 1.030 [facility] UROBILINOGEN UA (POCT) 0.2 Normal E.U./d L [facility] Location:[facility], [address] [place] [address], [place], [place], [id number] [place] [address] POINT OF CARE [facility] INFLUENZA A&B MOLECULAR (POC )on 12-16-2023 Flu B (POCT) Positive Abnormal Negative [facility] Procedural Control Valid [facility] US RENAL AND BLADDERon 10-25 US RENAL AND BLADDER EXAMINATION: US RENAL AND BLADDER HISTORY: Pain with urination Dx: R30.9 (Pain with urination) Pt/fax Injury/Trauma or Illness?:Illness/Ot her COMPARISON: None available. FINDINGS: Sonography of both kidneys was performed. The renal echogenicity and architecture are normal bilaterally. There is no collecting system dilatation. A left inferior pole 0.4 x 0.2 cm nonobstructing renal stone is present. The right kidney measures 11.2 x 4.1 x 4.8 cm while the left kidney measures 10.6 x 5.0 x 4.3 cm. Urinary bladder is normal in contour with bilateral ureteric jets present. Bladder volume is 131 mL. Postvoid residual is 6 mL. No bladder filling defects or bladder wall thickening. IMPRESSION: 1. Solitary left inferior pole 0.4 x 0.2 cm renal stone. Otherwise normal renal ultrasound. 2. No significant postvoid residual. [employer] Software/CleanApp Workstation ID: [id number] Dictated by: MAL PERKINS on MonOct 26, 2021 9:12:16 AM EST Transcribed by: JAMIE GARCIA on MonOct 26, 2021 9:33:30 AM EST Finalized by: MAL PERKINS on MonOct 26, 2021 11:48:48 AM EST Normal [facility] Comment on above: Order Comment: Pt/fa x Injury/Trauma or Illness?:Illness/Other How long have you had these symptoms (acute/chronic)?:Chronic Reason for exam?:hx ot dysuria/ incontinence / hematuria History of cancer?:no Surgeries, chemotherapy, or radiation?:no Type of Exam?:Initial Additional signs and symptoms?:no Vital Signs Date Time Vital Sign Value Performing Clinician Facility 07-14-2025 14:57-0400 Body height 162.[address] Melissa Newsome MD Work Phone: [facility] 07-14-2025 14:57-0400 Body mass index (BMI) [Ratio] 17.2 kg/m2 Dr. Melissa Newsome MD Work Phone: [facility] 07-14-2025 14:57-0400 Body temperature 98.2 [degF] Dr. Melissa Newsome MD Work Phone: [facility] 07-14-2025 14:57-0400 Body weight 45.[address] Melissa Newsome MD Work Phone: [facility] 07-14-2025 14:57-0400 Diastolic blood pressure 72 mm[Hg] Dr. Melissa Newsome MD Work Phone: [facility] 07-14-2025 14:57-0400 Heart rate 72 /min Dr. Melissa Newsome MD Work Phone: [facility] 07-14-2025 14:57-0400 Respiratory rate 16 /min Dr. eMlissa Newsome MD Work Phone: [facility] 07-14-2025 14:57-0400 SaO2% (BldA) [Mass fraction] 98 % Dr. Melissa Newsome MD Work Phone: [facility] 07-14-2025 14:57-0400 Systolic blood pressure 108 mm[Hg] Dr. Melissa Newsome MD Work Phone: [facility] 06-19-2025 09:03-0400 Body height 162.[address] Melissa Newsome MD Work Phone: [facility] 06-19-2025 09:03-0400 Body mass index (BMI) [Ratio] 17.6 kg/m2 Dr. Melissa Newsome MD Work Phone: [facility] 06-19-2025 09:03-0400 Body weight 46.[address] Melissa Newsome MD Work Phone: [facility] 06-19-2025 09:03-0400 Diastolic blood pressure 74 mm[Hg] Dr. Melissa Newsome MD Work Phone: [facility] 06-19-2025 09:03-0400 Systolic blood pressure 111 mm[Hg] Dr. Melissa Newsome MD Work Phone: [facility] 06-16-2025 12:40-0400 Body temperature 98.2 [degF] Dr. Melissa Newsome MD Work Phone: [facility] 06-16-2025 12:40-0400 Diastolic blood pressure 53 mm[Hg] Dr. Melissa Newsome MD Work Phone: [facility] 06-16-2025 12:40-0400 Heart rate 62 /min Dr. Melissa Newsome MD Work Phone: [facility] 06-16-2025 12:40-0400 Respiratory rate 16 /min Dr. Melissa Newsome MD Work Phone: [facility] 06-16-2025 12:40-0400 SaO2% (BldA) [Mass fraction] 99 % Dr. Melissa Newsome MD Work Phone: [facility] 06-16-2025 12:40-0400 Systolic blood pressure 91 mm[Hg] Dr. Melissa Newsome MD Work Phone: [facility] 06-16-2025 10:47-0400 Body mass index (BMI) [Ratio] 17.4 kg/m2 Dr. Melissa Newsome MD Work Phone: [facility] 06-16-2025 10:47-0400 Body weight [address] Melissa Newsome MD Work Phone: [facility] 05-19-2025 15:00-0400 Body height 162.[address] Melissa Newsome MD Work Phone: [facility] 05-19-2025 15:00-0400 Body mass index (BMI) [Ratio] 17.7 kg/m2 Dr. Melissa Newsome MD Work Phone: [facility] 05-19-2025 15:00-0400 Body temperature 97.7 [degF] Dr. Melissa Newsome MD Work Phone: [facility] 05-19-2025 15:00-0400 Body weight 46.[address] Melissa Newsome MD Work Phone: [facility] 05-19-2025 15:00-0400 Diastolic blood pressure 72 mm[Hg] Dr. Melissa Newsome MD Work Phone: [facility] 05-19-2025 15:00-0400 Heart rate 82 /min Dr. Melissa Newsome MD Work Phone: [facility] 05-19-2025 15:00-0400 Respiratory rate 16 /min Dr. Melissa Newsome MD Work Phone: [facility] 05-19-2025 15:00-0400 SaO2% (BldA) [Mass fraction] 98 % Dr. Melissa Newsome MD Work Phone: [facility] 05-19-2025 15:00-0400 Systolic blood pressure 107 mm[Hg] Dr. Melissa Newsome MD Work Phone: [facility] 04-28-2025 15:14-0400 Body height 162.[address] Melissa Newsome MD Work Phone: [facility] 04-28-2025 15:14-0400 Body mass index (BMI) [Ratio] 17.7 kg/m2 Dr. Melissa Newsome MD Work Phone: [facility] 04-28-2025 15:14-0400 Body temperature 99 [degF] Dr. Melissa Newsome MD Work Phone: [facility] 04-28-2025 15:14-0400 Body weight 46.[address] Melissa Newsome MD Work Phone: [facility] 04-28-2025 15:14-0400 Diastolic blood pressure 69 mm[Hg] Dr. Melissa Newsome MD Work Phone: [facility] 04-28-2025 15:14-0400 Heart rate 76 /min Dr. Melissa Newsome MD Work Phone: [facility] 04-28-2025 15:14-0400 Respiratory rate 14 /min Dr. Melissa Newsome MD Work Phone: [facility] 04-28-2025 15:14-0400 SaO2% (BldA) [Mass fraction] 98 % Dr. Melissa Newsome MD Work Phone: [facility] 04-28-2025 15:14-0400 Systolic blood pressure 106 mm[Hg] Dr. Melissa Newsome MD Work Phone: [facility] 03-11-2025 18:27-0400 Body temperature 98.4 [degF] Fabiola Huang APRN.LEARNING CENTER INSTRUCTOR Work Phone: [facility] 03-11-2025 18:27-0400 Body weight 47.9 kg Fabiola Huang APRN.LEARNING CENTER INSTRUCTOR Work Phone: [facility] 03-11-2025 18:27-0400 Diastolic blood pressure 62 mm[Hg] Fabiola Huang APRN.LEARNING CENTER INSTRUCTOR Work Phone: [facility] 03-11-2025 18:27-0400 Heart rate 86 /min Fabiola Huang JAVA SPRING DEVELOPER.LEARNING CENTER INSTRUCTOR Work Phone: [facility] 03-11-2025 18:27-0400 Respiratory rate 16 /min Fabiola Huang JAVA SPRING DEVELOPER.LEARNING CENTER INSTRUCTOR Work Phone: [facility] 03-11-2025 18:27-0400 SaO2% (BldA) [Mass fraction] 98 % Fabiola Huang JAVA SPRING DEVELOPER.LEARNING CENTER INSTRUCTOR Work Phone: [facility] 03-11-2025 18:27-0400 Systolic blood pressure 106 mm[Hg] Fabiola Huang JAVA SPRING DEVELOPER.LEARNING CENTER INSTRUCTOR Work Phone: [facility] 03-10-2025 11:14-0400 Body height 165.[address] Melissa Newsome MD Work Phone: [facility] 03-10-2025 11:14-0400 Body mass index (BMI) [Ratio] 17.3 kg/m2 Dr. Melissa Newsome MD Work Phone: [facility] 03-10-2025 11:14-0400 Body temperature 97.2 [degF] Dr. Melissa Newsome MD Work Phone: [facility] 03-10-2025 11:14-0400 Body weight 47.[address] Melissa Newsome MD Work Phone: [facility] 03-10-2025 11:14-0400 Diastolic blood pressure 54 mm[Hg] Dr. Melissa Newsome MD Work Phone: [facility] 03-10-2025 11:14-0400 Heart rate 66 /min Dr. Melissa Newsome MD Work Phone: [facility] 03-10-2025 11:14-0400 Respiratory rate 14 /min Dr. Melissa Newsome MD Work Phone: [facility] 03-10-2025 11:14-0400 SaO2% (BldA) [Mass fraction] 99 % Dr. Melissa Newsome MD Work Phone: [facility] 03-10-2025 11:14-0400 Systolic blood pressure 106 mm[Hg] Dr. Melissa Newsome MD Work Phone: [facility] 01-13-2025 16:42-0400 Body temperature 98.49 [degF] Michelle Moomaw JAVA SPRING DEVELOPER.LEARNING CENTER INSTRUCTOR Work Phone: [facility] 01-13-2025 16:42-0400 Body weight 48 kg Michelle Moomaw JAVA SPRING DEVELOPER.LEARNING CENTER INSTRUCTOR Work Phone: [facility] 01-13-2025 16:42-0400 Diastolic blood pressure 64 mm[Hg] Michelle Moomaw JAVA SPRING DEVELOPER.LEARNING CENTER INSTRUCTOR Work Phone: [facility] 01-13-2025 16:42-0400 Heart rate 98 /min Michelle Moomaw JAVA SPRING DEVELOPER.LEARNING CENTER INSTRUCTOR Work Phone: [facility] 01-13-2025 16:42-0400 Respiratory rate 16 /min Michelle Moomaw JAVA SPRING DEVELOPER.LEARNING CENTER INSTRUCTOR Work Phone: [facility] 01-13-2025 16:42-0400 SaO2% (BldA) [Mass fraction] 98 % Michelle Moomaw JAVA SPRING DEVELOPER.LEARNING CENTER INSTRUCTOR Work Phone: [facility] 01-13-2025 16:42-0400 Systolic blood pressure 102 mm[Hg] Michelle Moomaw JAVA SPRING DEVELOPER.LEARNING CENTER INSTRUCTOR Work Phone: [facility] 07-30-2024 12:31-0500 Body temperature 98.2 [degF] Gregory Clutter PA-C Work Phone: [facility] 07-30-2024 12:31-0500 Body weight 43.5 kg Gregory Clutter PA-C Work Phone: [facility] 07-30-2024 12:31-0500 Diastolic blood pressure 62 mm[Hg] Gregory Clutter PA-C Work Phone: [facility] 07-30-2024 12:31-0500 Heart rate 70 /min Gregory Clutter PA-C Work Phone: [facility] 07-30-2024 12:31-0500 Respiratory rate 16 /min Gregory Clutter PA-C Work Phone: [facility] 07-30-2024 12:31-0500 SaO2% (BldA) [Mass fraction] 99 % Gregory Clutter PA-C Work Phone: [facility] 07-30-2024 12:31-0500 Systolic blood pressure 96 mm[Hg] Gregory Clutter PA-C Work Phone: [facility] 05-08-2024 17:53-0400 Body temperature 99.19 [degF] Maria Greer JAVA SPRING DEVELOPER.LEARNING CENTER INSTRUCTOR Work Phone: [facility] 05-08-2024 17:53-0400 Body weight 43.6 kg Maria Greer JAVA SPRING DEVELOPER.LEARNING CENTER INSTRUCTOR Work Phone: [facility] 05-08-2024 17:53-0400 Diastolic blood pressure 64 mm[Hg] Maria Greer JAVA SPRING DEVELOPER.LEARNING CENTER INSTRUCTOR Work Phone: [facility] 05-08-2024 17:53-0400 Heart rate 77 /min Maria Greer JAVA SPRING DEVELOPER.LEARNING CENTER INSTRUCTOR Work Phone: [facility] 05-08-2024 17:53-0400 Respiratory rate 18 /min Maria Greer JAVA SPRING DEVELOPER.LEARNING CENTER INSTRUCTOR Work Phone: [facility] 05-08-2024 17:53-0400 SaO2% (BldA) [Mass fraction] 99 % Maria Greer JAVA SPRING DEVELOPER.LEARNING CENTER INSTRUCTOR Work Phone: [facility] 05-08-2024 17:53-0400 Systolic blood pressure 100 mm[Hg] Maria Greer JAVA SPRING DEVELOPER.LEARNING CENTER INSTRUCTOR Work Phone: [facility] 12-16-2023 13:27-0400 Body temperature 101.89 [degF] [employer] JAVA SPRING DEVELOPER.LEARNING CENTER INSTRUCTOR Work Phone: [facility] 12-16-2023 13:27-0400 Body weight 45.1 kg [employer] JAVA SPRING DEVELOPER.LEARNING CENTER INSTRUCTOR Work Phone: [facility] 12-16-2023 13:27-0400 Diastolic blood pressure 78 mm[Hg] [facility] [facility] JAVA SPRING DEVELOPER.LEARNING CENTER INSTRUCTOR Work Phone: [facility] 12-16-2023 13:27-0400 Heart rate 79 /min [employer] JAVA SPRING DEVELOPER.LEARNING CENTER INSTRUCTOR Work Phone: [facility] 12-16-2023 13:27-0400 Respiratory rate 18 /min [facility] JAVA SPRING DEVELOPER.LEARNING CENTER INSTRUCTOR Work Phone: [facility] 12-16-2023 13:27-0400 SaO2% (BldA) [Mass fraction] 97 % [facility] JAVA SPRING DEVELOPER.LEARNING CENTER INSTRUCTOR Work Phone: [facility] 12-16-2023 13:27-0400 Systolic blood pressure 112 mm[Hg] [facility] [facility] JAVA SPRING DEVELOPER.LEARNING CENTER INSTRUCTOR Work Phone: [facility] Encounters Encounter Date Encounter Type Care Provider Facility Start: 07-14-2025 End: 07-14-2025 Patient encounter procedure Mary GALINDO -[facility] Work Phone: Start: 07-14-2025 End: 07-14-2025 ambulatory Melissa Newsome Facility:[facility] Start: 07-02-2025 Encounter for other preprocedural examination Mike Alarcon [facility] Start: 06-19-2025 End: 06-19-2025 Patient encounter procedure Jaz GALINDO -Laboratory Specimen Work Phone: Start: 06-19-2025 End: 06-19-2025 Patient encounter procedure Jaz GALINDO -[facility] Work Phone: Start: 06-19-2025 End: 06-19-2025 Patient encounter status Jaz GALINDO [facility] Start: 06-19-2025 End: 06-19-[address] Melissa Newsome MD Work Phone: -[facility] Start: 06-19-2025 End: 06-19-2025 ambulatory Melissa Newsome Facility:[facility] Start: 06-16-2025 Non-patient / Non-visit Mike Pfeiffer nd DO -[facility] Start: 06-16-2025 End: 06-16-2025 Admission to same day surgery center Mike Alarcon DO -Endoscopy Work Phone: Start: 06-16-2025 End: 06-16-[address] Melissa Newsome MD Work Phone: -Endoscopy Start: 06-02-2025 End: 06-02-[address] Melissa Newsome MD Work Phone: -Ultrasound [facility] Start: 06-02-2025 End: 06-02-2025 Patient encounter procedure Mary GALINDO -[facility] Work Phone: Start: 06-02-2025 End: 06-02-2025 ambulatory Mary Chauhan Facility:[facility] Start: 05-19-2025 End: 05-19-2025 Patient encounter procedure Mary GALINDO -[facility] Work Phone: Start: 05-19-2025 End: 05-19-[address] Melissa Newsome MD Work Phone: [facility] Start: 04-28-2025 End: 04-28-2025 Patient encounter procedure Mary GALINDO -[facility] Work Phone: Start: 04-28-2025 End: 04-28-[address] Melissa Newsome MD Work Phone: -[facility] Start: 04-28-2025 End: 04-28-2025 ambulatory Mary Chauhan Facility:[facility] Start: 03-13-2025 End: 05-13-2025 Follow-up encounter Stormy Hernandez APRN.CNP Work Phone: [facility] Start: 03-11-2025 End: 03-11-2025 Patient encounter procedure Fabiola Sal JAVA SPRING DEVELOPER.LEARNING CENTER INSTRUCTOR Work Phone: [facility] Comment on above: Acute midline low ba ck pain without sciatica (Primary Dx); Pelvic pain Start: 03-11-2025 End: 03-11-2025 ambulatory [facility] Facility:[facility] Start: 03-10-2025 End: 03-10-[address] Melissa Newsome MD -[facility] Work Phone: Start: 03-10-2025 End: 03-10-[address] Melissa Newsome MD Work Phone: [facility] Work Phone: Start: 03-10-2025 End: 03-10-2025 ambulatory Melissa Gordillolay Facility:[facility] Start: 01-28-2025 End: 01-28-2025 Emergency department patient visit PHYSICIAN [facility] Start: 01-13-2025 End: 01-13-2025 Patient encounter procedure [facility] JAVA SPRING DEVELOPER.LEARNING CENTER INSTRUCTOR Work Phone: [facility] Comment on above: Urinary frequency (P rimary Dx) Start: 01-13-2025 End: 01-13-2025 ambulatory [facility] Facility:[facility] Start: 07-30-2024 End: 07-30-2024 Office outpatient new 30 minutes Gregory Be PA-C Work Phone: [facility] Comment on above: Urinary frequency (P rimary Dx); Acute UTI Start: 07-30-2024 End: 07-30-2024 ambulatory [facility] Facility:[facility] Start: 05-10-2024 ambulatory Maria Greer JAVA SPRING DEVELOPER.LEARNING CENTER INSTRUCTOR Work Phone: [facility] Comment on above: Results Start: 05-10-2024 E-mail encounter fro m caregiver Maria Greer JAVA SPRING DEVELOPER.LEARNING CENTER INSTRUCTOR Work Phone: [facility] Start: 05-08-2024 End: 05-08-2024 ambulatory [facility] Facility:[facility] Start: 05-08-2024 End: 05-08-2024 Patient encounter procedure Maria Greer JAVA SPRING DEVELOPER.LEARNING CENTER INSTRUCTOR Work Phone: [facility] Comment on above: Urinary frequency (P rimary Dx); Vaginal discharge Start: 12-16-2023 End: 12-16-2023 Office outpatient visit 15 minutes [employer] JAVA SPRING DEVELOPER.LEARNING CENTER INSTRUCTOR Work Phone: [facility] Comment on above: Fever, unspecified f ever cause (Primary Dx); Influenza B Start: 10-04-2022 End: 10-04-2022 ambulatory WILFREDO ALVA [facility] Start: 10-04-2022 End: 10-04-2022 Encounter for gynecological examination (general) (routine) without abnormal findings MARLON GARCIA TRAYLOR [facility] Start: 03-10-2022 ambulatory JESSIE W MONICA Facility :[facility] Start: 03-03-2022 ambulatory WILFREDO LANA Facility :[facility] Start: 03-01-2022 End: 03-01-2022 ambulatory JESSIE W MONICA Facility:[facility] Start: 02-25-2022 ambulatory JESSIE W MONICA Facility :[facility] Start: 11-04-2021 ambulatory JESSIE W MONICA Facility :[facility] Start: 10-25-2021 End: 10-26-2021 ambulatory WILFREDO Kyle ALVA [facility] Start: 09-20-2021 ambulatory JESSIE W MONICA Facility :[facility] Start: 09-02-2021 ambulatory JESSIE W MONICA Facility :[facility] Procedures Date Procedure Procedure Detail Performing Clinician Start: 06-19-2025 Liquid based cervical cytology screening Dr. Melissa Newsome MD Work Phone: Comment on above: NEGATIVE FOR INTRAEPITHELIAL LESION OR M ALIGNANCY.THIS SPECIMEN WAS RESCREENED PART OF OUR SERVICE REPRESENTATIVE PROGRAM. This liquid based Th inPrep(R) pap test was screened withthe use of an image guided system. The HPV DNA reflex c riteria were not met with this specimenresult therefore, no HPV testing was performed.Performed at: [address] [id number] Director: Martita Jordan MD, Phone: [phone] Start: 06-16-[address] Melissa bowman MD Work Phone: Start: 06-02-[address] Melissa bowman MD Work Phone: Start: 03-11-2025 Urnls dip stick/tablet rgnt auto w/o microscopy Maria Greer JAVA SPRING DEVELOPER.LEARNING CENTER INSTRUCTOR Work Phone: Start: 03-10-[address] Melissa Newsome MD Work Phone: Comment on above: Performed at: - [facility] [id number] Director: Chano Calvo PhD, Phone: [phone] at: - [facility] [id number] Director: Ru Briseno MD, Phone: [phone] Start: 03-10-2025 Antibody to centromere measurement Dr. Gertrudis Newsome MD Work Phone: Comment on above: Test not performed Previous reported re sult: TNP AIEdited by: INFCE on 03/14/25:2306 AMENDED REPORT 03/14/252306 ANTI-CENT B previously reported as: Test not performed Start: 03-10-2025 Antibody to extractable nuclear antigen measurement Dr. Melissa Newsome MD Work Phone: Comment on above: Test not performed Previous reported re sult: TNP AIEdited by: INFCE on 03/14/25:7 AMENDED REPORT 03/14/252306 HOUGH Ab previously reported as: Test not performed Start: 03-10-2025 Antibody to MECHE-[address] Melissa Newsome MD Work Phone: Comment on above: Test not performed Previous reported re sult: TNP AIEdited by: INFCE on 03/14/25:2307 AMENDED REPORT 03/14/252306 ANTI-MECHE previously reported as: Test not performed Start: 03-10-2025 Antibody to lupus La protein measurement Dr. Melissa Newsome MD Work Phone: Start: 03-10-2025 Antibody to SS-A measurement Dr. Melissa Newsmoe MD Work Phone: Start: 03-10-[address] Melissa aranda MD Work Phone: Comment on above: Test not performed Previous reported re sult: TNP AIEdited by: EMILIE on 03/14/25:2307 AMENDED REPORT 03/14/252306 ANTICHROMATIN previously reported as: Test not performed Start: 03-10-[address] Melissa Newsome MD Work Phone: Start: 03-10-2025 Endomys[address] antibody IgA level Dr. Melissa Newsome MD Work Phone: Start: 03-10-[address] Melissa Newsome MD Work Phone: Start: 03-10-2025 CORPORATE TRAINING MANAGER antibody measurement Dr. Melissa aranda MD Work Phone: Comment on above: Test not performed Previous reported re sult: TNP AIEdited by: EMILIE on 03/14/25:2307 AMENDED REPORT 03/14/252306 CORPORATE TRAINING MANAGER Ab previously reported as: Test not performed Start: 03-10-[address] Melissa Newsome MD Work Phone: Start: 03-10-2025 Vitamin D, 25-hydroxy measurement Dr. Yamil ROME Work Phone: Comment on above: Vitamin D StatusDeficiency: <20 ng/mL (5 0nmol/L)Insufficiency: 20-30 ng/mL (50-75 nmol/L)Sufficiency: 30-100 ng/mL (75-250 nmol/L)Toxicity: >100 ng/mL (>250 nmol/L) Start: 01-13-2025 Culture bacterial quanttative colony count urine Michelle Moomaw JAVA SPRING DEVELOPER.LEARNING CENTER INSTRUCTOR Work Phone: Start: 01-13-2025 Urnls dip stick/tablet rgnt auto w/o microscopy Stormy Hernandez JAVA SPRING DEVELOPER.LEARNING CENTER INSTRUCTOR Work Phone: Start: 07-30-2024 Urnls dip stick/tablet rgnt auto w/o microscopy Stormy Hernandez JAVA SPRING DEVELOPER.LEARNING CENTER INSTRUCTOR Work Phone: Start: 05-08-2024 Urnls dip stick/tablet rgnt auto w/o microscopy Maria Shelby JAVA SPRING DEVELOPER.LEARNING CENTER INSTRUCTOR Work Phone: Start: 12-16-2023 INFLUENZA A&B MOLECULAR (POC) [employer] JAVA SPRING DEVELOPER.LEARNING CENTER INSTRUCTOR Work Phone: Plan of Treatment Date Care Activity Detail Author Start: 06-27-2032 Urine microalbumin profile DTa P,Tdap,Td Vaccine (7 - Td or Tdap) [facility] Start: 09-28-2025 Screening for malign ant neoplasm of cervix [facility] Start: 06-19-2025 Liquid based cervica l cytology screening [facility] Start: 06-19-2025 Patient encounter procedure Registered Clinical -Laboratory Specimen Work Phone: Start: 06-19-2025 End: 06-19-2025 Patient encounter procedure Irregular menses -[facility] Work Phone: Start: 06-16-2025 Egd transoral biopsy single/multiple EGD BIOPSY SINGLE/MULTIPLE [facility] Start: 06-16-[address] Patient [address] [facility] Start: 05-26-2025 Influenza vaccination [facility] Start: 05-08-2025 GC (Gonorrhea) Scree britton (18-24) GC (Gonorrhea) Screening () [facility] Start: 05-08-2025 Screening for Chlamy mary trachomatis Chlamydia Screening () [facility] Start: 03-10-[address] [facility] Work Phone: Start: 03-10-2025 CBC W Auto Different ial panel - Blood [facility] Start: 03-10-2025 Celiac disease screen [facility] Start: 03-10-2025 Comprehensive metabo lic 2000 panel - Serum or Plasma [facility] Start: 03-10-2025 Nuclear Ab [Presence ] in Serum [facility] Start: 03-10-2025 Thyroid stimulating hormone measurement [facility] Start: 03-10-2025 Vitamin D, 25-hydrox y measurement [facility] Start: 03-10-2025 [facility] Start: 05-26-2024 Covid-19 Vaccine ( season) Covid-19 Vaccine ( season) [facility] Start: 05-26-2024 Influenza vaccination Influenza Vacc ine (#1) [facility] Start: 09-25-2023 Depression Assessment Depression Ass essment [facility] Start: 05-26-2023 Covid-19 Vaccine ( season) Covid-19 Vaccine ( season) [facility] Start: 05-26-2023 Influenza vaccination Influenza Vacc ine (#1) [facility] Start: 2019 Anxiety Screening Anxiety Screening [facility] Start: 2019 Depression Screening Depression Scre ening [facility] Start: 2019 GC (Gonorrhea) Scree britton () GC (Gonorrhea) Screening () [facility] Start: 2019 Hepatitis C screening Hepatitis C Sc reening [facility] Start: 2019 HIV screening HIV Screening [facility] Start: 2019 Screening for Chlamy mary trachomatis Chlamydia Screening () [facility] Start: 2017 Meningococcal B Vacc ine (1 of 2 - Standard) Meningococcal B Vaccine (1 of 2 - Standard) [facility] Start: 2017 Meningococcal B Vacc ine: Consider Based On Risk (1 of 2 - Patient Seeks Protection) Meningococcal B Vaccine: Consider Based On Risk (1 of 2 - Patient Seeks Protection) [facility] Start: 2016 HPV Vaccine (1 - 3-d ose series) HPV Vaccine (1 - 3-dose series) [facility] Start: 2015 Peds To Adult Transi tion Annual Assessment Peds To Adult Transition Annual Assessment [facility] Start: 2013 Peds To Adult Transi tion Initial Discussion Peds To Adult Transition Initial Discussion [facility] Start: 09-12-2002 Hepatitis B Vaccine (3 of 3 - 3-dose series) Hepatitis B Vaccine (3 of 3 - 3-dose series) [facility] Alanine aminotransfe rase [Enzymatic activity/volume] in Serum or Plasma [facility] Albumin [Mass/volume ] in Serum or Plasma [facility] Alkaline phosphatase [Enzymatic activity/volume] in Serum or Plasma [facility] Anion gap in Serum o r Plasma [facility] Antibody to lupus La protein measurement [facility] Antibody to SS-A measurement [facility] Bacteria identified in Urine by Culture URINE CULTURE Microbiology Routine Urinary frequency Ordered: 05/08/2024 [facility] Work Phone: Comment on above: Ordered: 05/08/2024 Bacteria identified in Urine by Culture URINE CULTURE Microbiology Routine Acute UTI 07/30/2024 12:39 PM EST [facility] Work Phone: Bacteria identified in Urine by Culture BACTERIAL CULTURE, URINE Microbiology Routine Acute midline low back pain without sciatica Pelvic pain 03/11/2025 7:24 PM EDT [facility] Work Phone: BACTERIAL VAGINOSIS NAAT BACTERI AL VAGINOSIS NAAT Lab Routine Vaginal discharge Ordered: 05/08/2024 [facility] Comment on above: Ordered: 05/08/2024 Beef IgE Ab [Units/v olume] in Serum [facility] Bilirubin, total measurement [facility] BUN/Creatinine ratio [facility] Calcium [Mass/volume ] in Serum or Plasma [facility] BELEN/TRICHOMONAS NAAT BELEN /TRICHOMONAS NAAT Lab Routine Vaginal discharge Ordered: 05/08/2024 [facility] Comment on above: Ordered: 05/08/2024 Carbon dioxide, tota l [Moles/volume] in Central venous blood [facility] CBC W Auto Different ial panel - Blood [facility] Chlamydia trachomatis+Neisseria gonorrhoeae DNA [Presence] in Unspecified specimen by CJ with probe detection GONORRHEA/CHLAMYDIA NAAT Lab Routine Vaginal discharge Ordered: 05/08/2024 [facility] Comment on above: Ordered: 05/08/2024 Chocolate IgE Ab [Units/volume] in Serum [facility] Codfish IgE Ab [Units/volume] in Serum [facility] Cumberland IgE Ab [Units/v olume] in Serum [facility] Cow milk IgE Ab [Units/volume] in Serum [facility] Creatinine [Mass/vol ume] in Serum or Plasma [facility] DNA double strand Ab [Units/volume] in Serum [facility] Erythrocyte mean corpuscular volume determination [facility] Food RAST [facility] Glucose [Mass/volume ] in Serum or Plasma [facility] Hematocrit [Volume Fraction] of Blood [facility] Hemoglobin [Mass/vol ume] in Blood [facility] IgA [Mass/volume] in Serum or Plasma [facility] Leukocytes [#/volume ] in Blood [facility] Mean corpuscular hemoglobin concentration determination [facility] Mean corpuscular hemoglobin determination [facility] Measurement of renal function [facility] Neutrophil count [facility] Neutrophil percent differential count [facility] Path report.final Dx Spec [facility] Patient referral [facility] Work Phone: Peanut IgE Ab [Units/volume] in Serum [facility] Platelets [#/volume] in Blood [facility] Pork IgE Ab [Units/v olume] in Serum [facility] Potassium measurement [facility] Red blood cell count [facility] Red cell distributio n width determination [facility] Mccool IgE Ab [Units/volume] in Serum [facility] Serum chloride measurement [facility] Shrimp IgE Ab [Units/volume] in Serum [facility] Sodium measurement [facility] Soybean IgE Ab [Units/volume] in Serum [facility] Tissue transglutamin ase IgA Ab [Units/volume] in Serum [facility] Total protein measurement [facility] Tuna IgE Ab [Units/v olume] in Serum [facility] Urea nitrogen [Mass/volume] in Serum or Plasma [facility] US Abdomen limited [facility] Wheat IgE Ab [Units/volume] in Serum [facility] Whole Egg IgE Ab [Units/volume] in Serum [facility] Immunizations Immunization Date Immunization Notes Care Provider Fa [facility] 06-27-2022 Influenza, injectabl e, Madin Vesuvius Canine Kidney, preservative free, quadrivalent Dr. Melissa Newsome MD Work Phone: [facility] 06-27-2022 tetanus toxoid, reduced diphtheria toxoid, and acellular pertussis vaccine, adsorbed Dr. Melissa Newsome MD Work Phone: [facility] 06-27-2022 influenza virus vaccine, unspecified formulation [employer] Bl[employer]quita DELGADO Work Phone: [facility] 09-15-2021 Influenza, injectabl e, Madin Arlene Canine Kidney, preservative free, quadrivalent Dr. Melissa Newsome MD Work Phone: [facility] 12-22-2020 Covid ([place]) Dr. Melissa Newsome MD Work Phone: [facility] 09-14-2009 novel [id number], preservative-free, injectable Dr. Melissa Newsome MD Work Phone: [facility] 07-18-2002 haemophilus influenz ae type b conjugate and Hepatitis B vaccine Dr. Melissa Newsome MD Work Phone: [facility] 07-18-2002 influenza, injectabl e, quadrivalent, preservative free Dr. Melissa Newsome MD Work Phone: [facility] 04-18-2002 measles, mumps and rubella virus vaccine Dr. Melissa Newsome MD Work Phone: [facility] 04-18-2002 poliovirus vaccine, inactivated Dr. Melissa Newsome MD Work Phone: [facility] 04-18-2002 tetanus toxoid, reduced diphtheria toxoid, and acellular pertussis vaccine, adsorbed Dr. Melissa Newsome MD Work Phone: [facility] 2001 diphtheria, tetanus toxoids and acellular pertussis vaccine Dr. Melissa Newsome MD Work Phone: [facility] 2001 haemophilus influenz ae type b vaccine, PRP-T conjugate Dr. Meilssa Newsome MD Work Phone: [facility] 2001 pneumococcal conjuga te vaccine, [address] Melissa Newsome MD Work Phone: [facility] 2001 diphtheria, tetanus toxoids and acellular pertussis vaccine Dr. Melissa Newsome MD Work Phone: [facility] 2001 haemophilus influenz ae type b vaccine, PRP-T conjugate Dr. Melissa Newsome MD Work Phone: [facility] 2001 pneumococcal conjuga te vaccine, [address] Melissa Newsome MD Work Phone: [facility] 2001 poliovirus vaccine, inactivated Dr. Melissa Newsome MD Work Phone: [facility] 2001 diphtheria, tetanus toxoids and acellular pertussis vaccine Dr. Melissa Newsome MD Work Phone: [facility] 2001 haemophilus influenz ae type b conjugate and Hepatitis B vaccine Dr. Melissa Newsome MD Work Phone: [facility] 2001 pneumococcal conjuga te vaccine, [address] Melissa Newsome MD Work Phone: [facility] 2001 poliovirus vaccine, inactivated Dr. Melissa Newsome MD Work Phone: [facility] Payers Date Payer Category Payer Self-pay 2023 Private Health Insurance [id number] 2023 Private Health Insurance [id number] 2015 Unknown [id number] 2001 Unknown [id number] 2.16. [id number] 2001 Unknown [id number] 2.16. [id number] 2001 Unknown [id number] 2.16. [id number] 2001 Unknown [id number] 2.16. [id number] 2001 Unknown [id number] 2.16. [id number] 2001 Unknown [id number] 2.16. [id number] 2001 Unknown [id number] 2.16. [id number] 2001 Unknown [id number] 2.16. [id number] 2001 Unknown [id number] 2.16. [id number] 2001 Unknown [id number] 2.16. [id number] Unknown [id number] Unknown [id number] [id number] [id number] Unknown [id number] 216.8 [id number] Unknown [id number] 2.16.8 [id number] Unknown [id number] 216.8 [id number] Unknown [id number] 2.16.8 [id number] Unknown [id number] 2.16.8 [id number] Unknown [id number] 2.16.8 [id number] Unknown [id number] 2.16.8 [id number] Unknown [id number] 2.16.8 [id number] Unknown [id number] 2.16.8 [id number] Unknown [id number] 2.16.8 [id number] Social History Date Type Detail Facility Start: 12-16-2023 End: 07-14-2025 Tobacco smoking status NHIS Never smoked tobacco [facility] Start: 12-16-2023 Tobacco use and exposure Smokeless tobacco non-user [facility] Start: 12-16-2023 End: 07-30-2024 History of Social function [facility] Start: 12-16-2023 End: 07-30-2024 Tobacco use panel [facility] Start: 2001 Sex Assigned At Not on file [facility] Start: 03-10-2025 Tobacco smoking stat us TXIS Ex-smoker (finding) [facility] Start: 2001 Sex Assigned At Female [facility] Sexual Orientation Heterosexual (finding) [facility] Start: 02-26-2014 Sex Female [facility] Goals Date Patient Goal Desired Activity /State Mental Status Date Assessment Result Facility 06-16-2025 Cognitive function Level Of Consciousness Drowsy [facility] Work Phone: Clinical Notes 12-16-2023 to 07-14-2025 Note Date & Type Note Facility 07-14-2025 Progress note [facility] 07-14-2025 Progress note Note Date/Time July 14, 2025 4:55pm [facility] [address] [place] [address] OFFICE VISIT Date of Service: 07/14/25 MR#: [id number] Acct: [id number] Name: EDISON PUENTE Rep #: [id number] : 2000 Provider: JOSIE Chauhan Age/Sex: 25/F Location: [facility] [place] Status: Signed Intake Vital Signs 05/19/25 15:00 06/19/25 09:03 07/14/25 14:57 Height 5 ft 4 in 5 ft 4 in 5 ft 4 in Weight: 103 lb 3 oz 100 lb 6 oz BMI 17.6 17.2 BP 111/74 108/72 Respiration 16 Pulse 72 Temp 98.2 F Temp Source Temporal Pulse Oximetry (%) 98 Oxygen Delivery Method room air Intake Visit Reasons: F/u Abdominal cramping Chief Complaint: 3 week follow-up Entertainment Dancer Required: No Accompanied by: Self Is patient in pain?: Yes Pain scale (1-10): 3 Allergies Beef Containing Products Adverse Reaction (Severe, Verified 07/14/25 14:58) Upset Stomach Milk Containing Products (Dairy) Adverse Reaction (Severe, Verified 07/14/25 14:58) Upset Stomach Medications ?Medication ?Instructions ?Recorded ?Confirmed ?Type levonorgestrel 17.5 mcg/24 hr (up 1 device intrauterin e ONCE 06/19/25 07/14/25 History to 5 yrs) 19.5mg intrauterine device (Kyleena) lubiprostone 8 mcg capsule 8 mcg PO BID #60 caps 07/1407/14/25 Rx (Amitiza) sucralfate 1 gram tablet (Carafate) 1 g PO QAC 2 weeks #42 tabs 07/14/25 07/14/25 Rx PFSH Medical History Contraceptive management History of steroid therapy Anemia Back pain Gastric reflux Non-smoker COVID Mononucleosis Depression Surgical History Hx of tonsillectomy H/O wisdom tooth extraction Family History Mother Hyperlipidemia Endometriosis Father Heart disease Hypertension Grandmother Breast cancer Grandmother Diabetes Aunt Diabetes Social History adopted: No household members: significant other and family number of children: 0 current occupational status: employed 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 pets and animals: Yes (3) pets and animals: cat(s) sexually active: Yes Smoking Status: Never smoker Tobacco: How many years used: 1 how long ago did patient quit smokin alcohol intake: never substance use type: does not use caffeine: Yes (1) Type: coffee what type of physical activity do you participate in: walking frequency: daily seatbelt use: always do you feel safe at home: Yes HPI HPI Chief Complaint: 3 week follow-up Details: - has not noticed any difference avoiding beef and dairy - Linzess - did not have a BM for a week and caused abdomnal pain - stopped pantoprazole after 1 week also - ABD US showed fatty liver - 100lbs and BMI 17.2% The patient is a 25-year-old female presenting with persistent constipation and epigastric pain as the primary concerns. She reports epigastric tenderness, heartburn, and has been experiencing intervals of constipation lasting up to a week and a half, with minimal bowel movement characterized by small, hard stool.Constipation has not improved with Linzess, which she discontinued due to severeabdominal discomfort post-ingestion. She has a past medical history of nausea and vomiting, partially resolving with pantoprazole 40 mg daily, which she has since stopped. She also previously notedepigastric, left upper quadrant pain following exposure to a possible food allergen, with no clear improvement upon dietary adjustments. Current dietary intake includes minimized consumption of beef and dairy. Recent stool testing returned negative for acute infection, but positive for exotogenic E. coli, which is not being treated due to absence of severe diarrheasymptoms. She underwent upper endoscopy on 06/16, revealing gastric and duodenal inflammation consistent with mild gastritis, with biopsies negative for Malone's esophagus and H. pylori infection. Liver ultrasound on 06/02 indicated fatty liver without discrete lesions, raising a potential concern for lean NAFLD, despite patient denying any alcohol consumption and maintaining a low body weight, historically fluctuating but recently noted at 100 pounds. ROS Const Constitutional: Positive for fatigue; No fever(s) or weight change ENT ENT: No difficulty swallowing Gastro GI: Positive for abdominal pain, bloating, constipation, diarrhea and nausea/dyspepsia; No belching, change in bowel habits, change in stool character, coffee ground emesis, cramping, heartburn, difficulty swallowing, feeling full early, excessive flatus, incontinent of stools, Vomiting blood/hematemesis, Blood in stool, loose stools, Black,tarry stools, pain with swallowing, vomiting or other Musc Musculoskeletal: Positive for sciatica; No joint pain Skin Skin: No yellowing of the eye or itchy eyes Psych Psychiatric: No anxiety and No depression Endo Endocrine: Positive for fatigue; No weight change Aller/Imm Allergy/Immunologic: No itchy eyes Christiano/Lymp Hematologic/Lymphatic: No easy bleeding or easy bruising ROS Narrative - Gastrointestinal: Reports epigastric pain, constipation, heartburn, nausea, vomiting. Denies diarrhea. - Respiratory: Denies cough or difficulty breathing. - Neurological: Denies headaches or dizziness. - General: Reports weight loss. - Allergic/Immunologic: Reports previous avoidance of beef and dairy due to potential allergen. Exam Const General: cooperative, healthy appearing, no acute distress and well developed Nutritional Appearance: well nourished and thin Orientation: alert and oriented x3 HENMT Head: normocephalic Ears: hearing grossly normal bilaterally Mouth: moist mucous membranes Teeth and gingiva: dentition normal Eyes Conjunctivae: conjunctivae normal Sclera: sclerae normal Neck Neck: normal visual inspection, full ROM and trachea midline Resp Effort & Inspection: normal respiratory effort, able to speak in complete sentences and symmetric chest movement GI Inspection: normal to inspection Auscultation: normal bowel sounds Palpation: soft and no hepatosplenomegaly Rectal Exam: deferred Other: epigastric tenderness Skin General: no rashes or lesions noted and turgor normal Neuro General: patient alert and patient oriented x3 Cranial Nerves: other (CN's grossly intact, non-focal exam) Cognition: normal cognition Speech: speech normal Gait: normal gait Extrem General: normal to inspection (no edema noted) Psych Appearance: grossly normal and well kempt Affect: normal affect Attitude: cooperative Thought Process: normal Assessment and Plan Assessment and Plan (1) Epigastric pain: Status: Acute (2) Constipation: Status: Acute Medications: New sucralfate (Carafate) 1 g PO QAC 42 tabs 0RF [address] Mckeon Friend, DO lubiprostone (Amitiza) 8 mcg PO BID 60 caps 1RF Mary Chauhan NP-Robert Discontinued sucralfate (Carafate) Discontinued Reason: By Stop Date 1 g PO TID 2 weeks 42 tabs 0RF Plan 25-year-old female with a history of gastritis and fatty liver noted on ABD US, presenting with persistent constipation and epigastric pain. Despite previous interventions including Linzess, the patient's constipation persists. Mild gastritis evident from recent endoscopy may contribute to her abdominal discomfort. Lean NAFLD, as noted on ultrasound, is considered given her low bodyweight and lack of alcohol consumption, though further evaluation with Fibroscanis advised to confirm fat accumulation. Positive exotogenic E. coli is considered colonization in absence of significant diarrheal symptoms. Careful consideration is needed in optimizing management given past intolerance to Linzess and recent dietary changes. Patient Instructions: 1. Start Carafate as previously prescribed post EGD 2. Start Amitiza 8 mcg once a day and titrate to twice a day as tolerated 3. Schedule FibroScan as recommended at [facility] for fatty liver noted onultrasound 4. Call in 1 week with symptom update Please call [facility] at [phone] to schedule your FibroScan. [facility] is located at: [address] [place] [address], [place] [address] [facility] is currently providing free FibroScans. A FibroScan is a painless, non-invasive assessment of the liver. This test is used to measure thestiffness of liver tissue (fibrosis) as well as liver fat (steatosis). FibroScanrequires no sedation of any kind, it is very similar to an Ultrasound. You should not have anything to eat or drink 3 hours prior to your FibroScan. You should not have any alcohol for 3 days prior to your FibroScan. For the procedure, you will lie on your back with your right arm raised behind your head, and your right abdominal area exposed (wear loose fitting clothing). During the exam, you may feel a slight vibration on the skin at the tip of the probe as it delivers ultrasound waves to the area for measuring purposes. Coding Level of Care Code Off vis,est,level 4 Diagnoses Epigastric pain R10.13 Constipation K59.00 Clinical Quality Measures Smoking Screening Smoking Status: Never smoker 07/14/25 4548 <Electronically signed by Mary GALINDO> Date _ Mary GALINDO Cosigner Signature: Date (if applicable) CC: ~ [facility] Work Phone: [phone] [phone] [facility] [address] [place] [address], [address] [place] [id number] OFFICE VISIT Date of Service: 06/19/25 MR#: [id number] Acct: [id number] Name: EDISON PUENTE Rep #: [id number] : 2000 Provider: JOSIE Ramos Age/Sex: 25/F [place] [facility] [place] Signed Intake Vital Signs 12/10/21 22:20 06/16/25 10:47 06/19/25 09:03 Height 5 ft 4 in 5 ft 4 in 5 ft 4 in Weight: 103 lb 3 oz BMI 17.6 BP 111/74 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: No Is patient in pain?: Yes Pain scale (1-10): 6 Allergies Beef Containing Products Adverse Reaction (Severe, Verified 06/19/25 09:04) Upset Stomach Milk Containing Products (Dairy) Adverse Reaction (Severe, Verified 06/19/25 09:04) Upset Stomach Medications ?Medication ?Instructions ?Recorded ?Confirmed ?Type levonorgestrel 17.5 mcg/24 hr (up 1 device intrauterin e ONCE 06/19/25 06/19/25 History to 5 yrs) 19.5mg intrauterine device (Kyleena) Is last menstrual period known: Yes Last Menstrual Period: 06/16/25 Post menopausal: No Patient : No : No Control Method: kyleena [facility] Medical History History of steroid therapy Anemia Back pain Gastric reflux Non-smoker COVID Mononucleosis Depression Surgical History Hx of tonsillectomy H/O wisdom tooth extraction Family History (Updated 06/19/25 @ 09:19 by JOSIE Sosa) Mother Hyperlipidemia Endometriosis Father Heart disease Hypertension Grandmother Breast cancer Grandmother Diabetes Aunt Diabetes Social History adopted: No household members: significant other and family number of children: 0 current occupational status: employed 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 pets and animals: Yes (3) pets and animals: cat(s) sexually active: Yes Smoking Status: Never smoker Tobacco: How many years used: 1 how long ago did patient quit smokin alcohol intake: never substance use type: does not use caffeine: Yes (1) Type: coffee what type of physical activity do you participate in: walking frequency: daily seatbelt use: always do you feel safe at home: Yes History 0 Elective abortions Hx Para Spontaneous abortions Hx # Term Pregnancies Ectopic pregnancies Hx # Pregnancies Multiple births # of living children HPI Encounter for routine gynecological examination Details: EDISON PUENTE is a 25 year old who presents for annual exam. She is here to establish care; has Kyleena in place--placed 2020. She had this placed due to extremely heavy periods. She had an ultrasound completed in [place] and was told she had adenomyosis. She reports for the last year she has noticed irregular bleeding; she will have instances of 3 day bleeds then stops and restarts soon after. She is sexually active. She reports no concerns for std's; 1 partner. Last PAP: 2021; normal per pt. History of abnormal PAP: no Last mammogram: age 41 History of abnormal mammogram: n/a Colon cancer screening: age 46--follows with Dr. Alarcon for gastro. Other preventative health care screenings: Dr. Newsome; PCP Female Reproductive History Last Menstrual Period: 06/16/25 Questions: metrorrhagia: No, sexually active: Yes, dyspareunia: No and PCB: No ROS Const Constitutional: Denies chills, fatigue, fever(s), headache(s) or weight loss Eyes Eyes: Denies change in vision ENT ENT: Denies dizziness Cardio Card: Denies chest pain at rest or palpitations Resp Resp: Denies cough or dyspnea GI GI: Denies abdominal pain, constipation or nausea : Denies difficulty voiding, dysuria, hematuria, nipple discharge, pelvic pain, prolapse symptoms, urinary incontinence, vaginal discharge, vaginal dryness, vaginal odor or vaginal pruritus Skin Skin/Breast: Denies alopecia, rash, breast mass, breast pain, breast skin changes or nipple discharge Neuro Neuro: Denies dizziness Psych Psych: Denies anxiety or depression Endo Endo: Denies cold intolerance, excessive sweating or heat intolerance Exam Const General: cooperative, healthy appearing, comfortable, no acute distress, well groomed and well hydrated Nutritional Appearance: well nourished Orientation: alert, awake and oriented x3 HENMT Head: normal to inspection and normocephalic Ears: hearing grossly normal bilaterally and external ears normal Nose: external nose normal Face and sinus: normal facial exam Eyes General: appearance normal, both eyes and all related structures Neck Neck: normal visual inspection, full ROM and no lymphadenopathy Thyroid: thyroid normal Chest Chest palpation & inspection: normal inspection of the chest Breast inspection: normal inspection of the breasts and normal inspection of theaxillae Breast palpation: normal palpation of the breasts, normal palpation of the axillae and no axillary lymphadenopathy Resp Effort & Inspection: normal respiratory effort, able to speak in complete sentences and symmetric chest movement GI Inspection: normal to inspection Palpation: soft and no hepatosplenomegaly General: bladder normal to palpation External Female Exam: normal external appearance and normal appearance of the urethra Urethra: normal appearance of the urethra Speculum Exam - Vagina: normal appearance of the vagina, normal vaginal discharge, no lesions and nontender Speculum Exam - Cervix: normal appearance of the cervix (strings at cervical os;menses present. ), no lesions and no masses Bimanual Exam- Vagina & Uterus: normal bimanual exam, uterine size normal, bladder normal to palpation, normal palpation and non-tender Bimanual Exam- Adnexa, other: normal adnexae, no masses, normal and non-tender Pelvic Support: normal Skin General: no rashes or lesions noted Neuro General: patient alert, patient awake, patient oriented x3 and moves all extremities Psych Appearance: grossly normal Mental Status: mental status grossly normal Affect: normal affect Speech and Movement: speech and movement normal Attitude: cooperative Coding Level of Care Code New Pt Off vis,new,prev 18-39yrs Patient Type New Diagnoses Encounter for routine gynecological examination Z01.419 Irregular menses N92.6 Assessment and Plan Assessment and Plan (1) Encounter for routine gynecological examination: Plan: Breast and pelvic exam complete. PAP due: completed today Mammogram due: routine screenings age 41 Advised self breast exams monthly. Contraception: kyleena IUD; placed 2020. Advised incorporating healthy dietary choices such as increase in lean meats, fruits/vegetables, less processed food/sat fat/trans fats. Increase exercise to 30 minutes per day/5 days a week. This can include both weight bearing exercisesand/or brisk walking. Follow up with PCP for further preventative health screenings. Follow up 1 year for repeat annual family partner exam. Call office sooner with questions or concerns. (2) Irregular menses: Status: Acute Plan: Would like to switch out IUD early. RTO to have this completed. Will need to choose which IUD she would like to proceed with as our office does not insert kyleena. Orders: Orders PAP I-G w/rfx hrHPV-Aptima Today Z12.4 - Encounter for screening for malignant neoplasm of cervix 06/19/25 1121 n MANAGER EDUCATION-C> Date _ Jaz Ramos MANAGER EDUCATION-C Cosigner Signature: Date (if applicable) CC: ~ [facility]09-22-2025 Consult note [facility] Medical Records Department [address] [place] [address] Anesthesia Postop Eval II 06/16/25 1304 MR#: [id number] Acct: [id number] Name: EDISON PUENTE Rep #:[id number] : 2000 25 From: Everardo Hernandez MD PCP: Dr. Melissa Newsome MD Status:REG SDC Y Race: C Location: [place] [address] Anesthesia Postop Eval I Sum Postop Eval Completion status Anesthesia document: Postop Eval 1 completed: Yes Anesthesia Postop Eval I Summary Anesthesia Postop Eval I Summary: Anesthesia Postop Eval I: Assessment Summary Airway patent Yes 06/16/25 12:32 [email or web address] Spontaneous unlabored Yes 06/16/25 12:32 [email or web address] respirations Mental status Asleep 06/16/25 12:32 [email or web address] nausea No 06/16/25 12:32 [email or web address] Vomiting No 06/16/25 12:32 [email or web address] Anesthesia Postop Eval I: Fluid Summary Crystalloid volume administer 400 06/16/25 12:32 [email or web address] (ml) Colloids volume administered ( ml) Blood Product volume administered (ml) Total IV fluid infused 400 06/16/25 12:32 [email or web address] Anesthesia Postop Eval I: Summary Notes Anesthesia Complication No 06/16/25 12:32 [email or web address] Anesthesia Complication Comment: Post-operative progress note Anesthesia: Postop Eval II Evaluation Mental status: Awake Pain Level: 0 nausea: No Vomiting: No 06/16/25 1304 > Date _ Everardo Hernandez MD Cosigner Signature: Date CC: ~ Signed [facility]09-22-2025 Procedure note [facility] Medical Records Department [address] [place] [address] EGD Report MR#: [id number] Acct: [id number] Name: EDISON PUENTE Rep #:[id number] : 2000 25 From: Mike Alarcon DO PCP: Dr. Melissa Newsome MD Status:[facility] Patient Name: Edison Puente Procedure Date: 06/16/2025 11:59 AM Date of : 2000 Age: 25 Procedure: Upper GI endoscopy Indications: Epigastric abdominal pain, Functional Dyspepsia, Indigestion, Heartburn Providers: Mike Alarcon DO Referring MD: Melissa Newsome Md Medicines: Monitored Anesthesia Care Patient Profile: This is a 25 year old female. Refer to note in patient chart for documentation of history and physical. Patient has symptoms of acute epigastric abdominal pain. Complications: No immediate complications. Procedure: Pre-Anesthesia Assessment: - Prior to the procedure, a History and Physical was performed, and patient medications and allergies were reviewed. The patient is competent. The risks and benefits of the procedure and the sedation options and risks were discussed with the patient. All questions were answered and informed consent was obtained. Patient identification and proposed procedure were verified by the physician in the pre-procedure area. Mental Status Examination: alert and oriented. Airway Examination: normal oropharyngeal airway and neck mobility. Respiratory Examination: clear to auscultation. CV Examination: normal. Prophylactic Antibiotics: The patient does not require prophylactic antibiotics. Prior Anticoagulants: The patient has taken no anticoagulant or antiplatelet agents except for NSAID medication. ASA Grade Assessment: II - A patient with mild systemic disease. After reviewing the risks and benefits, the patient was deemed in satisfactory condition to undergo the procedure. The anesthesia plan was to use monitored anesthesia care (MAC). Immediately prior to administration of medications, the patient was re-assessed for adequacy to receive sedatives. The heart rate, respiratory rate, oxygen saturations, blood pressure, adequacy of pulmonary ventilation, and response to care were monitored throughout the procedure. The physical status of the patient was re-assessed after the procedure. After obtaining informed consent, the endoscope was passed under direct vision. Throughout the procedure, the patient's blood pressure, pulse, and oxygen saturations were monitored continuously. The Endoscope was introduced through the mouth, and advanced to the third part of the duodenum. Small bowel enteroscopy was deemed necessary. The upper GI endoscopy was accomplished without difficulty. The patient tolerated the procedure well. Scope In: 12:07:03 PM Scope Out: 12:11:51 PM Total Procedure Duration Time 0 hours 4 minutes 48 seconds Findings: The Z-line was irregular and was found 39 cm from the incisors. Biopsies were taken with a cold forceps for histology. Verification of patient identification for the specimen was done. Estimated blood loss was minimal. Patchy mildly erythematous mucosa without bleeding was found in the gastric body. Biopsies were taken with a cold forceps for histology. Verification of patient identification for the specimen was done. Estimated blood loss was minimal. Biopsies were taken with a cold forceps for Helicobacter pylori testing. Verification of patient identification for the specimen was done. Estimated blood loss was minimal. Patchy mildly erythematous mucosa without active bleeding and with no stigmata of bleeding was found in the entire duodenum. Biopsies were taken with a cold forceps for histology. Verification of patient identification for the specimen was done. Estimated blood loss was minimal. Impression: - Z-line irregular, 39 cm from the incisors. Biopsied. - Erythematous mucosa in the gastric body. Biopsied. - Erythematous duodenopathy. Biopsied. Recommendation: - Discharge patient to home. - Resume previous diet. - Continue present medications. Procedure Code(s): --- Professional --- 58895, Small intestinal endoscopy, enteroscopy beyond second portion of duodenum, not including ileum; with biopsy, single or multiple CPT copyright 2021 [employer]. All rights reserved. The codes documented in this report are preliminary and upon green end department supervisor review may be revised to meet current compliance requirements. Mike Alarcon DO 06/16/2025 12:17:43 PM This report has been signed electronically. Number of Addenda: 0 Note Initiated On: 06/16/2025 11:59 AM 06/16/25 1217 Date _ Mike Alarcon DO Cosigner Signature: Date (if indicated) CC: Dr. Melissa Newsome MD; Mike Alarcon DO ~ Date Dictated: 06/16/25 1159 Date Transcribed: Airline Stewardess: RF Signed [facility]09-22-2025 Procedure note [facility] Medical Records Department [address] [place] [address] Provation Physician Letter MR#: [id number] Acct: [id number] Name: EDISON PUENTE Rep #:[id number] : 2000 25 From: Mike Alarcon DO PCP: Dr. Melissa Newsome MD Status:[facility] [place] 06/16/2025 Melissa Newsome Md Re : Upper GI endoscopy procedure for Edison Puente Dear Jerod This procedure was performed on Monday, June 16, 2025. My impressions and recommendations are as follows: Impressions : - Z-line irregular, 39 cm from the incisors. Biopsied. - Erythematous mucosa in the gastric body. Biopsied. - Erythematous duodenopathy. Biopsied. Recommendations : - Discharge patient to home. - Resume previous diet. - Continue present medications. My findings are described in the full procedure note, which is enclosed. If I can be of further assistance, please feel free to contact me at . Sincerely, Mike Alarcon DO 06/16/2025 12:17:43 PM This report has been signed electronically. 06/16/25 1218 Date _ Mike Alarcon DO Cosigner Signature: Date (if indicated) CC: Dr. Melissa Newsome MD; Mike Alarcon DO ~ Date Dictated: 06/16/25 1159 Date Transcribed: Airline Stewardess: RF Signed [facility]09-22-2025 History and physical note Author Mike Alarcon [facility] Note Date/Time June 16, 2025 10:33am [facility] Medical Records Department [address] [place] [address] History & Physical Exam 06/16/25 1031 MR#: [id number] Acct: [id number] Name: EDISON PUENTE Rep #:[id number] : 2000 25 From: Mike Alarcon DO PCP: Dr. Melissa Newsome MD Status:[facility] Location: [place] [address] HPI - General General Date of Admission: 06/16/25 Date of Service: 06/16/25 Chief Complaint: abdominal pain HPI Narrative 25-year-old female with a history of chronic abdominal pain, nausea, and possible lactose intolerance presenting with worsening symptoms over the last two years. The patient's clinical presentation suggests potential gastrointestinal pathology such as gastroesophageal reflux disease (GERD) or peptic ulcer disease, especially given the report of black stools indicative of possible upper gastrointestinal bleeding. Further complications may be attributed to a complex interplay of factors including dietary allergies, previous ovarian cysts, and underlying adenomyosis. Suspected constipation and overflow diarrhea may contribute to her current symptomatology due to fecal retention observed in prior imaging. CBC today H. pylori stool Pantoprazole 40mg once daily - Begin pantoprazole only after completing stool test. - Follow dietary restrictions for identified food allergies. - Drink plenty of fluids to help with bowel regularity. - Collect stool sample as per provided instructions and call [employer] for collection. - Schedule follow-up appointment in three weeks to review test results and progress. - Visit the lab today for blood work and contact us if you have any concerns or questions. - Address any unusual symptoms, such as continued black stools or increased pain, with immediate medical consultation. Please advise patient stool testing is negative for acute infection and calprotectin is normal. Stool was positive for Enterotoxigenic Escherichia coli (ETEC); however, this is not something that we treat unless patient are experiencing severe watery diarrhea. This is likely colonized with calprotectin being normal. 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 [facility] Medical History History of steroid therapy Anemia Back pain Gastric reflux Non-smoker COVID Mononucleosis Depression Allergy/AdvReac Type Severity Reaction Status Date / Time Beef Containing Products AdvReac Severe Upset Verified 06/11/25 09:19 Stomach Milk Containing Products AdvReac Severe Upset Verified 06/11/25 09:19 (Dairy) Stomach Family History Mother Hyperlipidemia Father Heart disease Hypertension Grandmother Breast cancer Grandmother Diabetes Aunt Diabetes Surgical History Hx of tonsillectomy H/O wisdom tooth extraction Social History adopted: No household members: significant other and family number of children: 0 current occupational status: employed 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 pets and animals: Yes (3) pets and animals: cat(s) sexually active: Yes Smoking Status: Never smoker Tobacco: How many years used: 1 how long ago did patient quit smokin alcohol intake: never substance use type: does not use caffeine: Yes (1) Type: coffee what type of physical activity do you participate in: walking frequency: daily do you feel safe at home: Yes ROS Constitutional Constitutional: Denies fatigue, fever(s), poor appetite, weight gain or weight loss Gastrointestinal Gastrointestinal: Denies belching, bloating, change in bowel habits, change in stool character, chewing difficulty, coffee ground emesis, constipation, cramping, diarrhea, dyspepsia, dysphagia, early satiety, excessive flatus, fecalincontinence, heartburn, hematemesis, hematochezia, hemorrhoids, loose stools, melena, nausea, odynophagia, rectal bleeding, tenesmus, vomiting or weight changes Physical Exam Const alert, oriented x3, no apparent distress and healthy appearing General Appearance: cooperative GI normal to inspection, nondistended, normoactive bowel sounds, soft to palpation,non-tender and non-distended Percussion: normal to percussion Rectal Exam: deferred Assessment & Plan Assessment/Plan (1) Abdominal cramping: (2) LLQ pain: (3) Nausea: PLAN: Assessment and Plan Assessment and Plan (1) Epigastric pain: Status: Acute (2) Nausea: Status: Acute (3) LLQ pain: Status: Acute (4) Abdominal cramping: Status: Acute Orders: Orders Abdomen Limited Today R10.13 - Epigastric pain, R10.32 - Left lower quadrant pain, R11.0 - Nausea Medications: New linaclotide (Linzess) take once daily 30 minutes before breakfast every morning 145 mcg PO QAM 90 caps 1RF Plan 25-year-old female presents for 3-week follow-up of epigastric and LLQ abdominalpain, nausea, and vomiting. Stool testing is negative for acute infection and calprotectin is normal. Stool was positive for Enterotoxigenic Escherichia coli (ETEC); however, this is not something that we treat unless patient are experiencing severe watery diarrhea. This is likely colonized with calprotectin being normal. She denies any improvement in her gastrointestinal symptoms with avoiding food allergens. She has noted an improvement in nausea and near resolution of emesis with pantoprazole 40 mg once daily. However, she does continue to experience epigastric tenderness and heartburn. She denies any use of nonsteroidal medications in the past month. She is continuing to experience of bloating and constipation, reporting going up to a week without a bowel movement. She has increased her oral intake, now eating at least 2 meals daily. Her weight is stable. I have scheduled her for an abdominal ultrasound and EGD. She will continue pantoprazole daily and start Linzess 145 mcg once daily. She will follow-up in 3 weeks. Plan Details Follow Up: 3 Weeks 06/16/25 1033 <Electronically signed by Mike Alarcon DO> Cosigner Signature (if applicable): CC: Dr. Melissa Newsome MD; Mike Alarcon DO~ Signed [facility] Work Phone: 1(895) 854-510209-22-2025 Consult note [facility] Medical Records Department [address] [place] [id number] Anesthesia Postop Eval I 06/16/25 1231 MR#: [id number] Acct: [id number] Name: EDISON PUENTE Rep #:[id number] : 2000 25 From: Kyle Phillips PCP: Dr. Melissa Newsome MD Status:REG SDC Y Race: C Location: [place] [address] Anesthesia: Postop Eval I Current Vital Signs Temperature: 97.9 F Pulse Rate: 61 Blood Pressure: 89/53 Respiratory Rate: 16 Pulse Ox: 97 Oxygen Delivery Method: Room Air Assessment Airway patent: Yes Spontaneous unlabored respirations: Yes Mental status: Asleep nausea: No Vomiting: No Anesthesia Complication: No Fluid Hydration Crystalloid volume administer (ml): 400 Total IV fluid infused: 400 Progress Note Anesthesia document: Postop Eval 1 completed: Yes 06/16/25 1232 > Date _ Kyle Claros Signature: Date CC: ~ Signed [facility]09-22-2025 Consult note Author Everardo Hernandez [facility] Note Date/Time June 16, 2025 10:31am [facility] Medical Records Department [address] [place] [address] Pre-Anesthesia Evaluation 06/16/25 1030 MR#: [id number] Acct: [id number] Name: EDISON PUENTE IRVING Rep #:[id number] : 2000 25 From: Everardo Hernandez MD PCP: Dr. Melissa Newsome MD Status:REG SD Y Race: C Location: [place] [address] ASA Classification* ASA Classification ASA Classification: 2 Assessment & Plan Anesthesia* Anesthesia Assessment Anesthesia Assessment: Discussed sedation and/or anesthesia options, risks, benefits, and alternatives with patient/parents/legal guardian/POA. Questions invited. The patient/parents/legal guardian/POA seems to understand and agrees to proceedwith anesthesia plan. Reviewed the physical assessment, medical history, allergy history and patient home medications list prior to surgery/procedure/anesthetic and documented any changes. Performed airway and anesthesia risk assessments. Anesthesia Type Anesthesia Type: MAC Anesthesia Focused Assessment* Airway Assessment Mouth opens: >3 cm Mallampati Score: II Labs Anesthesia Preop lab: CBC WBC, (4.4-11.0) 6.2 K/mm3 04/28/25, 16:00 RBC, (4.2-5.4) 4.68 M/mm3 04/28/25, 16:00 Hgb, (12.0-15.0) 14.1 g/dL 04/28/25, 16:00 Hct, (37-47) 41.3 % 04/28/25, 16:00 Plt Count, (150-450) 311 K/mm3 04/28/25, 16:00 CHEMISTRY Potassium, (3.3-5.1) 4.0 mmol/L 03/10/25, 11:49 Sodium, (133-145) 139 mmol/L 03/10/25, 11:49 BUN, (4-19) 11 mg/dL 03/10/25, 11:49 Creatinine, (0.70-1.20) 0.71 mg/dL 03/10/25, 11:49 Glucose, (70-99) 92 mg/dL 03/10/25, 11:49 TSH, (0.300-4.200) 2.570 uIU/mL 03/10/25, 11:49 COAG Pre-Assessment Diagnosis/Proposed Procedure Planned Operative Procedure(s): EGD Anesthesia History Anesthesia History - vp communications: Anesthesia History - vp communications Hx Hospitalization No 06/11/25 09:25 Any Problems With Anesthesia No 06/11/25 09:25 Cholinesterase deficiency No 06/11/25 09:25 You/Your Family Experience No 06/11/25 09:25 fever (hyperthermia) with Relationship Recent Exposure to Contagious Disease Does patient have nerve No 06/11/25 09:25 stimulator Patient instructed to have device shut off --Does patient have Pacemaker or ICD? When Was Last Pacemaker Check QUESTION #4 FULL TEXT: You/Your Family Experience fever (hyperthermia) with Anesthesia Last Oral Intake Last Oral intake: Last Oral Intake NPO since Meds taken in AM with sips of water? Meds patient instructed to take am of surgery PONV PONV - vp communications: PONV - vp communications Female Yes 06/11/25 09:25 HX of Motion Sickness No 06/11/25 09:25 HX of N/V After Surgery No 06/11/25 09:25 Non-Smoker Yes 06/11/25 09:25 Duration of Surgery greater No 06/11/25 09:25 than 60 minutes Number of Risk Factors 2 06/11/25 09:25 PONV Score Moderate Risk 06/11/25 09:25 Height & Weight Height & Weight: Anesthesia: Height & Weight Height 5 ft 4 in 05/19/25 15:00 Respiratory Assessment Respiratory Assessment - vp communications: Respiratory Tract Infection Hx - vp communications Hx Respiratory Tract Infection No 06/11/25 09:25 STOP Sleep Apnea STOP Sleep Apnea - vp communications: STOP Sleep Apnea - vp communications Hx Hypertension No 06/11/25 09:25 Hx Sleep Apnea No 06/11/25 09:25 CPAP BIPAP Do you snore loudly (louder No 06/11/25 09:25 than talking or can be heard Do you often feel tired/ No 06/11/25 09:25 fatigued/ sleepy during daytime? Has anyone observed you stop No 06/11/25 09:25 breathing during sleep? STOP Results Negative 06/11/25 09:25 QUESTION #5 FULL TEXT : Do you snore loudly (louder than talking or can be heard through closed doors)? 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 Specify any problems Hx of Preganancy in last 3 No 06/11/25 09:25 Months Nurse Filling Out Transfusion VCHRISTIN 06/11/25 09:25 & Questions: Date: 06/11/25 06/11/25 09:25 Time: :06/11/25 09:25 Patient unable to answer at this time (ie. confused, unrespo /Reproduction History /Reproductive History - vp communications: /Reproductive Hx- vp communications Hx Now No 06/11/25 09:25 Gestational Age (in weeks): EDC: Hx Hx Para Hx Section SAB No 06/11/25 09:25 PFSH Medical History History of steroid therapy Anemia Back pain Gastric reflux Non-smoker COVID Mononucleosis Depression Allergy/AdvReac Type Severity Reaction Status Date / Time Beef Containing Products AdvReac Severe Upset Verified 06/11/25 09:19 Stomach Milk Containing Products AdvReac Severe Upset Verified 06/11/25 09:19 (Dairy) Stomach Family History Mother Hyperlipidemia Father Heart disease Hypertension Grandmother Breast cancer Grandmother Diabetes Aunt Diabetes Surgical History Hx of tonsillectomy H/O wisdom tooth extraction Social History adopted: No household members: significant other and family number of children: 0 current occupational status: employed 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 06/16/25 1031 <Electronically signed by Everardo Hernandez MD > Date _ Everardo Hernandez MD Cosigner Signature: Date CC: ~ Signed [facility] Work Phone: 1(642) 691-211209-22-2025 History and physical note [facility] Medical Records Department [address] [place] [address] History & Physical Exam 06/16/25 1031 MR#: [id number] Acct: [id number] Name: EDISON PUENTE Rep #:[id number] : 2000 25 From: Mike Friend DO PCP: Dr. Melissa Newsome MD Status:REG [facility] Location: [place] [address] HPI - General General Date of Admission: 06/16/25 Date of Service: 06/16/25 Chief Complaint: abdominal pain HPI Narrative 25-year-old female with a history of chronic abdominal pain, nausea, and possible lactose intolerance presenting with worsening symptoms over the last two years. The patient's clinical presentation suggests potential gastrointestinal pathology such as gastroesophageal reflux disease (GERD) or peptic ulcer disease, especially given the report of black stools indicative of possible upper gastrointestinal bleeding. Further complications may be attributed to a complex interplay of factors includingdietary allergies, previous ovarian cysts, and underlying adenomyosis. Suspected constipation and overflow diarrhea may contribute to her current symptomatology due to fecal retention observed in prior imaging. CBC today H. pylori stool Pantoprazole 40mg once daily - Begin pantoprazole only after completing stool test. - Follow dietary restrictions for identified food allergies. - Drink plenty of fluids to help with bowel regularity. - Collect stool sample as per provided instructions and call [employer] for collection. - Schedule follow-up appointment in three weeks to review test results and progress. - Visit the lab today for blood work and contact us if you have any concerns or questions. - Address any unusual symptoms, such as continued black stools or increased pain, with immediate medical consultation. Please advise patient stool testing is negative for acute infection and calprotectin is normal. Stool was positive for Enterotoxigenic Escherichia coli (ETEC); however, this is not something that we treat unless patient are experiencing severe watery diarrhea. This is likely colonized with calprotectin being normal. 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 [facility] Medical History History of steroid therapy Anemia Back pain Gastric reflux Non-smoker COVID Mononucleosis Depression Allergy/AdvReac Type Severity Reaction Status Date / Time Beef Containing Products AdvReac Severe Upset Verified 06/11/25 09:19 Stomach Milk Containing Products AdvReac Severe Upset Verified 06/11/25 09:19 (Dairy) Stomach Family History Mother Hyperlipidemia Father Heart disease Hypertension Grandmother Breast cancer Grandmother Diabetes Aunt Diabetes Surgical History Hx of tonsillectomy H/O wisdom tooth extraction Social History adopted: No household members: significant other and family number of children: 0 current occupational status: employed 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 pets and animals: Yes (3) pets and animals: cat(s) sexually active: Yes Smoking Status: Never smoker Tobacco: How many years used: 1 how long ago did patient quit smokin alcohol intake: never substance use type: does not use caffeine: Yes (1) Type: coffee what type of physical activity do you participate in: walking frequency: daily do you feel safe at home: Yes ROS Constitutional Constitutional: Denies fatigue, fever(s), poor appetite, weight gain or weight loss Gastrointestinal Gastrointestinal: Denies belching, bloating, change in bowel habits, change in stool character, chewing difficulty, coffee ground emesis, constipation, cramping, diarrhea, dyspepsia, dysphagia, earlysatiety, excessive flatus, fecalincontinence, heartburn, hematemesis, hematochezia, hemorrhoids, loose stools, melena, nausea, odynophagia, rectal bleeding, tenesmus, vomiting or weight changes Physical Exam Const alert, oriented x3, no apparent distress and healthy appearing General Appearance: cooperative GI normal to inspection, nondistended, normoactive bowel sounds, soft to palpation,non-tender and non-distended Percussion: normal to percussion Rectal Exam: deferred Assessment & Plan Assessment/Plan (1) Abdominal cramping: (2) LLQ pain: (3) Nausea: PLAN: Assessment and Plan Assessment and Plan (1) Epigastric pain: Status: Acute (2) Nausea: Status: Acute (3) LLQ pain: Status: Acute (4) Abdominal cramping: Status: Acute Orders: Orders Abdomen Limited Today R10.13 - Epigastric pain, R10.32 - Left lower quadrant pain, R11.0 - Nausea Medications: New linaclotide (Linzess) take once daily 30 minutes before breakfast every morning 145 mcg PO QAM 90 caps 1RF Plan 25-year-old female presents for 3-week follow-up of epigastric and LLQ abdominalpain, nausea, and vomiting. Stool testing is negative for acute infection and calprotectin is normal. Stool was positive for Enterotoxigenic Escherichia coli (ETEC); however, this is not something that we treat unless pa tient are experiencing severe watery diarrhea. This is likely colonized with calprotectin being normal. She denies any improvement in her gastrointestinal symptoms with avoiding food allergens. She has noted an improvement in nausea and near resolution of emesis with pantoprazole 40 mg once daily. However, she does continue to experience epigastric tenderness and heartburn. She denies any use of nonsteroidal medications in the past month. She is continuing to experience of bloating and constipation, reporting going up to a week without a bowel movement. She has increased her oral intake, now eating at least 2 meals daily. Her weight is stable. I have scheduled her for an abdominal ultrasound and EGD. She will continue pantoprazole daily and start Linzess 145 mcg once daily. She will follow-up in 3 weeks. Plan Details Follow Up: 3 Weeks 06/16/25 1033 Cosigner Signature (if applicable): CC: Dr. Melissa Newsome MD; Mike Friend, DO~ Signed [facility]09-22-2025 Consult note [facility] Medical Records Department [address] [place] [address] Pre-Anesthesia Evaluation 06/16/25 1030 MR#: [id number] Acct: [id number] Name: EDISON PUENTE Rep #:[id number] : 2000 25 From: Everardo Hernandez MD PCP: Dr. Melissa Newsome MD Status:REG SDC Y Race: C Location: [facility] ASA Classification* ASA Classification ASA Classification: 2 Assessment & Plan Anesthesia* Anesthesia Assessment Anesthesia Assessment: Discussed sedation and/or anesthesia options, risks, benefits, and alternatives with patient/parents/legal guardian/POA. Questions invited. The patient/parents/legal guardian/POA seems to understand and agrees to proceedwith anesthesia plan. Reviewed the physical assessment, medical history, allergy history and patient home medications list prior to surgery/procedure/anesthetic and documented any changes. Performed airway and anesthesia risk assessments. Anesthesia Type Anesthesia Type: MAC Anesthesia Focused Assessment* Airway Assessment Mouth opens: >3 cm Mallampati Score: II Labs Anesthesia Preop lab: CBC WBC, (4.4-11.0) 6.2 K/mm3 04/28/25, 16:00 RBC, (4.2-5.4) 4.68 M/mm3 04/28/25, 16:00 Hgb, (12.0-15.0) 14.1 g/dL 04/28/25, 16:00 Hct, (37-47) 41.3 % 04/28/25, 16:00 Plt Count, (150-450) 311 K/mm3 04/28/25, 16:00 CHEMISTRY Potassium, (3.3-5.1) 4.0 mmol/L 03/10/25, 11:49 Sodium, (133-145) 139 mmol/L 03/10/25, 11:49 BUN, (4-19) 11 mg/dL 03/10/25, 11:49 Creatinine, (0.70-1.20) 0.71 mg/dL 03/10/25, 11:49 Glucose, (70-99) 92 mg/dL 03/10/25, 11:49 TSH, (0.300-4.200) 2.570 uIU/mL 03/10/25, 11:49 COAG Pre-Assessment Diagnosis/Proposed Procedure Planned Operative Procedure(s): EGD Anesthesia History Anesthesia History - vp communications: Anesthesia History - vp communications Hx Hospitalization No 06/11/25 09:25 Any Problems With Anesthesia No 06/11/25 09:25 Cholinesterase deficiency No 06/11/25 09:25 You/Your Family Experience No 06/11/25 09:25 fever (hyperthermia) with Relationship Recent Exposure to Contagious Disease Does patient have nerve No 06/11/25 09:25 stimulator Patient instructed to have device shut off --Does patient have Pacemaker or ICD? When Was Last Pacemaker Check QUESTION #4 FULL TEXT: You/Your Family Experience fever (hyperthermia) with Anesthesia Last Oral Intake Last Oral intake: Last Oral Intake NPO since Meds taken in AM with sips of water? Meds patient instructed to take am of surgery PONV PONV - vp communications: PONV - vp communications Female Yes 06/11/25 09:25 HX of Motion Sickness No 06/11/25 09:25 HX of N/V After Surgery No 06/11/25 09:25 Non-Smoker Yes 06/11/25 09:25 Duration of Surgery greater No 06/11/25 09:25 than 60 minutes Number of Risk Factors 2 06/11/25 09:25 PONV Score Moderate Risk 06/11/25 09:25 Height & Weight Height & Weight: Anesthesia: Height & Weight Height 5 ft 4 in 05/19/25 15:00 Respiratory Assessment Respiratory Assessment - vp communications: Respiratory Tract Infection Hx - vp communications Hx Respiratory Tract Infection No 06/11/25 09:25 STOP Sleep Apnea STOP Sleep Apnea - vp communications: STOP Sleep Apnea - vp communications Hx Hypertension No 06/11/25 09:25 Hx Sleep Apnea No 06/11/25 09:25 CPAP BIPAP Do you snore loudly (louder No 06/11/25 09:25 than talking or can be heard Do you often feel tired/ No 06/11/25 09:25 fatigued/ sleepy during daytime? Has anyone observed you stop No 06/11/25 09:25 breathing during sleep? STOP Results Negative 06/11/25 09:25 QUESTION #5 FULL TEXT : Do you snore loudly (louder than talking or can be heard through closeddoors)? 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 Specify any problems Hx of Preganancy in last 3 No 06/11/25 09:25 Months Nurse Filling Out Transfusion VCHRISTIN 06/11/25 09:25 & Questions: Date: 06/11/25 06/11/25 09:25 Time: 09:06/11/25 09:25 Patient unable to answer at this time (ie. confused, unrespo /Reproduction History /Reproductive History - vp communications: /Reproductive Hx- vp communications Hx Now No 06/11/25 09:25 Gestational Age (in weeks): EDC: Hx Hx Para Hx Section SAB No 06/11/25 09:25 PFSH Medical History History of steroid therapy Anemia Back pain Gastric reflux Non-smoker COVID Mononucleosis Depression Allergy/AdvReac Type Severity Reaction Status Date / Time Beef Containing Products AdvReac Severe Upset Verified 06/11/25 09:19 Stomach Milk Containing Products AdvReac Severe Upset Verified 06/11/25 09:19 (Dairy) Stomach Family History Mother Hyperlipidemia Father Heart disease Hypertension Grandmother Breast cancer Grandmother Diabetes Aunt Diabetes Surgical History Hx of tonsillectomy H/O wisdom tooth extraction Social History adopted: No household members: significant other and family number of children: 0 current occupational status: employed 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 06/16/25 1031 > Date _ Everardo Claros Signature: Date CC: ~ [facility]igned [facility] [facility]25 [facility] Medical Records Department [address] [place] [address] History Physical Exam 06/16/25 1031 MR#: [id number] Acct: [id number] Name: CINDIEDISONMARTINEZ VILLATORO Rep #: [id number] : 2000 25 From: Mike Alarcon DO PCP: Dr. Melissa Newsome MD Status:[facility] Location: [place] [address] HPI - General General Date of Admission: 06/16/25 Date of Service: 06/16/25 Chief Complaint: abdominal pain HPI Narrative 25-year-old female with a history of chronic abdominal pain, nausea, and possible lactose intolerance presenting with worsening symptoms over the last two years. The patient's clinical presentation suggests potential gastrointestinal pathology such as gastroesophageal reflux disease (GERD) or peptic ulcer disease, especially given the report of black stools indicative of possible upper gastrointestinal bleeding. Further complications may be attributed to a complex interplay of factors including dietary allergies, previous ovarian cysts, and underlying adenomyosis. Suspected constipation and overflow diarrhea may contribute to her current symptomatology due to fecal retention observed in prior imaging. CBC today H. pylori stool Pantoprazole 40mg once daily - Begin pantoprazole only after completing stool test. - Follow dietary restrictions for identified food allergies. - Drink plenty of fluids to help with bowel regularity. - Collect stool sample as per provided instructions and call [employer] for collection. - Schedule follow-up appointment in three weeks to review test results and progress. - Visit the lab today for blood work and contact us if you have any concerns or questions. - Address any unusual symptoms, such as continued black stools or increased pain, with immediate medical consultation. Please advise patient stool testing is negative for acute infection and calprotectin is normal. Stool was positive for Enterotoxigenic Escherichia coli (ETEC); however, this is not something that we treat unless patient are experiencing severe watery diarrhea. This is likely colonized with calprotectin being normal. 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 [facility] Medical History History of steroid therapy Anemia Back pain Gastric reflux Non-smoker COVID Mononucleosis Depression Allergy/AdvReac Type Severity Reaction Status Date / Time Beef Containing Products AdvReac Severe Upset Verified 06/11/25 09:19 Stomach Milk Containing Products AdvReac Severe Upset Verified 06/11/25 09:19 (Dairy) Stomach Family History Mother Hyperlipidemia Father Heart disease Hypertension Grandmother Breast cancer Grandmother Diabetes Aunt Diabetes Surgical History Hx of tonsillectomy H/O wisdom tooth extraction Social History adopted: No household members: significant other and family number of children: 0 current occupational status: employed 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 pets and animals: Yes (3) pets and animals: cat(s) sexually active: Yes Smoking Status: Never smoker Tobacco: How many years used: 1 how long ago did patient quit smokin alcohol intake: never substance use type: does not use caffeine: Yes (1) Type: coffee what type of physical activity do you participate in: walking frequency: daily do you feel safe at home: Yes ROS Constitutional Constitutional: Denies fatigue, fever(s), poor appetite, weight gain or weight loss Gastrointestinal Gastrointestinal: Denies belching, bloating, change in bowel habits, change in stool character, chewing difficulty, coffee ground emesis, constipation, cramping, diarrhea, dyspepsia, dysphagia, early satiety, excessive flatus, fecal incontinence, heartburn, hematemesis, hematochezia, hemorrhoids, loose stools, melena, nausea, odynophagia, rectal bleeding, tenesmus, vomiting or weight changes Physical Exam Const alert, oriented x3, no apparent distress and healthy appearing General Appearance: cooperative GI normal to inspection, nondistended, normoactive bowel sounds, soft to palpation, non-tender and non- distended Percussion: normal to percussion Rectal Exam: deferred Assessment Plan Assessment/Plan (1) Abdominal cramping: (2) LLQ pain: (3) Nausea: P (more content not included)...[facility]09-08-2025 Radiology Diagnostic study note [facility] Imaging Services [address] [place] [address] Abdomen Limited MR#: [id number] Acct: [id number] Name: EDISON PUENTE Rep #: [id number] : 2000 F 25 From: Garcia Simon MD PCP: Dr. Melissa Newsome MD Status: REG CLI Study:Abdomen Limited Date of Exam: 05/19 Exam# [id number] Ordering Dr: Mary Chauhan MANAGER EDUCATION-Robert PROCEDURE: ABDOMEN LIMITED 06/02/2025 REASON FOR EXAM: EPIGASTRIC PAIN, BLOATING TECHNIQUE: Procedure Code: USABDL Modality: US Procedure: ABDOMEN LIMITED COMPARISON: None FINDINGS: Liver: Fatty infiltration of the liver is noted without a discrete lesion. No intrahepatic biliary dilatation, liver measures 14.9 cm Gallbladder: No stones, sludge, wall thickening or tenderness. Wall measures 1.9 mm, no pericholecystic fluid Common bile duct: Normal measuring 2.6 mm. Pancreas: Normal Kidneys: The right kidney measures 10.7 cm. No hydronephrosis, calculi or mass US/Abdomen Limited IMPRESSION: Fatty liver, no discrete lesion, otherwise unremarkable abdominal sonogram Reading Location: [id number] CC: JOSIE Chauhan; Dr. Melissa Newsome MD ~ Airline Stewardess: Signed [facility]08-25-2025 Progress [facility] Gastroenterology [address] [place] [address] OFFICE VISIT Date of Service: 05/19/25 MR#: [id number] Acct: [id number] Name: EDISON PUENTE Rep #: [id number] : 2000 Provider: JOSIE Chauhan Age/Sex: 25/F Location: [facility] Status: Signed Intake Vital Signs 04/28/25 15:14 05/19/25 15:00 Height 5 ft 4 in 5 ft 4 in Weight: 103 lb 4 oz 103 lb 4 oz BMI 17.7 17.7 BP 106/69 107/72 Respiration 14 16 Pulse 76 82 Temp 99.0 F 97.7 F L Temp Source Temporal Temporal Pulse Oximetry (%) 98 98 Oxygen Delivery Method room air room air Intake Visit Reasons: 3 week FU Chief Complaint: 3 week follow-up Entertainment Dancer Required: No Accompanied by: Self Is patient in pain?: No Allergies No Known Allergies Allergy (Verified 04/28/25 15:09) Medications ?Medication ?Instructions ?Recorded ?Confirmed ?Type multivitamin 1 tab PO QAM 04/28/25 History pantoprazole 40 mg tablet,delayed 40 mg PO QDAY #90 ta bs 04/28/25 05/19/25 Rx release linaclotide 145 mcg capsule 145 mcg PO QAM #90 caps 05/19/25 Rx (Linzess) PFSH Medical History COVID Mononucleosis Depression Surgical History Hx of tonsillectomy H/O wisdom tooth extraction Family History Mother Hyperlipidemia Father Heart disease Hypertension Grandmother Breast cancer Grandmother Diabetes Aunt Diabetes Social History adopted: No household members: significant other and family number of children: 0 current occupational status: employed 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 The patient's clinical presentation suggests potential gastrointestinal pathology such as gastroesophageal reflux disease (GERD) or peptic ulcer disease, especially given the report of black stools indicative of possible upper gastrointestinal bleeding. Further complications may be attributed to a complex interplay of factors includingdietary allergies, previous ovarian cysts, and underlying adenomyosis. Suspected constipation and overflow diarrhea may contribute to her current symptomatology due to fecal retention observed in prior imaging. CBC today H. pylori stool Pantoprazole 40mg once daily - Begin pantoprazole only after completing stool test. - Follow dietary restrictions for identified food allergies. - Drink plenty of fluids to help with bowel regularity. - Collect stool sample as per provided instructions and call [employer]Ex for collection. - Schedule follow-up appointment in three weeks to review test results and progress. - Visit the lab today for blood work and contact us if you have any concerns or questions. - Address any unusual symptoms, such as continued black stools or increased pain, with immediate medical consultation. Please advise patient stool testing is negative for acute infection and calprotectin is normal. Stool was positive for Enterotoxigenic Escherichia coli (ETEC); however, this is not something that we treat unless patient are experiencing severe watery diarrhea. This is likely colonized with calprotectin being normal. 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 Const Constitutional: Positive for fatigue and fever(s); No weight change ENT ENT: No difficulty swallowing Gastro GI: Positive for abdominal pain, bloating, change in bowel habits, constipation,diarrhea, heartburn, nausea/dyspepsia and vomiting; No belching, change in stool character, coffee ground emesis, cramping, difficulty swallowing, feeling full early, excessive flatus, incontinent of stools, Vomiting blood/hematemesis, Blood in stool,loose stools, Black,tarry stools, pain with swallowing or other Musc Musculoskeletal: Positive for joint pain Skin Skin: No yellowing of the eye or itchy eyes Psych Psychiatric: Positive for anxiety and No depression Endo Endocrine: Positive for fatigue; No weight change Aller/Imm Allergy/Immunologic: No itchy eyes Christiano/Lymp Hematologic/Lymphatic: No easy bleeding or easy bruising Exam Const General: cooperative, healthy appearing, no acute distress and well developed Nutritional Appearance: average body habitus and well nourished Orientation: alert and oriented x3 HENMT Head: normocephalic Ears: hearing grossly normal bilaterally Mouth: moist mucous membranes Teeth and gingiva: dentition normal Eyes Conjunctivae: conjunctivae normal Sclera: sclerae normal Neck Neck: normal visual inspection, full ROM and trachea midline Resp Effort & Inspection: normal respiratory effort, able to speak in complete sentences and symmetric chest movement GI Inspection: normal to inspection Auscultation: normal bowel sounds Palpation: soft and no hepatosplenomegaly Rectal Exam: deferred Other: epigastric tenderness Skin General: no rashes or lesions noted and turgor normal Neuro General: patient alert and patient oriented x3 Cranial Nerves: other (CN's grossly intact, non-focal exam) Cognition: normal cognition Speech: speech normal Gait: normal gait Extrem General: normal to inspection (no edema noted) Psych Appearance: grossly normal and well kempt Affect: normal affect Attitude: cooperative Thought Process: normal Assessment and Plan Assessment and Plan (1) Epigastric pain: Status: Acute (2) Nausea: Status: Acute (3) LLQ pain: Status: Acute (4) Abdominal cramping: Status: Acute Orders: Orders Abdomen Limited Today R10.13 - Epigastric pain, R10.32 - Left lower quadrant pain, R11.0 - Nausea Medications: New linaclotide (Linzess) take once daily 30 minutes before breakfast every morning 145 mcg PO QAM 90 caps 1RF Plan 25-year-old female presents for 3-week follow-up of epigastric and LLQ abdominalpain, nausea, and vomiting. Stool testing is negative for acute infection and calprotectin is normal. Stool was positive for Enterotoxigenic Escherichia coli (ETEC); however, this is not something that we treat unless pa tient are experiencing severe watery diarrhea. This is likely colonized with calprotectin being normal. She denies any improvement in her gastrointestinal symptoms with avoiding food allergens. She has noted an improvement in nausea and near resolution of emesis with pantoprazole 40 mg once daily. However, she does continue to experience epigastric tenderness and heartburn. She denies any use of nonsteroidal medications in the past month. She is continuing to experience of bloating and constipation, reporting going up to a week without a bowel movement. She has increased her oral intake, now eating at least 2 meals daily. Her weight is stable. I have scheduled her for an abdominal ultrasound and EGD. She will continue pantoprazole daily and start Linzess 145 mcg once daily. She will follow-up in 3 weeks. Plan Details Follow Up: 3 Weeks Coding Level of Care Code Off vis,est,level 3 Diagnoses Epigastric pain R10.13 Nausea R11.0 LLQ pain R10.32 Abdominal cramping R10.9 Clinical Quality Measures Smoking Screening Smoking Status: Never smoker 05/19/25 1538 norma MANAGER EDUCATION-C> Date _ Mary Chauhan MANAGER EDUCATION-C Cosigner Signature: Date (if applicable) CC: ~ [facility]08-25-2025 Progress note Author Mary Chauhan [facility] Note Date/Time May 19, 2025 3: 38pm [facility] [place] [address] OFFICE VISIT Date of Service: 05/19/25 MR#: [id number] Acct: [id number] Name: EDISON PUENTE Rep #: [id number] : 2000 Provider: JOSIE Chauhan Age/Sex: 25/F Location: [facility] [place] [facility] Status: Signed Intake Vital Signs 04/28/25 15:14 05/19/25 15:00 Height 5 ft 4 in 5 ft 4 in Weight: 103 lb 4 oz 103 lb 4 oz BMI 17.7 17.7 BP 106/69 107/72 Respiration 14 16 Pulse 76 82 Temp 99.0 F 97.7 F L Temp Source Temporal Temporal Pulse Oximetry (%) 98 98 Oxygen Delivery Method room air room air Intake Visit Reasons: 3 week FU Chief Complaint: 3 week follow-up Entertainment Dancer Required: No Accompanied by: Self Is patient in pain?: No Allergies No Known Allergies Allergy (Verified 04/28/25 15:09) Medications ?Medication ?Instructions ?Recorded ?Confirmed ?Type multivitamin 1 tab PO QAM 04/28/25 History pantoprazole 40 mg tablet,delayed 40 mg PO QDAY #90 ta bs 04/28/25 05/19/25 Rx release linaclotide 145 mcg capsule 145 mcg PO QAM #90 caps 05/19/25 Rx (Linzess) PFSH Medical History COVID Mononucleosis Depression Surgical History Hx of tonsillectomy H/O wisdom tooth extraction Family History Mother Hyperlipidemia Father Heart disease Hypertension Grandmother Breast cancer Grandmother Diabetes Aunt Diabetes Social History adopted: No household members: significant other and family number of children: 0 current occupational status: employed 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 The patient's clinical presentation suggests potential gastrointestinal pathology such as gastroesophageal reflux disease (GERD) or peptic ulcer disease, especially given the report of black stools indicative of possible upper gastrointestinal bleeding. Further complications may be attributed to a complex interplay of factors including dietary allergies, previous ovarian cysts, and underlying adenomyosis. Suspected constipation and overflow diarrhea may contribute to her current symptomatology due to fecal retention observed in prior imaging. CBC today H. pylori stool Pantoprazole 40mg once daily - Begin pantoprazole only after completing stool test. - Follow dietary restrictions for identified food allergies. - Drink plenty of fluids to help with bowel regularity. - Collect stool sample as per provided instructions and call [employer]Ex for collection. - Schedule follow-up appointment in three weeks to review test results and progress. - Visit the lab today for blood work and contact us if you have any concerns or questions. - Address any unusual symptoms, such as continued black stools or increased pain, with immediate medical consultation. Please advise patient stool testing is negative for acute infection and calprotectin is normal. Stool was positive for Enterotoxigenic Escherichia coli (ETEC); however, this is not something that we treat unless patient are experiencing severe watery diarrhea. This is likely colonized with calprotectin being normal. 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 Const Constitutional: Positive for fatigue and fever(s); No weight change ENT ENT: No difficulty swallowing Gastro GI: Positive for abdominal pain, bloating, change in bowel habits, constipation,diarrhea, heartburn, nausea/dyspepsia and vomiting; No belching, change in stool character, coffee ground emesis, cramping, difficulty swallowing, feeling full early, excessive flatus, incontinent of stools, Vomiting blood/hematemesis, Blood in stool, loose stools, Black,tarry stools, pain with swallowing or other Musc Musculoskeletal: Positive for joint pain Skin Skin: No yellowing of the eye or itchy eyes Psych Psychiatric: Positive for anxiety and No depression Endo Endocrine: Positive for fatigue; No weight change Aller/Imm Allergy/Immunologic: No itchy eyes Christiano/Lymp Hematologic/Lymphatic: No easy bleeding or easy bruising Exam Const General: cooperative, healthy appearing, no acute distress and well developed Nutritional Appearance: average body habitus and well nourished Orientation: alert and oriented x3 HENMT Head: normocephalic Ears: hearing grossly normal bilaterally Mouth: moist mucous membranes Teeth and gingiva: dentition normal Eyes Conjunctivae: conjunctivae normal Sclera: sclerae normal Neck Neck: normal visual inspection, full ROM and trachea midline Resp Effort & Inspection: normal respiratory effort, able to speak in complete sentences and symmetric chest movement GI Inspection: normal to inspection Auscultation: normal bowel sounds Palpation: soft and no hepatosplenomegaly Rectal Exam: deferred Other: epigastric tenderness Skin General: no rashes or lesions noted and turgor normal Neuro General: patient alert and patient oriented x3 Cranial Nerves: other (CN's grossly intact, non-focal exam) Cognition: normal cognition Speech: speech normal Gait: normal gait Extrem General: normal to inspection (no edema noted) Psych Appearance: grossly normal and well kempt Affect: normal affect Attitude: cooperative Thought Process: normal Assessment and Plan Assessment and Plan (1) Epigastric pain: Status: Acute (2) Nausea: Status: Acute (3) LLQ pain: Status: Acute (4) Abdominal cramping: Status: Acute Orders: Orders Abdomen Limited Today R10.13 - Epigastric pain, R10.32 - Left lower quadrant pain, R11.0 - Nausea Medications: New linaclotide (Linzess) take once daily 30 minutes before breakfast every morning 145 mcg PO QAM 90 caps 1RF Plan 25-year-old female presents for 3-week follow-up of epigastric and LLQ abdominalpain, nausea, and vomiting. Stool testing is negative for acute infection and calprotectin is normal. Stool was positive for Enterotoxigenic Escherichia coli (ETEC); however, this is not something that we treat unless patient are experiencing severe watery diarrhea. This is likely colonized with calprotectin being normal. She denies any improvement in her gastrointestinal symptoms with avoiding food allergens. She has noted an improvement in nausea and near resolution of emesis with pantoprazole 40 mg once daily. However, she does continue to experience epigastric tenderness and heartburn. She denies any use of nonsteroidal medications in the past month. She is continuing to experience of bloating and constipation, reporting going up to a week without a bowel movement. She has increased her oral intake, now eating at least 2 meals daily. Her weight is stable. I have scheduled her for an abdominal ultrasound and EGD. She will continue pantoprazole daily and start Linzess 145 mcg once daily. She will follow-up in 3 weeks. Plan Details Follow Up: 3 Weeks Coding Level of Care Code Off vis,est,level 3 Diagnoses Epigastric pain R10.13 Nausea R11.0 LLQ pain R10.32 Abdominal cramping R10.9 Clinical Quality Measures Smoking Screening Smoking Status: Never smoker 05/19/25 3551 <Electronically signed by Mary GALINDO> Date _ Mary GALINDO Cosigner Signature: Date (if applicable) CC: ~ [facility] Work Phone: 1(807) 305-133708-04-2025 Evaluation note* Diagnosis Onset Date Resolution Status Admit Date Epigastric pain acute April 2:54pm LLQ pain acute April 28 2:54pm Melena acute April 28 2:54pm Nausea acute April 28 2:54pm Abdominal cramping acute May 19, 2025 2:43pm Epigastric pain acute May 192024 2:43pm LLQ pain acute May 19, 025 2:43pm Nausea acute May 19 025 2:43pm Abdominal cramping acute 2024 10:24am LLQ pain acute May 10:24am Nausea acute May 10:24am Irregular menses acute 2024 9:01am Encounter for routine gynecological examination noneactive 2024 9:01am Constipation acute June 2:34pm Epigastric pain acute June 262024 2:34pm [facility] Work Phone: 1(720) 402-409606-17-2025 NoteHNO ID: [id number] Author: FABIOLA HUANG APRN.LEARN[employer] INSTRUCTOR Service: ? Author Type: Nurse Practitioner Type: Progress Notes Filed: 03/11/2025 19:03 Note Text: [facility] Subjective HPI HPI Edison Puente is a 25 year old female who presents today for CC of painful urination, abd discomfort, back discomfort. This started 1 day ago, improving. Has tried otc medication for relief. Symptoms are worsened by moving torso. Risk factors had ruptured cyst on ovary last month, went to ER/imaging performed. . Declines concerns for std and . .Patient presents with: Urinary Problem: urinated 1 time today, low back and pelvic pain x 1 day No past medical history on file. No past surgical history on file. ALLERGIES Patient has no known allergies. MEDICATIONS levonorgestrel (KYLEENA) 17.5 mcg/24 hrs (5 yrs) 19.5 mg IUD Take by intrauterine route. No family history on file. Social History Tobacco Use Smoking status: Never Smokeless tobacco: Never Review of Systems Constitutional: Negative for fever. Cardiovascular: Negative for chest pain. Gastrointestinal: Positive for abdominal pain. Negative for constipation, diarrhea, nausea and vomiting. Genitourinary: Positive for dysuria. Negative for flank pain, frequency and urgency. Musculoskeletal: Positive for back pain. Objective BP 106/62 Pulse 86 Temp 36.9 ?C (98.4 ?F) Resp 16 Wt 47.9 kg (105 lb 9.6 oz) LMP 08/18/2021 SpO2 98% Physical Exam Constitutional: General: She is not in acute distress. Appearance: Normal appearance. She is not toxic-appearing. Cardiovascular: Rate and Rhythm: Normal rate and regular rhythm. Heart sounds: Normal heart sounds. Pulmonary: Effort: Pulmonary effort is normal. Breath sounds: Normal breath sounds. Abdominal: General: Bowel sounds are normal. Palpations: Abdomen is soft. Tenderness: There is abdominal tenderness (vague, mild) in the right lower quadrant. There is right CVA tenderness (vague, mild). There is no left CVA tenderness. Comments: Negative chandelier sign Skin: General: Skin is warm and dry. {ASSESSMENT/PLAN: 1. Acute midline low back pain without sciatica - ICD9: 724.2, ICD10: M54.50 (primary diagnosis) Possibly improving msk pain Will send urine culture, treat per results - UA DIP, URINE (POC) - BACTERIAL CULTURE, URINE 2. Pelvic pain - ICD9: [id number], ICD10: R10.2 Ua negative Declines std testing No treatment today, treat per results Go to ER for worsening s/s - UA DIP, URINE (POC) - BACTERIAL CULTURE, URINE Fabiola Huang APRN.CNP History and Record Review External record(s) reviewed: prior outpatient record. Disposition The patient was discharged. OTC Medications were advised: [facility] History of Present illness Narrative* Fabiola Huang APRN.CNP - 03/11/2025 6:58 PM EDT [facility] Subjective HPI HPI Edison Puente is a 25 year old female who presents today for CC of painful urination, abd discomfort, back discomfort. This started 1 day ago, improving. Has tried otc medication for relief. Symptoms are worsened by moving torso. Risk factors had ruptured cyst on ovary last month, went to ER/imaging performed. . Declines concerns for std and . .Patient presents with: Urinary Problem: urinated 1 time today, low back and pelvic pain x 1 day No past medical history on file. No past surgical history on file. ALLERGIES Patient has no known allergies. MEDICATIONS levonorgestrel (KYLEENA) 17.5 mcg/24 hrs (5 yrs) 19.5 mg IUD Take by intrauterine route. No family history on file. Social History Tobacco Use Smoking status: Never Smokeless tobacco: Never Review of Systems Constitutional: Negative for fever. Cardiovascular: Negative for chest pain. Gastrointestinal: Positive for abdominal pain. Negative for constipation, diarrhea, nausea and vomiting. Genitourinary: Positive for dysuria. Negative for flank pain, frequency and urgency. Musculoskeletal: Positive for back pain. Objective BP 106/62 Pulse 86 Temp 36.9 C (98.4 F) Resp 16 Wt 47.9 kg (105 lb 9.6 oz) LMP 08/18/2021 SpO2 98% Physical Exam Constitutional: General: She is not in acute distress. Appearance: Normal appearance. She is not toxic-appearing. Cardiovascular: Rate and Rhythm: Normal rate and regular rhythm. Heart sounds: Normal heart sounds. Pulmonary: Effort: Pulmonary effort is normal. Breath sounds: Normal breath sounds. Abdominal: General: Bowel sounds are normal. Palpations: Abdomen is soft. Tenderness: There is abdominal tenderness (vague, mild) in the right lower quadrant. There is rightCVA tenderness (vague, mild). There is no left CVA tenderness. Comments: Negative chandelier sign Skin: General: Skin is warm and dry. {ASSESSMENT/PLAN: 1. Acute midline low back pain without sciatica - ICD9: 724.2, ICD10: M54.50 (primary diagnosis) Possibly improving msk pain Will send urine culture, treat per results - UA DIP, URINE (POC) - BACTERIAL CULTURE, URINE 2. Pelvic pain - ICD9: [id number], ICD10: R10.2 Ua negative Declines std testing No treatment today, treat per results Go to ER for worsening s/s - UA DIP, URINE (POC) - BACTERIAL CULTURE, URINE Fabiola Huang APRN.CNP History and Record Review External record(s) reviewed: prior outpatient record. Disposition The patient was discharged. OTC Medications were advised: Procedures documented in this encounterCleveland [id number] Evaluation note* Diagnosis Onset Date Resolution Status Admit Date Immunization declined noneactive Feb 10:59am Moderate major depression noneactive March 10, 2025 10:59am Mild anxiety noneactive March 10, 2 025 10:59am Establishing care with new doctor, encounter for noneactive March 10, 2025 10:59am Fatigue noneactive March 10 10:59am Chronic abdominal pain noneactive [facility] 2024 10:59am [facility] Work Phone: 1(719) 191-348806-16-2025 Evaluation note* Diagnosis Onset Date Resolution Status Admit Date Immunization declined noneactive Feb 10:59am Moderate major depression noneactive March 10, 2025 10:59am Mild anxiety noneactive March 10, 025 10:59am Establishing care with new doctor, encounter for noneactive March 10, 2025 10:59am Fatigue noneactive March 10 10:59am Chronic abdominal pain noneactive [facility] 2024 10:59am Epigastric pain acute April 2:54pm LLQ pain acute April 28 2:54pm Melena acute April 28 2:54pm Nausea acute April 28 2:54pm Abdominal pain noneactive April 2:54pm [facility] Work Phone: 1(523) 381-706206-16-2025 Evaluation note* Diagnosis Onset Date Resolution Status Admit Date Immunization declined noneactive Feb 10:59am Moderate major depression noneactive March 10, 2025 10:59am Mild anxiety noneactive March 10, 025 10:59am Establishing care with new doctor, encounter for noneactive March 10, 2025 10:59am Fatigue noneactive March 10 10:59am Chronic abdominal pain noneactive [facility] 2024 10:59am Epigastric pain acute April h2024 2:54pm LLQ pain acute April 28 2:54pm Melena acute April 28 2:54pm Nausea acute April 28 2:54pm [facility] Work Phone: 1(326) 598-906106-16-2025 Evaluation note* Diagnosis Onset Date Resolution Status Admit Date Immunization declined noneactive Feb 10:59am Moderate major depression noneactive March 10, 2025 10:59am Mild anxiety noneactive March 10, 025 10:59am Establishing care with new doctor, encounter for noneactive March 10, 2025 10:59am Fatigue noneactive March 10 10:59am Chronic abdominal pain noneactive [facility] 2024 10:59am Epigastric pain acute April 2:54pm LLQ pain acute April 28 2:54pm Melena acute April 28 2:54pm Nausea acute April 28 2:54pm Abdominal cramping acute May 19, 2025 2:43pm Epigastric pain acute May 192024 2:43pm LLQ pain acute May 19, 2 025 2:43pm Nausea acute May 19, 2 025 2:43pm [place] [facility] Work Phone: 1(888) 624-181406-16-2025 Evaluation note* Diagnosis Onset Date Resolution Status Admit Date Immunization declined noneactive Feb 10:59am Moderate major depression noneactive March 10, 2025 10:59am Mild anxiety noneactive March 10, 025 10:59am Establishing care with new doctor, encounter for noneactive March 10, 2025 10:59am Fatigue noneactive March 10 10:59am Chronic abdominal pain noneactive 2024 10:59am Epigastric pain acute April 2:54pm LLQ pain acute April 28 2:54pm Melena acute April 28 2:54pm Nausea acute April 28 2:54pm Abdominal cramping acute May 19, 2025 2:43pm Epigastric pain acute May 192024 2:43pm LLQ pain acute May 19, 2 025 2:43pm Nausea acute May 19, 2 025 2:43pm Abdominal cramping acute 2024 10:24am LLQ pain acute May 10:24am Nausea acute May 10:24am Irregular menses acute 2024 9:01am Encounter for routine gynecological examination noneactive Sept2024 9:01am [facility] Work Phone: 1(875) 588-977104-21-2025 NoteHNO ID: [id number] Author: MICHELLE TUBBS APRN.WALESKA Service: ? Author Type: Nurse Practitioner Type: Progress Notes Filed: 01/13/2025 16:52 Note Text: This note was created using [employer]. Subjective Edison Puente is a 24 year old female. HPI Patient notes some nausea and vomiting yesterday which has currently resolved. Today she noticed some urinary burning and frequency along with some low back pain which she feels is consistent with her previous urinary tract infections. She denies any chance of and denies any concerns for STD. Denies any recent fever. Review of Systems As above Objective BP 102/64 Pulse 98 Temp 36.9 ?C (98.5 ?F) (Tympanic) Resp 16 Wt 48 kg (105 lb 13.1 oz) LMP 08/18/2021 SpO2 98% Physical Exam Vitals and nursing note reviewed. Constitutional: General: She is not in acute distress. Appearance: Normal appearance. She is not ill-appearing. HENT: Head: Normocephalic. Mouth/Throat: Mouth: Mucous membranes are moist. Eyes: Conjunctiva/sclera: Conjunctivae normal. Cardiovascular: Rate and Rhythm: Normal rate and regular rhythm. Pulmonary: Effort: Pulmonary effort is normal. Breath sounds: Normal breath sounds. Abdominal: Tenderness: There is abdominal tenderness. There is no right CVA tenderness or left CVA tenderness. Comments: Mild diffuse tenderness Musculoskeletal: General: Normal range of motion. Cervical back: Normal range of motion. Skin: General: Skin is warm and dry. Neurological: General: No focal deficit present. Mental Status: She is alert. Psychiatric: Mood and Affect: Mood normal. Behavior: Behavior normal. Assessment and Plan ASSESSMENT/PLAN: 1. Urinary frequency - ICD9: 788.41, ICD10: R35.0 acute - UA positive for josesito esterase - Send urine for culture - Begin treatment with Macrobid 100 mg BID for 5 days - Patient education for prevention given -Patient also given a prescription for fluconazole as she often notes yeast infections post antibiotic use -No additional testing done as patient denies any concern for or STD -Macrobid -Fluconazole - UA DIP, URINE (POC) - BACTERIAL CULTURE, URINE Michelle Tubbs APRN.CNPProm[facility]04-21-20[facility] History of Present illness Narrative* Michelle Tubbs APRN.WALESKA - 01/13/2025 4:46 PM EDT This note was created using [employer]. Subjective Edison Puente is a 24 year old female. HPI Patient notes some nausea and vomiting yesterday which has currently resolved. Today she noticed some urinary burning and frequency along with some low back pain which she feels is consistent with her previous urinary tract infections. She denies any chance of and denies any concerns for STD. Denies any recent fever. Review of Systems As above Objective BP 102/64 Pulse 98 Temp 36.9 C (98.5 F) (Tympanic) Resp 16 Wt 48 kg (105 lb 13.1 oz) LMP 08/18/2021 SpO2 98% Physical Exam Vitals and nursing note reviewed. Constitutional: General: She is not in acute distress. Appearance: Normal appearance. She is not ill-appearing. HENT: Head: Normocephalic. Mouth/Throat: Mouth: Mucous membranes are moist. Eyes: Conjunctiva/sclera: Conjunctivae normal. Cardiovascular: Rate and Rhythm: Normal rate and regular rhythm. Pulmonary: Effort: Pulmonary effort is normal. Breath sounds: Normal breath sounds. Abdominal: Tenderness: There is abdominal tenderness. There is no right CVA tenderness or left CVA tenderness. Comments: Mild diffuse tenderness Musculoskeletal: General: Normal range of motion. Cervical back: Normal range of motion. Skin: General: Skin is warm and dry. Neurological: General: No focal deficit present. Mental Status: She is alert. Psychiatric: Mood and Affect: Mood normal. Behavior: Behavior normal. Assessment and Plan ASSESSMENT/PLAN: 1. Urinary frequency - ICD9: 788.41, ICD10: R35.0 acute - UA positive for josesito esterase - Send urine for culture - Begin treatment with Macrobid 100 mg BID for 5 days - Patient education for prevention given -Patient also given a prescription for fluconazole as she often notes yeast infections post antibiotic use -No additional testing done as patient denies any concern for or STD -Macrobid -Fluconazole - UA DIP, URINE (POC) - BACTERIAL CULTURE, URINE Michelle Tubbs APRN.WALESKA documented in this encounterUniversity [facility]als [facility]11-05-2024 NoteHNO ID: [id number] Author: GREGORY BE PA-C Service: ? Author Type: Physician Director Visual Type: Progress Notes Filed: 07/30/2024 13:24 Note Text: This note was created using [employer]. Subjective Edison Puente is a 24 year old female. Patient is a 24-year-old female who complains of dysuria and hematuria that she has noted for the past 3 days. Patient also reports slight left lower back pain. Patient denies fever, chills, nausea, flank pain or other symptoms. Patient has no history of kidney stone. Patient states her last menses was 2 weeks ago and normal. Patient does have a history of UTI and states her current symptoms are consistent with same. Review of Systems Genitourinary: Positive for dysuria, hematuria and urgency. Negative for enuresis, flank pain, frequency and pelvic pain. All other systems reviewed and are negative. Objective BP 96/62 Pulse 70 Temp 36.8 ?C (98.2 ?F) Resp 16 Wt 43.5 kg (95 lb 14.4 oz) LMP 08/18/2021 SpO2 99% Physical Exam Vitals and nursing note reviewed. Constitutional: Appearance: Normal appearance. She is normal weight. HENT: Head: Normocephalic and atraumatic. Right Ear: External ear normal. Left Ear: External ear normal. Nose: Nose normal. Mouth/Throat: Mouth: Mucous membranes are moist. Pharynx: Oropharynx is clear. Eyes: Extraocular Movements: Extraocular movements intact. Conjunctiva/sclera: Conjunctivae normal. Pupils: Pupils are equal, round, and reactive to light. Cardiovascular: Rate and Rhythm: Normal rate. Pulses: Normal pulses. Heart sounds: Normal heart sounds. Pulmonary: Effort: Pulmonary effort is normal. Breath sounds: Normal breath sounds. Abdominal: General: Abdomen is flat. Palpations: Abdomen is soft. Musculoskeletal: Cervical back: Normal range of motion and neck supple. Skin: General: Skin is warm and dry. Capillary Refill: Capillary refill takes less than 2 seconds. Neurological: General: No focal deficit present. Mental Status: She is alert and oriented to person, place, and time. Psychiatric: Mood and Affect: Mood normal. Behavior: Behavior normal. Thought Content: Thought content normal. Judgment: Judgment normal. Assessment and Plan Physical exam findings as noted above. UA shows leukocyte esterase and blood. Urine culture was ordered. Patient was provided with a prescription for Keflex 250 mg and advised that results of the urine culture will be available in 2 days. Patient was informed that she will be contacted if her medication needs to be changed based on the sensitivity report. Patient states that she typically develops vaginal yeast infections with antibiotic use and she was also provided with a prescription for Diflucan 150 mg. Patient verbalizes good understanding of all of the above instructions. CLINICAL IMPRESSION: Acute [facility]rom[facility] History of Present illness Narrative* Gregory Be PA-C - 07/30/2024 1:16 PM EST This note was created using [employer]. Subjective Edison Puente is a 24 year old female. Patient is a 24-year-old female who complains of dysuria and hematuria that she has noted for the past 3 days. Patient also reports slight left lower back pain. Patient denies fever, chills, nausea, flank pain or other symptoms. Patient has no history of kidney stone. Patient states her last menseswas 2 weeks ago and normal. Patient does have a history of UTI and states her current symptoms are c onsistent with same. Review of Systems Genitourinary: Positive for dysuria, hematuria and urgency. Negative for enuresis, flank pain, frequency and pelvic pain. All other systems reviewed and are negative. Objective BP 96/62 Pulse 70 Temp 36.8 C (98.2 F) Resp 16 Wt 43.5 kg (95 lb 14.4 oz) LMP 08/18/2021 SpO2 99% Physical Exam Vitals and nursing note reviewed. Constitutional: Appearance: Normal appearance. She is normal weight. HENT: Head: Normocephalic and atraumatic. Right Ear: External ear normal. Left Ear: External ear normal. Nose: Nose normal. Mouth/Throat: Mouth: Mucous membranes are moist. Pharynx: Oropharynx is clear. Eyes: Extraocular Movements: Extraocular movements intact. Conjunctiva/sclera: Conjunctivae normal. Pupils: Pupils are equal, round, and reactive to light. Cardiovascular: Rate and Rhythm: Normal rate. Pulses: Normal pulses. Heart sounds: Normal heart sounds. Pulmonary: Effort: Pulmonary effort is normal. Breath sounds: Normal breath sounds. Abdominal: General: Abdomen is flat. Palpations: Abdomen is soft. Musculoskeletal: Cervical back: Normal range of motion and neck supple. Skin: General: Skin is warm and dry. Capillary Refill: Capillary refill takes less than 2 seconds. Neurological: General: No focal deficit present. Mental Status: She is alert and oriented to person, place, and time. Psychiatric: Mood and Affect: Mood normal. Behavior: Behavior normal. Thought Content: Thought content normal. Judgment: Judgment normal. Assessment and Plan Physical exam findings as noted above. UA shows leukocyte esterase and blood. Urine culture was ordered. Patient was provided with a prescription for Keflex 250 mg and advised that results of the urine culture will be available in 2 days. Patient was informed that she will be contacted if her medication needs to be changed based on the sensitivity report. Patient states that she typically develops vaginal yeast infections with antibiotic use and she was also provided with a prescription for Diflucan 150 mg. Patient verbalizes good understanding of all of the above instructions. CLINICAL IMPRESSION: Acute UTI documented in this encounterUniversity [facility]als [facility]08-16-2024 Telephone encounter Note * Telephone Encounter - Maria Greer APRN.CNP - 05/10/2024 1:30 PM EDT Requested DIflucan sent over. [facility]08-16-[facility] Miscellaneous Notes* Telephone Encounter - Maria Greer APRN.CNP - 05/10/2024 1:30 PM EDT Requested DIflucan sent over. documented in this encounterUniversity Hospitals [facility]08-14-2024 NoteHNO ID: [id number] Author: MARIA GREER APRN.[facility] Service: ? Author Type: Nurse Practitioner Type: Progress Notes Filed: 05/08/2024 19:24 Note Text: This note was created using [employer]. Subjective Edison Puente is a 24 year old female. 24 year old female with no PMH presents for possile UTI. Acute onset 3 to 4 days ago Pain with urinating +frequency +cloudy urine +vaginal bleeding +vaginal discharge +suprapubic pressure Denies fever or chills LMP-recently ended Recent coitus Endorses increasing fluids has helped. Endorses she engages in sex with single partner. Denies concerns for possible STI, but states anything is possible The history is provided by the patient. No corsage maker was used. Female Gu Problem This is a new problem. The current episode started 3 to 5 days ago. The onset was gradual. The problem occurs continuously. The problem has been gradually worsening. Nothing relieves the symptoms. Nothing aggravates the symptoms. Associated symptoms include frequency, urgency and vaginal discharge. Pertinent negatives include no chest pain, no anorexia, no chills, no fever, no abdominal pain, no nausea, no vomiting, no dysuria, no pelvic pain, no headaches, no sore throat, no back pain, no cough, no rash and no dyspareunia. There has been no history of trauma. Urine output has been normal. The last void occurred Less than 6 hours ago. She is currently Sexually active. She has 1 sexual partner. She is not . She has not missed her period. Her past medical history does not include STD or PID. There were no sick contacts. She has received no recent medical care. History reviewed. No pertinent past medical history. No past surgical history on file. ALLERGIES Patient has no known allergies. MEDICATIONS levonorgestrel (KYLEENA) 17.5 mcg/24 hrs (5 yrs) 19.5 mg IUD Take by intrauterine route. fluconazole (DIFLUCAN) 150 mg tablet Take 1 tablet by mouth once daily for 1 day. No family history on file. Social History Tobacco Use Smoking status: Never Smokeless tobacco: Never Review of Systems Constitutional: Negative for chills and fever. HENT: Negative for sore throat. Respiratory: Negative for cough. Cardiovascular: Negative for chest pain. Gastrointestinal: Negative for abdominal pain, anorexia, nausea and vomiting. Genitourinary: Positive for frequency, urgency and vaginal discharge. Negative for dyspareunia, dysuria and pelvic pain. Musculoskeletal: Negative for back pain. Skin: Negative for rash. Allergic/Immunologic: Negative for environmental allergies, food allergies and immunocompromised state. Neurological: Negative for dizziness, facial asymmetry and headaches. Hematological: Negative for adenopathy. Does not bruise/bleed easily. Psychiatric/Behavioral: Negative for agitation and behavioral problems. Objective BP 100/64 Pulse 77 Temp 37.3 ?C (99.2 ?F) (Tympanic) Resp 18 Wt 43.6 kg (96 lb 1.9 oz) LMP 08/18/2021 SpO2 99% Physical Exam Vitals and nursing note reviewed. Constitutional: General: She is not in acute distress. Appearance: Normal appearance. She is normal weight. She is not ill-appearing, toxic-appearing or diaphoretic. HENT: Head: Normocephalic and atraumatic. Right Ear: Ear canal and external ear normal. Left Ear: Ear canal and external ear normal. Nose: Nose normal. No congestion or rhinorrhea. Mouth/Throat: Mouth: Mucous membranes are moist. Pharynx: No oropharyngeal exudate or posterior oropharyngeal erythema. Eyes: General: Right eye: No discharge. Left eye: No discharge. Extraocular Movements: Extraocular movements intact. Conjunctiva/sclera: Conjunctivae normal. Pupils: Pupils are equal, round, and reactive to light. Cardiovascular: Rate and Rhythm: Normal rate and regular rhythm. Pulses: Normal pulses. Heart sounds: Normal heart sounds. No murmur heard. No friction rub. Pulmonary: Effort: Pulmonary effort is normal. No respiratory distress. Breath sounds: Normal breath sounds. No stridor. No wheezing, rhonchi or rales. Chest: Chest wall: No tenderness. Abdominal: General: Abdomen is flat. There is no distension. Palpations: Abdomen is soft. There is no mass. Tenderness: There is no abdominal tenderness. There is no right CVA tenderness, left CVA tenderness, guarding or rebound. Hernia: No hernia is present. Genitourinary: Comments: Declines pelvic exam Prefers self swab Musculoskeletal: General: No swelling, tenderness, deformity or signs of injury. Normal range of motion. Cervical back: Normal range of motion and neck supple. No rigidity. Right lower leg: No edema. Left lower leg: No edema. Lymphadenopathy: Cervical: No cervical adenopathy. Skin: General: Skin is warm and dry. Coloration: Skin is not jaundiced or pale. Findings: No bruising, erythema, lesion or rash. Neurological: General: No focal deficit (more content not included)...[facility]08-[facility] History of Present illness Narrative* Maria Greer APRN.[facility] - 05/08/2024 5:59 PM EDT This note was created using [employer]. Subjective Edison Puente is a 24 year old female. 24 year old female with no PMH presents for possile UTI. Acute onset 3 to 4 days ago Pain with urinating +frequency +cloudy urine +vaginal bleeding +vaginal discharge +suprapubic pressure Denies fever or chills LMP-recently ended Recent coitus Endorses increasing fluids has helped. Endorses she engages in sex with single partner. Denies concerns for possible STI, but states anything is possible The history is provided by the patient. No corsage maker was used. Female Gu Problem This is a new problem. The current episode started 3 to 5 days ago. The onset was gradual. The problem occurs continuously. The problem has been gradually worsening. Nothing relieves the symptoms. Nothing aggravates the symptoms. Associated symptoms include frequency, urgency and vaginal discharge.Pertinent negatives include no chest pain, no anorexia, no chills, no fever, no abdominal pain, no nausea, no vomiting, no dysuria, no pelvic pain, no headaches, no sore throat, no back pain, no cough, no rash and no dyspareunia. There has been no history of trauma. Urine output has been normal. The last void occurred Less than 6 hours ago. She is currently Sexually active. She has 1 sexual partner. She is not . She has not missed her period. Her past medical history does not include STD or PID. There were no sick contacts. She has received no recent medical care. History reviewed. No pertinent past medical history. No past surgical history on file. ALLERGIES Patient has no known allergies. MEDICATIONS levonorgestrel (KYLEENA) 17.5 mcg/24 hrs (5 yrs) 19.5 mg IUD Take by intrauterine route. fluconazole (DIFLUCAN) 150 mg tablet Take 1 tablet by mouth once daily for 1 day. No family history on file. Social History Tobacco Use Smoking status: Never Smokeless tobacco: Never Review of Systems Constitutional: Negative for chills and fever. HENT: Negative for sore throat. Respiratory: Negative for cough. Cardiovascular: Negative for chest pain. Gastrointestinal: Negative for abdominal pain, anorexia, nausea and vomiting. Genitourinary: Positive for frequency, urgency and vaginal discharge. Negative for dyspareunia, dysuria and pelvic pain. Musculoskeletal: Negative for back pain. Skin: Negative for rash. Allergic/Immunologic: Negative for environmental allergies, food allergies and immunocompromised state. Neurological: Negative for dizziness, facial asymmetry and headaches. Hematological: Negative for adenopathy. Does not bruise/bleed easily. Psychiatric/Behavioral: Negative for agitation and behavioral problems. Objective BP 100/64 Pulse 77 Temp 37.3 C (99.2 F) (Tympanic) Resp 18 Wt 43.6 kg (96 lb 1.9 oz) LMP 08/18/2021 SpO2 99% Physical Exam Vitals and nursing note reviewed. Constitutional: General: She is not in acute distress. Appearance: Normal appearance. She is normal weight. She is not ill-appearing, toxic-appearing or diaphoretic. HENT: Head: Normocephalic and atraumatic. Right Ear: Ear canal and external ear normal. Left Ear: Ear canal and external ear normal. Nose: Nose normal. No congestion or rhinorrhea. Mouth/Throat: Mouth: Mucous membranes are moist. Pharynx: No oropharyngeal exudate or posterior oropharyngeal erythema. Eyes: General: Right eye: No discharge. Left eye: No discharge. Extraocular Movements: Extraocular movements intact. Conjunctiva/sclera: Conjunctivae normal. Pupils: Pupils are equal, round, and reactive to light. Cardiovascular: Rate and Rhythm: Normal rate and regular rhythm. Pulses: Normal pulses. Heart sounds: Normal heart sounds. No murmur heard. No friction rub. Pulmonary: Effort: Pulmonary effort is normal. No respiratory distress. Breath sounds: Normal breath sounds. No stridor. No wheezing, rhonchi or rales. Chest: Chest wall: No tenderness. Abdominal: General: Abdomen is flat. There is no distension. Palpations: Abdomen is soft. There is no mass. Tenderness: There is no abdominal tenderness. There is no right CVA tenderness, left CVA tenderness, guarding or rebound. Hernia: No hernia is present. Genitourinary: Comments: Declines pelvic exam Prefers self swab Musculoskeletal: General: No swelling, tenderness, deformity or signs of injury. Normal range of motion. Cervical back: Normal range of motion and neck supple. No rigidity. Right lower leg: No edema. Left lower leg: No edema. Lymphadenopathy: Cervical: No cervical adenopathy. Skin: General: Skin is warm and dry. Coloration: Skin is not jaundiced or pale. Findings: No bruising, erythema, lesion or rash. Neurological: General: No focal deficit present. Mental Status: She is alert and oriented to person, place, and time. Cranial Nerves: No cranial nerve deficit. Sensory: No sensory deficit. Motor: No weakness. Coordination: Coordination normal. Gait: Gait normal. Psychiatric: Mood and Affect: Mood normal. Behavior: Behavior normal. Thought Content: Thought content normal. Judgment: Judgment normal. Assessment and Plan ASSESSMENT/PLAN: 1. Urinary frequency - ICD9: 788.41, ICD10: R35.0 (primary diagnosis) acute - UA positive for trace blood - Send urine for culture - Patient education for prevention given - UA DIP, URINE (POC) - URINE CULTURE 2. Vaginal discharge - ICD9: 623.5, ICD10: N89.8 X 3 to 4 days +discharge Recent coitus Recent menses RX Diflucan - BELEN/TRICHOMONAS NAAT - BACTERIAL VAGINOSIS NAAT - GONORRHEA/CHLAMYDIA NAAT Will await further results to guide. Maria Greer APRN.LEARNING CENTER INSTRUCTOR documented in this encounterUniversity [facility]03-23-[facility]24 History of Present illness Narrative* Kodak Juares APRN.WALESKA - 12/16/2023 1:52 PM EDT Subjective HPI Nontoxic-appearing female presents to urgent care with chief complaint of fever and cough. Durationof symptoms 2 days. Associated symptoms with today's chief complaint are on and off headache, muscle aches, fatigue, nonproductive cough, and fever. Patient stated symptoms started abruptly. Patient states they have used [id number] medication with some success. Positive sick contacts at work similar signs symptoms. Patient denies any pain at this time. Patient denies any visual changes, visual disturbance, shortness of breath, rash, exercise intolerance, pleuritic pain, productive cough, abdominal pain, nausea, vomiting, chest pain, or change in bowel or bladder habits. Past medical history prescription medications allergies reviewed. Denies chance of . Is not breast-feeding. .Patient presents with: Flu Like Symptoms: Cough, SOB, ST, D[place], fever x2 days History reviewed. No pertinent past medical history. History reviewed. No pertinent surgical history. ALLERGIES Patient has no known allergies. MEDICATIONS levonorgestrel (KYLEENA) 17.5 mcg/24 hrs (5 yrs) 19.5 mg IUD Take by intrauterine route. History reviewed. No pertinent family history. Social History Tobacco Use Smoking status: Never Smokeless tobacco: Never BP 112/78 Pulse 79 Temp (!) 38.8 C (101.9 F) Resp 18 Wt 45.1 kg (99 lb 6.8 oz) LMP 08/18/2021 SpO2 97% Review of Systems Constitutional: Positive for chills, fever and malaise/fatigue. HENT: Positive for congestion and sore throat. Negative for ear discharge, ear pain and sinus pain. Eyes: Negative for blurred vision, pain, discharge and redness. Respiratory: Positive for cough. Negative for hemoptysis, sputum production, shortness of breath, wheezing and stridor. Cardiovascular: Negative for chest pain. Gastrointestinal: Negative for abdominal pain, diarrhea, nausea and vomiting. Musculoskeletal: Positive for myalgias. Skin: Negative for itching and rash. Neurological: Positive for headaches. Negative for dizziness. Objective Physical Exam Constitutional: General: She is not in acute distress. Appearance: She is not diaphoretic. HENT: Head: Normocephalic. Jaw: No trismus, tenderness, swelling or pain on movement. Nose: Congestion present. Mouth/Throat: Mouth: Mucous membranes are moist. Pharynx: Oropharynx is clear. Uvula midline. Posterior oropharyngeal erythema present. No pharyngeal swelling, oropharyngeal exudate or uvula swelling. Eyes: Conjunctiva/sclera: Conjunctivae normal. Pupils: Pupils are equal, round, and reactive to light. Cardiovascular: Rate and Rhythm: Normal rate and regular rhythm. Heart sounds: Normal heart sounds. Pulmonary: Effort: Pulmonary effort is normal. No tachypnea, accessory muscle usage or respiratory distress. Breath sounds: Normal breath sounds. No stridor. No wheezing, rhonchi or rales. Abdominal: General: There is no distension. Palpations: Abdomen is soft. Tenderness: There is no abdominal tenderness. There is no guarding or rebound. Musculoskeletal: Cervical back: Normal range of motion and neck supple. No edema, erythema, rigidity or tenderness. No pain with movement. Normal range of motion. Lymphadenopathy: Cervical: No cervical adenopathy. Skin: General: Skin is warm and dry. Neurological: Mental Status: She is alert and oriented to person, place, and time. ASSESSMENT/PLAN: 1. Fever, unspecified fever cause - ICD9: 780.60, ICD10: R50.9 (primary diagnosis) - INFLUENZA A&B MOLECULAR (POC) 2. Influenza B - ICD9: 487.1, ICD10: J10.1 [id number]-eh-[id number] influenza test positive. Tamiflu sent to pharmacy. Risk and benefit of medications discussed. Patient was educated on supportive therapies. Patient will follow up with primary care provider as needed. Patient was instructed to immediately proceed to emergency room for any new, worsening, or symptoms lasting longer than anticipated. The patient's clinical presentation is otherwise unremarkable at this time. Based on exam and clinical finding, the patient is stable for discharge. Plan of care was discussed with patient. Patient verbalizes understanding and agrees to plan of care. This note was generated using [employer] software. It may contain errors in wording, punctuation, or spelling. Kodak Juares APRN.LEARNING CENTER INSTRUCTOR documented in this encounterTr[facility] note Author Kyle Phillips [facility] Note Date/Time June 16, 2025 12:32pm [facility] Medical Records Department [address] [facility] [place] [address] Anesthesia Postop Eval I 06/16/25 1231 MR#: [id number] Acct: [id number] Name: EDISON PUENTE Rep #:[id number] : 2000 25 From: Kyle Phillips PCP: Dr. Melissa Newsome MD Status:REG SDC Y Race: C Location: [place] [address] Anesthesia: Postop Eval I Current Vital Signs Temperature: 97.9 F Pulse Rate: 61 Blood Pressure: 89/53 Respiratory Rate: 16 Pulse Ox: 97 Oxygen Delivery Method: Room Air Assessment Airway patent: Yes Spontaneous unlabored respirations: Yes Mental status: Asleep nausea: No Vomiting: No Anesthesia Complication: No Fluid Hydration Crystalloid volume administer (ml): 400 Total IV fluid infused: 400 Progress Note Anesthesia document: Postop Eval 1 completed: Yes 06/16/25 1232 <Electronically signed by Kyle Phillips > Date _ Kyle Calvilloignmarylu Signature: Date CC: ~ Signed [facility] Work Phone: Consult note Author Everardo rodrigo [facility] Note Date/Time June 16, 2025 1:22pm [facility] Medical Records Department [address] [place] [id number] Anesthesia Postop Eval II 06/16/25 1304 MR#: [id number] Acct: [id number] Name: EDISON PUENTE Rep #:[id number] : 2000 25 From: Everardo Hernandez MD PCP: Dr. Melissa Newsome MD Status:REG [facility] [place] Race: C Location: [place] [address] Anesthesia Postop Eval I Sum Postop Eval Completion status Anesthesia document: Postop Eval 1 completed: Yes Anesthesia Postop Eval I Summary Anesthesia Postop Eval I Summary: Anesthesia Postop Eval I: Assessment Summary Airway patent Yes 06/16/25 12:32 [email or web address] Spontaneous unlabored Yes 06/16/25 12:32 [email or web address] respirations Mental status Asleep 06/16/25 12:32 [email or web address] nausea No 06/16/25 12:32 [email or web address] Vomiting No 06/16/25 12:32 [email or web address] Anesthesia Postop Eval I: Fluid Summary Crystalloid volume administer 400 06/16/25 12:32 [email or web address] (ml) Colloids volume administered ( ml) Blood Product volume administered (ml) Total IV fluid infused 400 06/16/25 12:32 [email or web address] Anesthesia Postop Eval I: Summary Notes Anesthesia Complication No 06/16/25 12:32 [email or web address] Anesthesia Complication Comment: Post-operative progress note Anesthesia: Postop Eval II Evaluation Mental status: Awake Pain Level: 0 nausea: No Vomiting: No 06/16/25 1304 <Electronically signed by Everardo Hernandez MD > Date _ Everardo Hernandez MD Cosigner Signature: Date CC: ~ Signed [facility] Work Phone: Evaluation note* Diagnosis Fever, unspecified fever cause- Primary Influenza B Influenza with other respiratory manifestations [facility] Urinary frequency- Primary Vaginal discharge Leukorrhea, not specified as infective [facility] Diagnosis Urinary frequency- Primary Acute UTI Urinary tract infection, site not specified [facility] Diagnosis Urinary frequency- Primary [facility] Diagnosis Onset Date Resolution Status Admit Date Establishing care with new doctor, encounter for noneactive March 10, 2025 10:59am [facility] Work Phone: Evaluation note* Diagnosis Acute midline low back pain without sciatica- Primary Pelvic pain [facility] Author Jaz Ramos [facility] Note Date/Time June 19, 2025 9:29am 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: No Is patient in pain?: Yes Pain scale (1-10): 6 Allergies Beef Containing Products Adverse Reaction (Severe, Verified 06/19/25 09:04) Upset Stomach Milk Containing Products (Dairy) Adverse Reaction (Severe, Verified 06/19/25 09:04) Upset Stomach Medications ?Medication ?Instructions ?Recorded ?Confirmed ?Type levonorgestrel 17.5 mcg/24 hr (up 1 device intrauterin e ONCE 06/19/25 06/19/25 History to 5 yrs) 19.5mg intrauterine device (Kyleena) Is last menstrual period known: Yes Last Menstrual Period: 06/16/25 Post menopausal: No Patient : No : No Control Method: kyleena [facility] Medical History History of steroid therapy Anemia Back pain Gastric reflux Non-smoker COVID Mononucleosis Depression Surgical History Hx of tonsillectomy H/O wisdom tooth extraction Family History (Updated 06/19/25 @ 09:19 by JOSIE Sosa) Mother Hyperlipidemia Endometriosis Father Heart disease Hypertension Grandmother Breast cancer Grandmother Diabetes Aunt Diabetes Social History adopted: No household members: significant other and family number of children: 0 current occupational status: employed 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 pets and animals: Yes (3) pets and animals: cat(s) sexually active: Yes Smoking Status: Never smoker Tobacco: How many years used: 1 how long ago did patient quit smokin alcohol intake: never substance use type: does not use caffeine: Yes (1) Type: coffee what type of physical activity do you participate in: walking frequency: daily seatbelt use: always do you feel safe at home: Yes History 0 Elective abortions Hx Para Spontaneous abortions Hx # Term Pregnancies Ectopic pregnancies Hx # Pregnancies Multiple births # of living children HPI Encounter for routine gynecological examination Details: EDISON PUENTE is a 25 year old who presents for annual exam. She is here to establish care; has Kyleena in place--placed 2020. She had this placed due to extremely heavy periods. She had an ultrasound completed in [place] and was told she had adenomyosis. She reports for the last year she has noticed irregular bleeding; she will have instances of 3 day bleeds then stops and restarts soon after. She is sexually active. She reports no concerns for std's; 1 partner. Last PAP: 2021; normal per pt. History of abnormal PAP: no Last mammogram: age 41 History of abnormal mammogram: n/a Colon cancer screening: age 46--follows with Dr. Alarcon for gastro. Other preventative health care screenings: Dr. Newsome; PCP Female Reproductive History Last Menstrual Period: 06/16/25 Questions: metrorrhagia: No, sexually active: Yes, dyspareunia: No and PCB: No ROS Const Constitutional: Denies chills, fatigue, fever(s), headache(s) or weight loss Eyes Eyes: Denies change in vision ENT ENT: Denies dizziness Cardio Card: Denies chest pain at rest or palpitations Resp Resp: Denies cough or dyspnea GI GI: Denies abdominal pain, constipation or nausea : Denies difficulty voiding, dysuria, hematuria, nipple discharge, pelvic pain, prolapse symptoms, urinary incontinence, vaginal discharge, vaginal dryness, vaginal odor or vaginal pruritus Skin Skin/Breast: Denies alopecia, rash, breast mass, breast pain, breast skin changes or nipple discharge Neuro Neuro: Denies dizziness Psych Psych: Denies anxiety or depression Endo Endo: Denies cold intolerance, excessive sweating or heat intolerance Exam Const General: cooperative, healthy appearing, comfortable, no acute distress, well groomed and well hydrated Nutritional Appearance: well nourished Orientation: alert, awake and oriented x3 HENMT Head: normal to inspection and normocephalic Ears: hearing grossly normal bilaterally and external ears normal Nose: external nose normal Face and sinus: normal facial exam Eyes General: appearance normal, both eyes and all related structures Neck Neck: normal visual inspection, full ROM and no lymphadenopathy Thyroid: thyroid normal Chest Chest palpation & inspection: normal inspection of the chest Breast inspection: normal inspection of the breasts and normal inspection of theaxillae Breast palpation: normal palpation of the breasts, normal palpation of the axillae and no axillary lymphadenopathy Resp Effort & Inspection: normal respiratory effort, able to speak in complete sentences and symmetric chest movement GI Inspection: normal to inspection Palpation: soft and no hepatosplenomegaly General: bladder normal to palpation External Female Exam: normal external appearance and normal appearance of the urethra Urethra: normal appearance of the urethra Speculum Exam - Vagina: normal appearance of the vagina, normal vaginal discharge, no lesions and nontender Speculum Exam - Cervix: normal appearance of the cervix (strings at cervical os;menses present. ), no lesions and no masses Bimanual Exam- Vagina & Uterus: normal bimanual exam, uterine size normal, bladder normal to palpation, normal palpation and non-tender Bimanual Exam- Adnexa, other: normal adnexae, no masses, normal and non-tender Pelvic Support: normal Skin General: no rashes or lesions noted Neuro General: patient alert, patient awake, patient oriented x3 and moves all extremities Psych Appearance: grossly normal Mental Status: mental status grossly normal Affect: normal affect Speech and Movement: speech and movement normal Attitude: cooperative Coding Level of Care Code New Pt Off vis,new,prev 18-39yrs Patient Type New Diagnoses Encounter for routine gynecological examination Z01.419 Irregular menses N92.6 Assessment and Plan Assessment and Plan (1) Encounter for routine gynecological examination: Plan: Breast and pelvic exam complete. PAP due: completed today Mammogram due: routine screenings age 41 Advised self breast exams monthly. Contraception: kyleena IUD; placed 2020. Advised incorporating healthy dietary choices such as increase in lean meats, fruits/vegetables, less processed food/sat fat/trans fats. Increase exercise to 30 minutes per day/5 days a week. This can include both weight bearing exercisesand/or brisk walking. Follow up with PCP for further preventative health screenings. Follow up 1 year for repeat annual family partner exam. Call office sooner with questions or concerns. (2) Irregular menses: Status: Acute Plan: Would like to switch out IUD early. RTO to have this completed. Will need to choose which IUD she would like to proceed with as our office does not insert kyleena. Orders: Orders PAP I-G w/rfx hrHPV-Aptima Today Z12.4 - Encounter for screening for malignant neoplasm of cervix 06/19/25 1121 <Electronically signed by Jaz COVARRUBIASC> Date _ Jaz COVARRUBIASC Cosigner Signature: Date (if applicable) CC: ~ [facility] Work Phone: Reason for referral (narrative)No reason for referral information availableSan Clemente Hospital And [facility] Center Work Phone: Summary Purpose Family History Relationship Condition Age at Onset Recorded Date/T carolynn mother Hyperlipidemia Unknown father Cardiac disease Unknown Hypertension Unknown grandmother Malignant neoplasm of breast Unknown grandmother Diabetes mellitus Unknown aunt Diabetes mellitus Unknown Relationship Condition Age at Onset Recorded Date/T carolynn mother Hyperlipidemia Unknown Endometriosis Unknown father Cardiac disease Unknown Hypertension Unknown grandmother Malignant neoplasm of breast Unknown grandmother Diabetes mellitus Unknown aunt Diabetes mellitus Unknown Advance Directives Advance Directive Response Recorded Date/ Time Do you have a Healthcare Power of Civil Division Deputy Sheriff? No June 11, 2025 9:25am Advance Directive Response Recorded Date/ Time Do you have a Healthcare Power of Civil Division Deputy Sheriff? 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 March 10, 2025 10: 59am Abdominal pain April 28, 2025 2:5 4pm Reason for Visit Admit Date Immunization declined March 10, 2025 10 :59am Moderate major depression March 10 10:59am Mild anxiety March 10, 2025 10:5 9am Establishing care with new doctor, romario nter for March 10, 2025 10:59am Fatigue March 10, 2025 10:5 9am Chronic abdominal pain March 10, 2025 1 0:59am Epigastric pain April 28, 2025 2:5 4pm LLQ pain April 28, 2025 2:5 4pm Melena April 28, 2025 2:5 4pm Nausea April 28, 2025 2:5 4pm Abdominal pain April 28, 2025 2:5 4pm Reason for Visit Admit Date Immunization declined March 10, 2025 10 :59am Moderate major depression March 10 10:59am Mild anxiety March 10, 2025 10:5 9am Establishing care with new doctor, romario nter for March 10, 2025 10:59am Fatigue March 10, 2025 10:5 9am Chronic abdominal pain March 10, 2025 1 0:59am Epigastric pain April 28, 2025 2:5 4pm LLQ pain April 28, 2025 2:5 4pm Melena April 28, 2025 2:5 4pm Nausea April 28, 2025 2:5 4pm Chief Complaint Admit Date 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 March 10, 2025 10: 59am Abdominal pain April 28, 2025 2:5 4pm 3 week FU May 19, 2025 2: 43pm Reason for Visit Admit Date Immunization declined March 10, 2025 10 :59am Moderate major depression March 10 10:59am Mild anxiety March 10, 2025 10:5 9am Establishing care with new doctor, amilcarou nter for March 10, 2025 10:59am Fatigue March 10, 2025 10:5 9am Chronic abdominal pain March 10, 2025 1 0:59am Epigastric pain April 28, 2025 2:5 4pm LLQ pain April 28, 2025 2:5 4pm Melena April 28, 2025 2:5 4pm Nausea April 28, 2025 2:5 4pm Abdominal cramping May 19, 2025 2: 43pm Epigastric pain May 19, 2025 2: 43pm LLQ pain May 19, 2025 2: 43pm Nausea May 19, 2025 2: 43pm Chief Complaint Admit Date 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 March 10, 2025 10: 59am Abdominal pain April 28, 2025 2:5 4pm 3 week FU May 19, 2025 2: 43pm EPIGASTRIC PAIN June 02, 2025 10:02am 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, 2025 9:01am Reason for Visit Admit Date Immunization declined March 10, 2025 10 :59am Moderate major depression March 10 10:59am Mild anxiety March 10, 2025 10:5 9am Establishing care with new doctor, romario fairbanks for March 10, 2025 10:59am Fatigue March 10, 2025 10:5 9am Chronic abdominal pain March 10, 2025 1 0:59am Epigastric pain April 28, 2025 2:5 4pm LLQ pain April 28, 2025 2:5 4pm Melena April 28, 2025 2:5 4pm Nausea April 28, 2025 2:5 4pm Abdominal cramping May 19, 2025 2: 43pm Epigastric pain May 19, 2025 2: 43pm LLQ pain May 19, 2025 2: 43pm Nausea May 19, 2025 2: 43pm Abdominal cramping June 16, 2025 10:24am LLQ pain June 16, 2025 10:24am Nausea June 16, 2025 10:24am Irregular menses June 19, 2025 9:01am Encounter for routine gynecological exam ination June 19, 2025 9:01am Chief Complaint Admit Date Abdominal pain April 28, 2025 2:5 4pm 3 week FU May 19, 2025 2: 43pm EPIGASTRIC PAIN June 02, 2025 10:02am 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, 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 9:01am F/u Abdominal cramping July 14 2:34pm Reason for Visit Admit Date Epigastric pain April 28, 2025 2:5 4pm LLQ pain April 28, 2025 2:5 4pm Melena April 28, 2025 2:5 4pm Nausea April 28, 2025 2:5 4pm Abdominal cramping May 19, 2025 2: 43pm Epigastric pain May 19, 2025 2: 43pm LLQ pain May 19, 2025 2: 43pm Nausea May 19, 2025 2: 43pm Abdominal cramping June 16, 2025 10:24am LLQ pain June 16, 2025 10:24am Nausea June 16, 2025 10:24am Irregular menses June 19, 2025 9:01am Encounter for routine gynecological exam ination June 19, 2025 9:01am Constipation July 14, 2025 2 :34pm Epigastric pain July 14, 2025 2 :34pm Additional Source Comments INFORMATION SOURCE (unrecogn ized section and content) DATE CREATED AUTHOR 10/27/2021 [facility] DATE CREATED AUTHOR AUTHOR'S ORGANIZ ATION 03/11/2022 [facility] DATE CREATED AUTHOR AUTHOR'S ORGANIZ ATION 10/05/2022 [facility] DATE CREATED AUTHOR AUTHOR'S ORGANIZ ATION 03/14/2025 [facility] DATE CREATED AUTHOR AUTHOR'S ORGANIZ ATION 06/30/2025 [facility] DATE CREATED AUTHOR AUTHOR'S ORGANIZ ATION 07/20/2025 [facility] Source Comments (unrecognize d section and content) In the event this informatio n is protected by the Federal Confidentiality of Alcohol and Drug Abuse Patient Records regulations: The Federal rules restrict any use of the information to criminally investigate or prosecute any alcohol or drug abuse patient.[facility] the event this information is protected by the Federal Confidentiality of Alcohol and Drug Abuse Patient Records regulations: The Federal rules restrict any use of the information to criminally investigate or prosecute any alcohol or drug abuse patient.[facility] the event this information is protected by the Federal Confidentiality of Alcohol and Drug Abuse Patient Records regulations: The Federal rules restrict any use of the information to criminally investigate or prosecute any alcohol or drug abuse patient.[facility] the event this information is protected by the Federal Confidentiality of Alcohol and Drug Abuse Patient Records regulations: The Federal rules restrict any use of the information to criminally investigate or prosecute any alcohol or drug abuse patient.[facility] the event this information is protected by the Federal Confidentiality of Alcohol and Drug Abuse Patient Records regulations: The Federal rules restrict any use of the information to criminally investigate or prosecute any alcohol or drug abuse patient.[facility] Center[facility] the event this information is protected by the Federal Confidentiality of Alcohol and Drug Abuse Patient Records regulations: The Federal rules restrict any use of the information to criminally investigate or prosecute any alcohol or drug abuse patient.[facility] Center[facility] the event this information is protected by the Federal Confidentiality of Alcohol and Drug Abuse Patient Records regulations: The Federal rules restrict any use of the information to criminally investigate or prosecute any alcohol or drug abuse patient.[facility] Reason for Visit (unrecogniz ed section and content) Reason Comments Flu Like Symptoms Cough, SOB, ST, [place], fever x2 days Reason Comments Urinary Frequency Frequency and low ba ck pain x 3 days Reason Comments Low Back Pain frequency and fever x 4 days Reason Comments Urinary Frequency Frequency, burning a nd lower back pain x 1 day Reason Comments Urinary Problem urinated 1 time toda y, low back and pelvic pain x 1 day Care Teams (unrecognized sec tion and content) 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 Melissa Newsome MD Primary Care Provider Active Team Status: Inactive Member Role Status Dates Dr. Melissa Newsome MD Attending Provider Active Start: March 10, 2025 End: March 10, 2025 Team Status: Active Member Role Status Dates Dr. Melissa Newsome MD Primary Care Provider Active Start: March 10, 2025 Dr. Melissa Newsome MD Attending Provider Active Start: March 10, 2025 Dr. Melissa Newsome MD Referring Provider Active Start: March 10, 2025 Team Status: Inactive Member Role Status Dates Dr. Melissa Newsome MD Primary Care Provider Active Start: March 10, 2025 End: March 10, 2025 Dr. Melissa Newsome MD Attending Provider Active Start: March 10, 2025 End: March 10, 2025 Dr. Melissa Newsome MD Referring Provider Active Start: March 10, 2025 End: March 10, 2025 Team Status: Active Member Role/Relationship Status Dates Dr. Melissa Newsome MD Primary Care Provider Active Team Status: Inactive Member Role/Relationship Status Dates Dr. Melissa Newsome MD Attending Provider Active Start: March 10, 2025 End: March 10, 2025 Team Status: Inactive Member Role/Relationship Status Dates Dr. Melissa Newsome MD Primary Care Provider Active Start: March 10, 2025 End: March 10, 2025 Dr. Melissa Newsome MD Attending Provider Active Start: March 10, 2025 End: March 10, 2025 Dr. Melissa Newsome MD Referring Provider Active Start: March 10, 2025 End: March 10, 2025 Team Status: Inactive Member Role/Relationship Status Dates Dr. Melissa Newsome MD Primary Care Provider Active Start: April 28, 2025 End: April 28, 2025 Dr. Melissa Newsome MD Referring Provider Active Start: April 28, 2025 End: April 28, 2025 MARCI LeonC Attending Provider Active Start: April 28, 2025 End: April 28, 2025 Team Status: Inactive Member Role/Relationship Status Dates Dr. Melissa Newsome MD Primary Care Provider Active Start: April 28, 2025 End: April 28, 2025 MARCI LeonC Attending Provider Active Start: April 28, 2025 End: April 28, 2025 JOSIE Leon Referring Provider Active Start: April 28, 2025 End: April 28, 2025 Team Status: Inactive Member Role/Relationship Status Dates Dr. Melissa Newsome MD Primary Care Provider Active Start: May 19, 2025 End: May 19, 2025 Dr. Melissa Newsome MD Referring Provider Active Start: May 19, 2025 End: May 19, 2025 Mary Chauhan NP-C Attending Provider Active Start: May 19, 2025 End: May 19, 2025 Team Status: Active Member Role/Relationship Status Dates Dr. Melissa Newsome MD Primary care physician Active Team Status: Inactive Member Role/Relationship Status Dates Dr. Melissa Newsome MD Attending physician Active Start: March 10, 2025 End: March 10, 2025 Team Status: Inactive Member Role/Relationship Status Dates Dr. Melissa Newsome MD Primary care physician Active Start: March 10, 2025 End: March 10, 2025 Dr. Melissa Newsome MD Attending physician Active Start: March 10, 2025 End: March 10, 2025 Dr. Melissa Newsome MD Referring Provider Active Start: March 10, 2025 End: March 10, 2025 Team Status: Inactive Member Role/Relationship Status Dates Dr. Melissa Newsome MD Primary care physician Active Start: April 28, 2025 End: April 28, 2025 Dr. Melissa Newsome MD Referring Provider Active Start: April 28, 2025 End: April 28, 2025 Mary Chauhan NP-C Attending physician Active Start: April 28, 2025 End: April 28, 2025 Team Status: Inactive Member Role/Relationship Status Dates Dr. Melissa Newsome MD Primary care physician Active Start: April 28, 2025 End: April 28, 2025 Mary Chauhan NP-C Attending physician Active Start: April 28, 2025 End: April 28, 2025 Mary Chauhan NP-C Referring Provider Active Start: April 28, 2025 End: April 28, 2025 Team Status: Inactive Member Role/Relationship Status Dates Dr. Melissa Newsome MD Primary care physician Active Start: May 19, 2025 End: May 19, 2025 Dr. Melissa Newsome MD Referring Provider Active Start: May 19, 2025 End: May 19, 2025 Mary Chauhan NP-C Attending physician Active Start: May 19, 2025 End: May 19, 2025 Team Status: Inactive Member Role/Relationship Status Dates Dr. Melissa Newsome MD Primary care physician Active Start: June 02, 2025 End: June 02, 2025 MARCI LeonC Attending physician Active Start: June 02, 2025 End: June 02, 2025 JOSIE Leon Referring Provider Active Start: June 02, 2025 End: June 02, 2025 Team Status: Inactive Member Role/Relationship Status Dates Dr. Melissa Newsome MD Primary care physician Active Start: June 16, 2025 End: June 16, 2025 Dr. Melissa Newsome MD Referring Provider Active Start: June 16, 2025 End: June 16, 2025 Dr. Mike Alarcon DO Attending physician Active Start: June 16, 2025 End: June 16, 2025 Team Status: Active Member Role/Relationship Status Dates Dr. Melissa Newsome MD Primary care physician Active Start: June 16, 2025 Dr. Melissa Newsome MD Referring Provider Active Start: June 16, 2025 Dr. Mike Alarcon DO Attending physician Active Start: June 16, 2025 Dr. Mike Alarcon DO Nurse Practitioner Active Start: June 16, 2025 Team Status: Inactive Member Role/Relationship Status Dates JOSIE Sosa Attending physician Active Start: June 19, 2025 End: June 19, 2025 Dr. Melissa Newsome MD Primary care physician Active Start: June 19, 2025 End: June 19, 2025 Dr. Melissa Newsome MD Referring Provider Active Start: June 19, 2025 End: June 19, 2025 Team Status: Active Member Role/Relationship Status Dates Dr. Melissa Newsome MD Primary care physician Active Start: June 19, 2025 JOSIE Sosa Attending physician Active Start: June 19, 2025 JOSIE Sosa Referring Provider Active Start: June 19, 2025 Team Status: Inactive Member Role/Relationship Status Dates Dr. Melissa Newsome MD Primary care physician Active Start: April 28, 2025 End: April 28, 2025 Dr. Melissa Newsome MD Referring Provider Active Start: April 28, 2025 End: April 28, 2025 MARCI LeonC Attending physician Active Start: April 28, 2025 End: April 28, 2025 Team Status: Inactive Member Role/Relationship Status Dates Dr. Melissa Newsome MD Primary care physician Active Start: April 28, 2025 End: April 28, 2025 Mary Chauhan NP-C Attending physician Active Start: April 28, 2025 End: April 28, 2025 Mary Chauhan NP-C Referring Provider Active Start: April 28, 2025 End: April 28, 2025 Team Status: Inactive Member Role/Relationship Status Dates Dr. Melissa Newsome MD Primary care physician Active Start: May 19, 2025 End: May 19, 2025 Dr. Melissa Newsome MD Referring Provider Active Start: May 19, 2025 End: May 19, 2025 Mary Chauhan NP-C Attending physician Active Start: May 19, 2025 End: May 19, 2025 Team Status: Inactive Member Role/Relationship Status Dates Dr. Melissa Newsome MD Primary care physician Active Start: June 02, 2025 End: June 02, 2025 Mary Chauhan NP-C Attending physician Active Start: June 02, 2025 End: June 02, 2025 MARCI LeonC Referring Provider Active Start: June 02, 2025 End: June 02, 2025 Team Status: Inactive Member Role/Relationship Status Dates Dr. Melissa Newsome MD Primary care physician Active Start: June 16, 2025 End: June 16, 2025 Dr. Melissa Newsome MD Referring Provider Active Start: June 16, 2025 End: June 16, 2025 Dr. Mike Alarcon DO Attending physician Active Start: June 16, 2025 End: June 16, 2025 Team Status: Active Member Role/Relationship Status Dates Dr. Melissa Newsome MD Primary care physician Active Start: June 16, 2025 Dr. Melissa Newsome MD Referring Provider Active Start: June 16, 2025 Dr. Mike Alarcon DO Attending physician Active Start: June 16, 2025 Dr. Mike Alarcon DO Nurse Practitioner Active Start: June 16, 2025 Team Status: Inactive Member Role/Relationship Status Dates JOSIE Sosa Attending physician Active Start: June 19, 2025 End: June 19, 2025 Dr. Melissa Newsome MD Primary care physician Active Start: June 19, 2025 End: June 19, 2025 Dr. Melissa Newsome MD Referring Provider Active Start: June 19, 2025 End: June 19, 2025 Team Status: Inactive Member Role/Relationship Status Dates Dr. Melisas Newsome MD Primary care physician Active Start: June 19, 2025 End: June 19, 2025 JOSIE Sosa Attending physician Active Start: June 19, 2025 End: June 19, 2025 JOSIE Sosa Referring Provider Active Start: June 19, 2025 End: June 19, 2025 Team Status: Inactive Member Role/Relationship Status Dates Dr. Melissa Newsome MD Primary care physician Active Start: July 14, 2025 End: July 14, 2025 Dr. Melissa Newsome MD Referring Provider Active Start: July 14, 2025 End: July 14, 2025 JOSIE Leon Attending physician Active Start: July 14, 2025 End: July 14, 2025 Goals (unrecognized section and content) Goals may be documented in a n alternate sectionGoals may be documented in an alternate sectionGoals may be documented in an alternate sectionGoals may be documented in an alternate sectionGoals may be documented in an alternate section FOR RECORDS PERTAINING TO PATIENTS WHO ARE OR HAVE BEEN ENROLLED IN A CHEMICAL DEPENDENCY/SUBSTANCEABUSE PROGRAM, SOME INFORMATION MAY BE OMITTED. This clinical summary was aggregated from multiple sources. Caution should be exercised in using it in the provision of clinical care. This summary normalizes information from multiple sources, and as a consequence, information in this document may materially change the coding, format and clinical context of patient data. In addition, data may be omitted in some cases. CLINICAL DECISIONS SHOULD BE BASED ON THE PRIMARY CLINICAL RECORDS. [employer] [facility]. provides no warranty or guarantee of the accuracy or completeness of information in this document.
--- NOTE | 2025-09-16 21:30 | EDS_ITS ---
HPI History of Present Illness Chief Complaint: Other, Pain/Inj Narrative Narrative: Patient is a 25-year-old female with past medical history of GERD, anemia, depression who presents to the emergency department with a chief complaint of left breast pain. She notes that her pain has been going on for about a week however she noted that her left breast has become more swollen and painful and she states that she went to squeeze us and noted that there was a white discharge coming from her left nipple. She states that this is never happened before she notes that she had her IUD replaced fairly recently secondary to her first 1 being then for an extended period of time she states that there were no complications with this. She denies any fevers or chills. [facility] Medical History Contraceptive management History of steroid therapy Anemia Back pain Gastric reflux Non-smoker COVID Mononucleosis Depression Home Medications ?Medication ?Instructions ?Recorded ?Last Taken ?Type levonorgestrel (Mirena) 1 device intrauterine ONCE 1 10/27/24 Unknown History multivitamin 1 tab PO DAILY 09/16/25 Unkn own History Allergy/AdvReac Type Severity Reaction Status Date / Time Beef Containing Products AdvReac Severe Upset Verified 09/16/25 20:19 Stomach Milk Containing Products AdvReac Severe Upset Verified 09/16/25 20:19 (Dairy) Stomach Family History Mother Hyperlipidemia Endometriosis Father Heart disease Hypertension Grandmother Breast cancer Grandmother Diabetes Aunt Diabetes Surgical History Hx of tonsillectomy H/O wisdom tooth extraction Social History adopted: No household members: significant other and family number of children: 0 current occupational status: employed 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 pets and animals: Yes (3) pets and animals: cat(s) sexually active: Yes Smoking Status: Never smoker Tobacco: How many years used: 1 how long ago did patient quit smokin alcohol intake: never substance use type: does not use caffeine: Yes (1) Type: coffee what type of physical activity do you participate in: walking frequency: daily seatbelt use: always do you feel safe at home: Yes ROS ROS ED ROS Narrative Constitutional: Denies any fevers, chills, headaches Eyes: Denies double vision Cardiovascular: Denies chest pain Respiratory: No shortness of breath Neurological: Denies any numbness or tingling Musculoskeletal: Complains of left breast pain as noted above as well as discharge Skin: Denies any rashes or lesions EXAM Physical Exam Narrative Exam Narrative: General: Patient was lying in bed resting comfortably did not appear to be in acute distress Head: Atraumatic, normocephalic Eyes: PERRL bilaterally, EOMI bilaterally, no conjunctival injection noted Neck: Soft, supple, trachea midline Cardiovascular: Regular rate and rhythm Musculoskeletal: Patient's left breast was noted to be firm in nature no large area of fluctuance noted I was unable to express these white discharge from her left nipple this was performed with trim setter present no nipple retraction no dimpling of the skin Extremities: +5/5 strength noted in the bilateral upper and lower extremities Neurological: Patient is following commands that she was at [facility] year is 2024 Skin: Warm, dry, tact no rashes or lesions noted Const Vital Signs: 09/16/25 20:17 09/16/25 20:41 09/16/25 22:00 Temperature 98.9 F Temperature Source Oral Pulse Rate 76 63 Respiratory Rate 16 16 Respiratory Effort Normal Non-Labored Respiratory Pattern Normal Blood Pressure 111/67 105/67 Blood Pressure Mean 81 79 Pulse Ox 100 100 Oxygen Delivery Method Room Air Room Air MDM MDM MDM Narrative Medical decision making narrative: Patient is a 25-year-old female who presents to the emergency department chief complaint of left breast pain and swelling as well as discharge. On the differential diagnose includes but not limited to abscess, mass. Once workup is obtained reviewed she will be reevaluated. Patient ultrasound was reviewed which showed left breast hypoechoic circumcised solid lesion at the 7 o'clock position 3 cm from the nipple measuring 2.3 x 0.9 cm with internal vascularity imaging features are indeterminate and ultrasound guided biopsy was recommended. I did provide a hardcopy of these results to the patient she was advised to show her doctor. I discussed the case with on-call general surgeon Dr. Clemons who states that he will see her in the outpatient setting. I discussed this plan with the patient she is agreeable to plan all course concerns answered she was discharged home in stable condition. Lab Data Labs: Laboratory Results - last 24 hr 09/16/25 21:45 Urine Test Negative Radiography Diagnostic Testing: Clinical Impression(s) from Imaging Studies Breast Ultrasound 09/16/25 20:42 IMPRESSION: Left breast hypoechoic circumscribed solid lesion at the 7 o'clock position, 3 cm from the nipple, measuring 2.3 x 0.9 cm, with internal vascularity. Imaging features are indeterminate. BI-RADS Category 4. Ultrasound-guided biopsy is recommended. No prior mammogram is available for correlation. [facility] T[facility] Chief Complaint: Other, Pain/Inj ED Provider: Rashaad Phillips Dx/Rx/DC Orders Clinical Impression: Breast mass, left, Breast pain, left, Nipple discharge Prescriptions: No Action Mirena 21 mcg/24hr (up to 8 yrs) 52 mg intrauterine device 1 device intrauterine ONCE Rx Instructions: as a single dose multivitamin Tablet 1 tab PO DAILY Primary Care Provider: Melissa Newsome Referrals: Tien Clemons MD [Med Staff - Active Staff, General Surgery] Melissa Newsome MD [Primary Care Provider, Internal Medicine] Activity Restrictions/Additional Instructions: Show the ultrasound result to the general surgeon they referred to. Call their office for an appointment. Return with worsening symptoms or any other concerns Print Language: Italian Disposition Disposition: Home, Self Care
[2025-09-16 22:00] VITALS: BP 105/67; PULSE 63; RESP 16; O2SAT 100
[2025-09-16 22:09] LABS: Internal QC Validated? YES +Cl - CLEAR BKGD; Pregnancy, Urine Negative Negative
[2025-09-16 23:26] VITALS: BP 108/71; PULSE 64; RESP 16; TEMP 36.8; O2SAT 100
== END 2025-09-16 23:30 | disposition home or self-care (01) ==
PROVIDERS: Emergency Provider Emergency Medicine; PCP Internal Medicine; Visit Provider Emergency Medicine
DX: N64.4 Mastodynia (principal); N64.52 Nipple discharge; N63.20 Unspecified lump in the left breast, unspecified quadrant
CPT/HCPCS: 76642; 81025; 99282